=== PATIENT | female | born 1935 | race Caucasian/White ===

== ENCOUNTER 2019-03-21 10:57 | Inpatient (IN) | payer MEDICARE, OTHER ==
[2019-03-21] MEDS ORDERED: methylPREDNISolone SOD SUCCI 125 MG/2 ML VIAL IV STA (11:13)
[2019-03-21] MEDS ORDERED: IPRATROPIUM-ALBUTEROL 3 ML NEB INHALATION STA ×2 (11:13→14:29)
--- NOTE | 2019-03-21 11:18 | ED ---
General Adult HPI - General Chief complaint: Shortness of Breath Stated complaint: MATTEO Time Seen by Provider: 03/21/19 11:07 Source: patient, EMS Mode of arrival: EMS Limitations: no limitations - History of Present Illness Initial comments: Patient presents to the ED by ambulance for evaluation. Patient states that she has felt dyspneic since this morning. Patient also admits to having a cough and nasal congestion. Patient has a history of COPD and CHF. Patient was given a DuoNeb treatment by EMS with some improvement in her dyspnea per patient. Patient denies having any pain, fever or chills, a headache, focal neuro deficit, chest pain, hemoptysis, palpitations, dizziness, nausea/vomiting/diaphoresis, abdominal pain, decreased urine output, urinary symptoms, leg or calf swelling or tenderness, or any other symptoms or complaints. - Related Data Home Medications Medication Instructions Recorded Confirmed Albuterol Inhaler [Ventolin Hfa 1 - 2 puff INHALATION RT-Q6H PRN 03/21/19 03/21/19 Inhaler] Allergies Allergy/AdvReac Type Severity Reaction Status Date / Time No Known Allergies Allergy Unverified 03/21/19 11:16 Review of Systems ROS Statement: Those systems with pertinent positive or pertinent negative responses have been documented in the HPI. ROS Other: All systems not noted in ROS Statement are negative. Past Medical History Past Medical History: Heart Failure, COPD History of Any Multi-Drug Resistant Organisms: None Reported Past Surgical History: Hysterectomy, Tonsillectomy Past Psychological History: No Psychological Hx Reported Smoking Status: Former smoker Past Alcohol Use History: None Reported Past Drug Use History: None Reported General Exam Limitations: no limitations General appearance: alert, in no apparent distress Head exam: Present: atraumatic, normocephalic Eye exam: Present: normal appearance, EOMI ENT exam: Present: mucous membranes moist Neck exam: Present: other (Trachea is in midline) Respiratory exam: Present: wheezes, decreased breath sounds. Absent: respirator y distress, rales, rhonchi, stridor Cardiovascular Exam: Present: regular rate, normal rhythm, normal heart sounds, other (Normal radial pulses bilaterally) GI/Abdominal exam: Present: soft. Absent: distended, tenderness Extremities exam: Absent: tenderness, pedal edema, calf tenderness Neurological exam: Present: alert, oriented X3. Absent: motor sensory deficit Psychiatric exam: Present: normal affect, normal mood Skin exam: Present: warm, dry, intact, normal color Course Vital Signs 03/21/19 03/21/19 03/21/19 11:11 11:43 11:51 Temperature 97.1 F L Pulse Rate 95 90 92 Respiratory 22 Rate Blood Pressure 134/85 O2 Sat by Pulse 96 Oximetry 03/21/19 12:38 Temperature Pulse Rate 94 Respiratory 18 Rate Blood Pressure 120/73 O2 Sat by Pulse 95 Oximetry - Reevaluation(s) Reevaluation #1: 03/21/19 14:24 Case, H&P, test results and ED management thus far were discussed with Dr. Rodriguez. He accepts hospital floor admission. He has no further recommendations at this time. 03/21/19 14:45 Patient states that her dyspnea has improved with the DuoNeb treatment that she received in the ED. Patient denies development of any new symptoms while in the ED. Patient remains alert and breathing comfortably. Patient is aware of her test results, and she agrees with hospital admission at this time. EKG Findings - EKG Comments: EKG Findings:: Normal sinus rhythm, ventricular rate of 91 bpm, normal OH and QRS intervals, normal QT interval, no ST or T-wave abnormality, normal axis, normal EKG Medical Decision Making - Medical Decision Making I suspect that the patient's dyspnea is likely secondary to COPD exacerbation and community-acquired pneumonia. Patient has been treated with DuoNeb treatments, IV steroids and IV antibiotics. Patient will be admitted to the medical service under care of Dr. Rodriguez. - Lab Data Result diagrams: 03/21/19 11:15 03/21/19 11:15 Lab Results 03/21/19 03/21/19 03/21/19 Range/Units 11:15 11:15 11:15 WBC 10.5 (3.8-10.6) k/uL RBC 4.26 (3.80-5.40) m/uL Hgb 12.3 (11.4-16.0) gm/dL Hct 38.0 (34.0-46.0) % MCV 89.1 (80.0-100.0) fL MCH 28.9 (25.0-35.0) pg MCHC 32.4 (31.0-37.0) g/dL RDW 13.3 (11.5-15.5) % Plt Count 404 (150-450) k/uL Neutrophils % 78 % Lymphocytes % 12 % Monocytes % 6 % Eosinophils % 2 % Basophils % 1 % Neutrophils # 8.2 H (1.3-7.7) k/uL Lymphocytes # 1.3 (1.0-4.8) k/uL Monocytes # 0.6 (0-1.0) k/uL Eosinophils # 0.2 (0-0.7) k/uL Basophils # 0.1 (0-0.2) k/uL Hypochromasia Slight PT (9.0-12.0) sec INR (<1.2) APTT (22.0-30.0) sec Sodium (137-145) mmol/L Potassium (3.5-5.1) mmol/L Chloride (98-107) mmol/L Carbon Dioxide (22-30) mmol/L Anion Gap mmol/L BUN (7-17) mg/dL Creatinine (0.52-1.04) mg/dL Est GFR (CKD-EPI)AfAm (>60 ml/min/1.73 sqM) Est GFR (CKD-EPI)NonAf (>60 ml/min/1.73 sqM) Glucose (74-99) mg/dL Plasma Lactic Acid Jr 1.4 (0.7-2.0) mmol/L Calcium (8.4-10.2) mg/dL Total Bilirubin (0.2-1.3) mg/dL AST (14-36) U/L ALT (9-52) U/L Alkaline Phosphatase (38-126) U/L Troponin I (0.000-0.034) ng/mL NT-Pro-B Natriuret Pep 216 pg/mL Total Protein (6.3-8.2) g/dL Albumin (3.5-5.0) g/dL 03/21/19 03/21/19 03/21/19 Range/Units 11:15 11:15 11:15 WBC (3.8-10.6) k/uL RBC (3.80-5.40) m/uL Hgb (11.4-16.0) gm/dL Hct (34.0-46.0) % MCV (80.0-100.0) fL MCH (25.0-35.0) pg MCHC (31.0-37.0) g/dL RDW (11.5-15.5) % Plt Count (150-450) k/uL Neutrophils % % Lymphocytes % % Monocytes % % Eosinophils % % Basophils % % Neutrophils # (1.3-7.7) k/uL Lymphocytes # (1.0-4.8) k/uL Monocytes # (0-1.0) k/uL Eosinophils # (0-0.7) k/uL Basophils # (0-0.2) k/uL Hypochromasia PT 10.2 (9.0-12.0) sec INR 0.9 (<1.2) APTT 26.1 (22.0-30.0) sec Sodium 141 (137-145) mmol/L Potassium 4.6 (3.5-5.1) mmol/L Chloride 102 (98-107) mmol/L Carbon Dioxide 33 H (22-30) mmol/L Anion Gap 6 mmol/L BUN 24 H (7-17) mg/dL Creatinine 0.81 (0.52-1.04) mg/dL Est GFR (CKD-EPI)AfAm 77 (>60 ml/min/1.73 sqM) Est GFR (CKD-EPI)NonAf 67 (>60 ml/min/1.73 sqM) Glucose 91 (74-99) mg/dL Plasma Lactic Acid Jr (0.7-2.0) mmol/L Calcium 9.5 (8.4-10.2) mg/dL Total Bilirubin 0.4 (0.2-1.3) mg/dL AST 25 (14-36) U/L ALT 9 (9-52) U/L Alkaline Phosphatase 77 (38-126) U/L Troponin I <0.012 (0.000-0.034) ng/mL NT-Pro-B Natriuret Pep pg/mL Total Protein 6.8 (6.3-8.2) g/dL Albumin 3.8 (3.5-5.0) g/dL - Radiology Data Radiology results: image reviewed (Chest x-ray shows mild cardiomegaly, hyperinflated lungs and a right middle lobe infiltrate) Disposition Clinical Impression: Dyspnea, Acute exacerbation of chronic obstructive pulmonary disease, Community acquired pneumonia Disposition: ADMITTED IP TO THIS HOSP Condition: Stable Is patient prescribed a controlled substance at d/c from ED?: No Referrals: Jp Caraballo DO [Primary Care Provider] - 1-2 days Time of Disposition: 14:24 Decision Date: 03/21/19 Decision Time: 14:24
[2019-03-21 11:51] LABS: Basophils # (A) 0.1 k/uL (0-0.2); Basophils % (A) 1 %; Eosinophils # (A) 0.2 k/uL (0-0.7); Eosinophils % (A) 2 %; HGB 12.3 gm/dL (11.4-16.0); Hypochromasia Slight; Lymphocytes # (A) 1.3 k/uL (1.0-4.8); Lymphocytes % (A) 12 %; MCH 28.9 pg (25.0-35.0); MCHC 32.4 g/dL (31.0-37.0); MCV 89.1 fL (80.0-100.0); Mean Platelet Volume 6.1; Monocytes # (A) 0.6 k/uL (0-1.0); Monocytes % (A) 6 %; Neutrophils # (A) 8.2 k/uL (1.3-7.7); Neutrophils % (A) 78 %; Platelet Count 404 k/uL (150-450); RBC 4.26 m/uL (3.80-5.40); RDW 13.3 % (11.5-15.5); WBC 10.5 k/uL (3.8-10.6)
[2019-03-21 11:59] LABS: Albumin 3.8 g/dL (3.5-5.0); Calcium 9.5 mg/dL (8.4-10.2); Potassium 4.6 mmol/L (3.5-5.1); Total Bilirubin 0.4 mg/dL (0.2-1.3); Total Protein 6.8 g/dL (6.3-8.2)
[2019-03-21 12:08] LABS: INR 0.9 (<1.2); Partial Thromboplastin Time 26.1 sec (22.0-30.0); Prothrombin Time 10.2 sec (9.0-12.0)
--- NOTE | 2019-03-21 13:59 | XR ---
EXAMINATION TYPE: XR chest 2V DATE OF EXAM: 03/21/2019 HISTORY: difficulty breathing. REFERENCE: NONE. FINDINGS: The lungs are overinflated. The heart is mildly enlarged. There is some scarring in the rig ht upper lung. Left lung is clear. There is some increased density of the right lung base. I cannot r ule out a right middle lobe infiltrate. IMPRESSION: 1. COPD. 2. MILD CARDIOMEGALY. 3. I COULD NOT EXCLUDE AN EARLY INFILTRATE IN THE RIGHT MIDDLE LOBE.
[2019-03-21] MEDS ORDERED: AZITHROMYCIN 500 MG in SODIUM CHLORIDE 0.9% 250 ML IVPB STA ×2 (14:18→14:29)
[2019-03-21] MEDS: ALBUTEROL NEBULIZED 2.5 MG/3 ML INHALATION SCH ×2 (14:55→20:20)
[2019-03-21 16:55] LABS: Glucose,Whole Blood 167 mg/dL (75-99)
[2019-03-21] MEDS: methylPREDNISolone SOD SUCCI 40 MG/ML 1 ML VIAL IV SCH (17:47)
--- NOTE | 2019-03-21 17:53 | P.HPIM ---
History of Present Illness This is a pleasant 83 years old female with past medical history of COPD and heart failure presents because of dyspnea and mild dry cough of one day duration as per pt, pt is ex-smoker who quit about few months ago, however she denies chest pain , no change in her urine or bowel habits, no fever she is not on home oxygen or steroids, she states she had copd exacerbation about one month ago. 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 Chest x-ray: COPD, cannot exclude infiltrate in the right middle lobe as per radiologist although I think it's more of the confluence secretions on both sides of the lung. EKG showing normal sinus rhythm at 91 with QTC at 450, no significant ST-T changes Review of Systems CONSTITUTIONAL: No fever, no malaise, no fatigue. HEENT: No recent visual problems or hearing problems. Denied any sore throat. CARDIOVASCULAR: No orthopnea, PND, no palpitations, no syncope. PULMONARY: no hemoptysis. GASTROINTESTINAL: No diarrhea, no nausea, no vomiting, no abdominal pain. Normoactive bowel sounds. NEUROLOGICAL: No headaches, no weakness, no numbness. HEMATOLOGICAL: Denies any bleeding or petechiae. GENITOURINARY: Denies any burning micturition, frequency, or urgency. MUSCULOSKELETAL/RHEUMATOLOGICAL: Denies any joint pain, swelling, or any muscle pain. ENDOCRINE: Denies any polyuria or polydipsia. Past Medical History Past Medical History: Heart Failure, COPD History of Any Multi-Drug Resistant Organisms: None Reported Past Surgical History: Hysterectomy, Tonsillectomy Past Psychological History: No Psychological Hx Reported Smoking Status: Former smoker Past Alcohol Use History: None Reported Past Drug Use History: None Reported Medications and Allergies Home Medications Medication Instructions Recorded Confirmed Type Albuterol Inhaler [Ventolin Hfa 1 - 2 puff INHALATION RT-Q6H PRN 03/21/19 03/21/19 History Inhaler] Aspirin [Adult Low Dose Aspirin EC] 81 mg PO DAILY 03/21/19 03/21/19 History Tiotropium 18 Mcg/Puff [Spiriva] 1 puff INHALATION DAILY 03/21/19 03/21/19 History Allergies Allergy/AdvReac Type Severity Reaction Status Date / Time No Known Allergies Allergy Unverified 03/21/19 11:16 Physical Exam Vitals: Vital Signs Temp Pulse Resp BP Pulse Ox 03/21/19 12:38 94 18 120/73 95 03/21/19 11:51 92 03/21/19 11:43 90 03/21/19 11:11 97.1 F L 95 22 134/85 96 Intake and Output 03/20/19 03/21/19 03/21/19 22:59 06:59 14:59 Other: Weight 43.998 kg GENERAL: The patient is alert and oriented x3, not in any acute distress. Well developed, well nourished. HEENT: Pupils are round and equally reacting to light. EOMI. No scleral icterus. No conjunctival pallor. Normocephalic, atraumatic. No pharyngeal erythema. No thyromegaly. CARDIOVASCULAR: S1 and S2 present. No murmurs, rubs, or gallops. -PULMONARY: barrel chest, Chest is clear to auscultation, bilateral wheezing and prolonged expiration ABDOMEN: Soft, nontender, nondistended, normoactive bowel sounds. No palpable organomegaly. MUSCULOSKELETAL: No joint swelling or deformity. EXTREMITIES: No cyanosis, clubbing, or pedal edema. NEUROLOGICAL: Gross neurological examination did not reveal any focal deficits. SKIN: No rashes. no petechiae. Results CBC & Chem 7: 03/21/19 11:15 03/21/19 11:15 Labs: Abnormal Lab Results - Last 24 Hours (Table) 03/21/19 03/21/19 Range/Units 11:15 11:15 Neutrophils # 8.2 H (1.3-7.7) k/uL Carbon Dioxide 33 H (22-30) mmol/L BUN 24 H (7-17) mg/dL Assessment and Plan Assessment: Acute COPD exacerbation, cannot exclude pneumonia ex-smoker and nicotine dependance , quit few months ago as per pt Chronic congestive heart failure, unknown ejection fraction Plan: This is a pleasant 83 years old female who presents with acute COPD exace rbation. Cannot exclude pneumonia. Continue with steroids, and continue later sent oxygen, antibiotics. Incentive spirometry, Pulmonary consult. check influenza ag Labs and medication were reviewed.. Continue same treatment. Continue with symptomatic treatment. Resume home medication. Monitor lytes and vitals. DVT and GI prophylaxis. Further recommendations of the clinical course of the p atient DVT prophylaxis: Subcutaneous heparin GI Prophylaxis: Pepcid PT/OT: Pending Prognosis is guarded
[2019-03-21 19:57] LABS: Glucose,Whole Blood 204 mg/dL (75-99)
[2019-03-21] MEDS: HEPARIN SODIUM,PORCINE 5,000 UNIT/ML 1 ML VIAL SQ SCH (21:08)
[2019-03-21] MEDS: FAMOTIDINE 20 MG/2 ML VIAL IV SCH (21:08)
[2019-03-22] MEDS: methylPREDNISolone SOD SUCCI 40 MG/ML 1 ML VIAL IV SCH ×4 (00:38→23:51)
[2019-03-22 07:04] LABS: Glucose,Whole Blood 122 mg/dL (75-99)
[2019-03-22 07:17] LABS: Calcium 9.3 mg/dL (8.4-10.2); Potassium 4.6 mmol/L (3.5-5.1)
[2019-03-22] MEDS: AZITHROMYCIN 500 MG in SODIUM CHLORIDE 0.9% 250 ML IVPB SCH (07:44)
[2019-03-22] MEDS: HEPARIN SODIUM,PORCINE 5,000 UNIT/ML 1 ML VIAL SQ SCH ×2 (07:44→20:34)
[2019-03-22] MEDS: FAMOTIDINE 20 MG/2 ML VIAL IV SCH (07:44)
[2019-03-22] MEDS: ALBUTEROL NEBULIZED 2.5 MG/3 ML INHALATION SCH (08:47)
[2019-03-22] MEDS ORDERED: IPRATROPIUM-ALBUTEROL 3 ML NEB INHALATION PRN (11:10)
[2019-03-22] MEDS: IPRATROPIUM-ALBUTEROL 3 ML NEB INHALATION SCH ×2 (11:59→19:58)
--- NOTE | 2019-03-22 12:06 | P.PN ---
Subjective This is a pleasant 83 years old female with past medical history of COPD and heart failure presents because of dyspnea and mild dry cough of one day duration as per pt, pt is ex-smoker who quit about few months ago, however she denies chest pain , no change in her urine or bowel habits, no fever she is not on home oxygen or steroids, she states she had copd exacerbation about one month ago. 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 Chest x-ray: COPD, cannot exclude infiltrate in the right middle lobe as per radiologist although I think it's more of the confluence secretions on both sides of the lung. EKG showing normal sinus rhythm at 91 with QTC at 450, no significant ST-T changes 03/22/2019 Patient still dyspneic with some improvement, she still have mild cough with no phlegm. On examination she has bilateral prolonged expiratory wheezing although is less pronounced than yesterday. She is saturating 96% on 2 L oxygen, labs from today show a stable creatinine and electrolytes, influenza antigen is not detected in her swipe, sugar is controlled, patient remains on Solu-Medrol 40 mg plus Zithromax daily. Also she is on a breathing treatment. Pulmonary team was consulted. Review of systems CONSTITUTIONAL: No fever, no malaise, no fatigue. HEENT: No recent visual problems or hearing problems. Denied any sore throat. CARDIOVASCULAR: No orthopnea, PND, no palpitations, no syncope. PULMONARY: no hemoptysis. GASTROINTESTINAL: No diarrhea, no nausea, no vomiting, no abdominal pain. Normoactive bowel sounds. NEUROLOGICAL: No headaches, no weakness, no numbness. HEMATOLOGICAL: Denies any bleeding or petechiae. GENITOURINARY: Denies any burning micturition, frequency, or urgency. MUSCULOSKELETAL/RHEUMATOLOGICAL: Denies any joint pain, swelling, or any muscle pain. ENDOCRINE: Denies any polyuria or polydipsia. Active Medications Generic Name Dose Route Start Last Admin Trade Name Freq PRN Reason Stop Dose Admin Albuterol/Ipratropium 3 ml 03/22/19 13:00 03/22/19 11:59 Duoneb 0.5 Mg-3 Mg/3 Ml Soln INHALATION 3 ml RT-TID KAMALJIT Administration Albuterol/Ipratropium 3 ml 03/22/19 11:10 Duoneb 0.5 Mg-3 Mg/3 Ml Soln INHALATION RT-Q2H PRN Shortness Of Breath Or Wheezing Budesonide/Formoterol Fumarate 2 puff 03/22/19 20:00 Symbicort 160-4.5 Mcg Inhaler INHALATION RT-BID KAMALJIT Famotidine 20 mg 03/21/19 21:00 03/22/19 07:44 Pepcid IV 20 mg Q12HR KAMALJIT Administration Heparin Sodium (Porcine) 5,000 unit 03/21/19 21:00 03/22/19 07:44 Heparin SQ 5,000 unit Q12HR KAMALJIT Administration Azithromycin 500 mg/ Sodium 250 mls @ 250 mls/hr 03/22/19 09:00 03/22/19 07:44 Chloride IVPB 03/26/19 09:01 250 mls/hr DAILY KAMALJIT Administration Methylprednisolone Sodium Succinate 40 mg 03/21/19 16:00 03/22/19 07:44 Solu-Medrol IV 40 mg Q8HR KAMALJIT Administration Objective - Vital Signs Vital signs: Vital Signs Temp 98.3 F 03/22/19 04:40 Pulse 72 03/22/19 04:40 Resp 20 03/22/19 04:40 BP 166/98 03/22/19 04:40 Pulse Ox 96 03/22/19 04:40 Intake & Output 03/21/19 03/22/19 03/22/19 18:59 06:59 18:59 Intake Total 1180 Output Total 1000 Balance 180 Weight 43.998 kg Intake: Oral 1180 Output: Urine 1000 Other: Voiding Method Bedside Commode Bedside Commode # Voids 1 - Exam GENERAL: The patient is alert and oriented x3, not in any acute distress. Well developed, well nourished. HEENT: Pupils are round and equally reacting to light. EOMI. No scleral icterus. No conjunctival pallor. Normocephalic, atraumatic. No pharyngeal erythema. No thyromegaly. CARDIOVASCULAR: S1 and S2 present. No murmurs, rubs, or gallops. -PULMONARY: Chest is clear to auscultation, bilateral expiratory wheezing with respiration ABDOMEN: Soft, nontender, nondistended, normoactive bowel sounds. No palpable organomegaly. MUSCULOSKELETAL: No joint swelling or deformity. EXTREMITIES: No cyanosis, clubbing, or pedal edema. NEUROLOGICAL: Gross neurological examination did not reveal any focal deficits. SKIN: No rashes. no petechiae. - Labs CBC & Chem 7: 03/21/19 11:15 03/22/19 06:53 Labs: Abnormal Lab Results - Last 24 Hours (Table) 03/21/19 03/21/19 03/22/19 Range/Units 16:53 19:56 06:53 BUN 27 H (7-17) mg/dL Glucose 134 H (74-99) mg/dL POC Glucose (mg/dL) 167 H 204 H (75-99) mg/dL 03/22/19 Range/Units 07:02 BUN (7-17) mg/dL Glucose (74-99) mg/dL POC Glucose (mg/dL) 122 H (75-99) mg/dL Assessment and Plan Assessment: Acute COPD exacerbation, cannot exclude pneumonia ex-smoker and nicotine dependance , quit few months ago as per pt Chronic congestive heart failure, unknown ejection fraction Plan: This is a pleasant 83 years old female who presents with acute COPD exacerbation. Cannot exclude pneumonia. Continue with steroids, and continue later sent oxygen, antibiotics. Incentive spirometry, Pulmonary consult. check influenza ag Labs and medication were reviewed.. Continue same treatment. Continue with symptomatic treatment. Resume home medication. Monitor lytes and vitals. DVT and GI prophylaxis. Further recommendations of the clinical course of the patient DVT prophylaxis: Subcutaneous heparin GI Prophylaxis: Pepcid PT/OT: Pending Prognosis is guarded
--- NOTE | 2019-03-22 14:57 | P.CNPUL ---
History of Present Illness Consult date: 03/22/19 Requesting physician: Harley Linares Reason for consult: dyspnea Chief complaint: acute dyspnea, cough and congestion History of present illness: This is a 83-year-old white female patient of Dr. 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 Patient states she was at her daughter's house, and head done eating breakfast when she started experiencing severe difficulty breathing. Patient has a history of COPD, she is on home oxygen, she is on Spiriva and Ventolin inhaler, baseline FEV1 is unknown to us. Never been hospitalized at this hospital before. Denied any fever or chills, reported some limited cough, no significant congestion. Denied any chest pain, no nausea vomiting or diarrhea. she is an ex-smoker. Chest x-ray was taken showing COPD, and a possibility of early infiltrate in the right middle lobe. he was started on azithromycin, and Rocephin, IV steroids, nebulized bronchodilators, we're consulted for evaluation of COPD, and the poss ibility of right mid lobe infiltrate Review of Systems All systems: negative Constitutional: Denies chills, Denies fever Eyes: denies blurred vision, denies pain Ears, nose, mouth and throat: Denies headache, Denies sore throat Cardiovascular: Denies chest pain, Denies shortness of breath Respiratory: Reports dyspnea, Reports home oxygen, Denies cough Gastrointestinal: Denies abdominal pain, Denies diarrhea, Denies nausea, Denies vomiting Genitourinary: Denies dysuria, Denies hematuria Musculoskeletal: Denies myalgias Integumentary: Denies pruritus, Denies rash Neurological: Denies numbness, Denies weakness Psychiatric: Denies anxiety, Denies depression Endocrine: Denies fatigue, Denies weight change Past Medical History Past Medical History: Heart Failure, COPD Additional Past Medical History / Comment(s): Pneumonia in January 2019 History of Any Multi-Drug Resistant Organisms: None Reported Past Surgical History: Hysterectomy, Tonsillectomy Additional Past Surgical History / Comment(s): cataract surgery x2 Past Anesthesia/Blood Transfusion Reactions: No Reported Reaction Past Psychological History: No Psychological Hx Reported Smoking Status: Former smoker Past Alcohol Use History: None Reported Past Drug Use History: None Reported - Past Family History Mother Additional Family Medical History / Comment(s): Suicide Father Family Medical History: Myocardial Infarction ([place]) Medications and Allergies Home Medications Medication Instructions Recorded Confirmed Type Albuterol Inhaler [Ventolin Hfa 2 puff INHALATION Q6HR PRN 03/21/19 03/21/19 History Inhaler] Aspirin [Adult Low Dose Aspirin EC] 81 mg PO DAILY 03/21/19 03/21/19 History Tiotropium 18 Mcg/Puff [Spiriva] 1 puff INHALATION DAILY 03/21/19 03/21/19 History Allergies Allergy/AdvReac Type Severity Reaction Status Date / Time No Known Allergies Allergy Unverified 03/21/19 11:16 Physical Exam Vitals: Vital Signs Temp Pulse Pulse Resp BP BP Pulse Ox 03/22/19 12:38 97.6 F 85 18 141/88 97 03/22/19 12:10 80 03/22/19 11:59 84 03/22/19 04:40 98.3 F 72 20 166/98 96 03/22/19 00:00 91 16 03/21/19 21:00 97.8 F 91 16 124/72 96 03/21/19 20:29 99 03/21/19 20:22 96 03/21/19 17:21 97.7 F 99 20 112/67 94 L 03/21/19 15:06 102 H 03/21/19 15:00 96 22 120/101 03/21/19 14:56 96 Intake and Output 03/21/19 03/22/19 03/22/19 22:59 06:59 14:59 Intake Total 590 590 Output Total 400 600 Balance 190 -10 Intake: Oral 590 590 Output: Urine 400 600 Other: Voiding Method Bedside Commode Bedside Commode # Voids 2 1 GENERAL EXAM: Alert, very pleasant, 83-year-old white female, on 2 L of oxygen with a pulse ox of 97%comfortable in no apparent distress. HEAD: Normocephalic/atraumatic. EYES: Normal reaction of pupils, equal size. Conjunctiva pink, sclera white. NOSE: Clear with pink turbinates. THROAT: No erythema or exudates. NECK: No masses, no JVD, no thyroid enlargement, no adenopathy. CHEST: No chest wall deformity. Symmetrical expansion. LUNGS: Equal air entry with wheezes, but no rhonchi or dullness. CVS: Regular rate and rhythm, normal S1 and S2, no gallops, no murmurs, no rubs ABDOMEN: Soft, nontender. No hepatosplenomegaly, normal bowel sounds, no guarding or rigidity. EXTREMITIES: No clubbing, no edema, no cyanosis, 2+ pulses and upper and lower extremities. MUSCULOSKELETAL: Muscle strength and tone normal. SPINE: No scoliosis or deformity SKIN: No rashes CENTRAL NERVOUS SYSTEM: Alert and oriented -3. No focal deficits, tone is normal in all 4 extremities. PSYCHIATRIC: Alert and oriented -3. Appropriate affect. Intact judgment and insight. Results - Laboratory Findings CBC and BMP: 03/21/19 11:15 03/22/19 06:53 PT/INR, D-dimer PT 10.2 sec (9.0-12.0) 03/21/19 11:15 INR 0.9 (<1.2) 03/21/19 11:15 Abnormal lab findings: Abnormal Labs 03/21/19 03/21/19 03/21/19 11:15 11:15 16:53 Neutrophils # 8.2 H Carbon Dioxide 33 H BUN 24 H Glucose POC Glucose (mg/dL) 167 H 03/21/19 03/22/19 03/22/19 19:56 06:53 07:02 Neutrophils # Carbon Dioxide BUN 27 H Glucose 134 H POC Glucose (mg/dL) 204 H 122 H - Diagnostic Findings Chest x-ray: report reviewed, image reviewed Assessment and Plan Plan: Assessment: #1. Acute exacerbation of chronic obstructive pulmonary disease, and the possibility of early infiltrate versus atelectasis in the right middle lobe #2. Advanced COPD, baseline FEV1 is unknown, patient is oxygen dependent at 2 L at her baseline #3. Former smoker #4. History of congestive heart failure, with an unknown left ventricular systolic function plan: Continue with current antibiotic coverage, Zithromax and Rocephin, we'll add Symbicort, continue DuoNeb, we'll obtain follow-up chest x-ray tomorrow, patient has improved, eating easier today, doubt possibility of underlying pneumonia, but cannot completely excluded. We'll continue to follow I performed a history & physical examination of the patient and discussed their management with my nurse practitioner, Fozia Zafar. I reviewed the nurse practitioner's note and agree with the documented findings and plan of care. Lung sounds are positive for expiratory wheezes throughout the lung garcia. The findings and the impression was discussed with the patient. I attest to the documentation by the nurse practitioner. Time with Patient: Greater than 30
[2019-03-22] MEDS: SYMBICORT 160-4.5 MCG INHALER INHALATION SCH (19:56)
[2019-03-23] MEDS: SYMBICORT 160-4.5 MCG INHALER INHALATION SCH ×2 (07:09→20:29)
[2019-03-23] MEDS: IPRATROPIUM-ALBUTEROL 3 ML NEB INHALATION SCH ×3 (07:09→20:29)
[2019-03-23 07:22] LABS: Calcium 9.2 mg/dL (8.4-10.2); Potassium 4.3 mmol/L (3.5-5.1)
[2019-03-23] MEDS: methylPREDNISolone SOD SUCCI 40 MG/ML 1 ML VIAL IV SCH ×2 (08:11→17:35)
[2019-03-23] MEDS: HEPARIN SODIUM,PORCINE 5,000 UNIT/ML 1 ML VIAL SQ SCH ×2 (08:14→21:25)
[2019-03-23] MEDS: FAMOTIDINE 20 MG TAB PO SCH (08:14)
[2019-03-23] MEDS ORDERED: FAMOTIDINE 20 MG/2 ML VIAL IV SCH (09:00)
[2019-03-23] MEDS: AZITHROMYCIN 500 MG in SODIUM CHLORIDE 0.9% 250 ML IVPB SCH (09:00)
[2019-03-23 10:21] LABS: Appearance,Urine Clear (Clear); Bilirubin,Urine Negative (Negative); Blood,Urine Negative (Negative); Color,Urine Light Yellow; Glucose,Urine (UA) Negative (Negative); Ketones,Urine Negative (Negative); Leukocyte Esterase,Urine Negative (Negative); Nitrite,Urine Negative (Negative); PH, Urine 6.5 (5.0-8.0); Protein,Urine Negative (Negative); Specific Gravity,Urine 1.012 (1.001-1.035); Urobilinogen,Urine <2.0 mg/dL (<2.0)
--- NOTE | 2019-03-23 12:30 | P.PN ---
Subjective Progress Note Date: 03/23/19 Principal diagnosis: The patient is seen today 03/23/2019 in follow-up on the regular medical floor. She is awake and alert in no acute distress. Currently sitting up in a chair at the bedside. Breathing easier today as compared to yesterday. Maintaining good O2 saturations in the upper 90s on 2 L/m per nasal cannula. She's afebrile. Hemodynamically stable. Blood culture reveals no growth. Sodium 140. Potassium 4.3. Bicarb 31. Creatinine 0.79. Currently on ceftriaxone and azithromycin along with DuoNeb inhalations, Symbicort, IV Solu-Medrol Objective - Vital Signs Vital signs: Vital Signs Temp 98.6 F 03/23/19 05:00 Pulse 84 03/23/19 12:11 Resp 18 03/23/19 05:00 BP 147/72 03/23/19 05:00 Pulse Ox 97 03/23/19 05:00 Intake & Output 03/22/19 03/23/19 03/23/19 18:59 06:59 18:59 Weight 49.5 kg Other: Voiding Method Bedside Commode Toilet Bedside Commode # Voids 2 4 - Exam GENERAL EXAM: Alert, very pleasant, 83-year-old female patient, on 2 L of oxygen with a pulse ox of 97%, comfortable in no apparent distress. HEAD: Normocephalic/atraumatic. EYES: Normal reaction of pupils, equal size. Conjunctiva pink, sclera white. NOSE: Clear with pink turbinates. THROAT: No erythema or exudates. NECK: No masses, no JVD, no thyroid enlargement, no adenopathy. CHEST: No chest wall deformity. Symmetrical expansion. LUNGS: Equal air entry with wheezes, but no rhonchi or dullness. CVS: Regular rate and rhythm, normal S1 and S2, no gallops, no murmurs, no rubs ABDOMEN: Soft, nontender. No hepatosplenomegaly, normal bowel sounds, no guarding or rigidity. EXTREMITIES: No clubbing, no edema, no cyanosis, 2+ pulses and upper and lower extremities. MUSCULOSKELETAL: Muscle strength and tone normal. SPINE: No scoliosis or deformity SKIN: No rashes CENTRAL NERVOUS SYSTEM: No focal deficits, tone is normal in all 4 extremities. PSYCHIATRIC: Alert and oriented -3. Appropriate affect. Intact judgment and insight. - Labs CBC & Chem 7: 03/21/19 11:15 03/23/19 06:40 Labs: Abnormal Lab Results - Last 24 Hours (Table) 03/23/19 Range/Units 06:40 Carbon Dioxide 31 H (22-30) mmol/L BUN 29 H (7-17) mg/dL Glucose 113 H (74-99) mg/dL Microbiology - Last 24 Hours (Table) 03/21/19 14:00 Blood Culture - Preliminary Blood No Growth after 24 hours Assessment and Plan Assessment: Assessment: #1. Acute exacerbation of chronic obstructive pulmonary disease, and the possibility of early infiltrate versus atelectasis in the right middle lobe #2. Advanced COPD, baseline FEV1 is unknown, patient is oxygen dependent at 2 L at her baseline #3. Former smoker #4. History of congestive heart failure, with an unknown left ventricular systolic function Plan: The patient was seen and evaluated by Dr. Castellanos. She is currently stable from the pulmonary standpoint. Follow-up chest x-ray pending. We'll continue to follow. I, the cosigning physician, performed a history & physical examination of the patient. Lungs sounds with faint bilateral end expiratory wheeze, diminished. Maintaining good O2 saturations in the 90s on 2 L/m per nasal cannula. I discussed the assessment and plan of care with my nurse practitioner, Kelly Schumacher. I attest to the above note as dictated by her.
--- NOTE | 2019-03-23 12:55 | XR ---
EXAMINATION TYPE: XR chest 1V portable DATE OF EXAM: 03/23/2019 COMPARISON: NONE HISTORY: difficulty breathing TECHNIQUE: Single frontal view of the chest is obtained. FINDINGS: The lungs are overinflated. The heart is mildly enlarged. There is some scarring in the ri ght upper lung. Left lung is clear. There is some increased density of the right lung base. Right-tawana ed subsegmental consolidation stable. Diffuse osteopenia. Irregular density in the right upper lobe. IMPRESSION: 1. COPD with persistent basilar middle lobe atelectasis versus infiltrate. 2. Irregular density right upper lobe underlying neoplasm in the differential diagnosis recommend CT of the chest..
[2019-03-23] MEDS ORDERED: RX INFO: IV CONTRAST WAS GIVEN 1 EACH MISC MISCELLANE PRN (13:39)
--- NOTE | 2019-03-23 15:17 | CT ---
EXAMINATION TYPE: CT chest w con DATE OF EXAM: 03/23/2019 COMPARISON: Chest x-ray 03/23/2019 HISTORY: SOB, COPD CT DLP: 156.4 mGycm Automated exposure control for dose reduction was used. CONTRAST: CT scan of the chest is performed with IV Contrast, patient injected with 100 mL of Isovue 300. FINDINGS: LUNGS: Severe emphysematous changes are noted bilaterally. Biapical scarring with associated pleural thickening noted particularly right upper lobe posteriorly with internal calcifications identified. T his is likely postinflammatory in nature. Within the right lower lobe posteriorly there is a minimall y spiculated nodule measuring 1.[address] recommended to exclude malignancy. No additional nodules identified. MEDIASTINUM: There are no greater than 1 cm hilar or mediastinal lymph nodes. No pericardial effusi on is seen. Thoracic aorta is of normal caliber. The heart is not enlarged. UPPER ABDOMEN: Left renal cysts. Hepatic cysts noted. OTHER: No additional significant abnormality is seen. IMPRESSION: 1. Slightly spiculated right lower lobe nodule measuring 1.[address] recommended to exclude maligna ncy. 2. Right upper lobe posterior pleural thickening with internal calcifications is felt to be postinfla mmatory in nature however could be further evaluated PET/CT. 3. Severe emphysematous changes noted.
--- NOTE | 2019-03-23 17:13 | P.PN ---
Subjective This is a pleasant 83 years old female with past medical history of COPD and heart failure presents because of dyspnea and mild dry cough of one day duration as per pt, pt is ex-smoker who quit about few months ago, however she denies chest pain , no change in her urine or bowel habits, no fever she is not on home oxygen or steroids, she states she had copd exacerbation about one month ago. 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 Chest x-ray: COPD, cannot exclude infiltrate in the right middle lobe as per radiologist although I think it's more of the confluence secretions on both sides of the lung. EKG showing normal sinus rhythm at 91 with QTC at 450, no significant ST-T changes 03/22/2019 Patient still dyspneic with some improvement, she still have mild cough with no phlegm. On examination she has bilateral prolonged expiratory wheezing although is less pronounced than yesterday. She is saturating 96% on 2 L oxygen, labs from today show a stable creatinine and electrolytes, influenza antigen is not detected in her swipe, sugar is controlled, patient remains on Solu-Medrol 40 mg plus Zithromax daily. Also she is on a breathing treatment. Pulmonary team was consulted. 03/23/2019 patien dyspnea is improving gradually, vitals are stable and she saturating 96% on 2 L oxygen via nasal cannula. Her creatinine and a transverse are within normal, urinalysis is negative, blood culture and urine culture no growth so far. Repeat chest x-ray was suspicious for a mass, CT of the chest with contrast has been implemented showing 1.1 cm nodule in the right lower lung suspicious for malignancy, patient informed. The patient asked me to talk to her daughter is Jewels at [phone], was trying to tell her about her moth er's situation however the line went off. We will try later. We going to discuss with pulmonary team tomorrow about her plan of care in view of her new finding on the CAT scan of the chest Objective - Vital Signs Vital signs: Vital Signs Temp 97.8 F 03/23/19 12:50 Pulse 87 03/23/19 12:50 Resp 16 03/23/19 12:50 BP 153/74 03/23/19 12:50 Pulse Ox 96 03/23/19 12:50 Intake & Output 03/22/19 03/23/19 03/23/19 18:59 06:59 18:59 Intake Total 300 Balance 300 Weight 49.5 kg Intake: Intake, IV Titration 300 Amount Azithromycin 500 mg In 250 Sodium Chloride 0.9% 250 ml @ 250 mls/hr IVPB DAILY KAMALJIT Rx#:[id number] cefTRIAXone 1 gm In 50 Sodium Chloride 0.9% 50 ml @ 100 mls/hr IVPB Q24HR KAMALJIT Rx#:[id number] Other: Voiding Method Bedside Commode Toilet Bedside Commode # Voids 2 4 - Exam GENERAL: The patient is alert and oriented x3, not in any acute distress. Well developed, well nourished. HEENT: Pupils are round and equally reacting to light. EOMI. No scleral icterus. No conjunctival pallor. Normocephalic, atraumatic. No pharyngeal erythema. No thyromegaly. CARDIOVASCULAR: S1 and S2 present. No murmurs, rubs, or gallops. -PULMONARY: Chest is clear to auscultation, bilateral expiratory wheezing with respiration ABDOMEN: Soft, nontender, nondistended, normoactive bowel sounds. No palpable organomegaly. MUSCULOSKELETAL: No joint swelling or deformity. EXTREMITIES: No cyanosis, clubbing, or pedal edema. NEUROLOGICAL: Gross neurological examination did not reveal any focal deficits. SKIN: No rashes. no petechiae. - Labs CBC & Chem 7: 03/21/19 11:15 03/23/19 06:40 Labs: Abnormal Lab Results - Last 24 Hours (Table) 03/23/19 Range/Units 06:40 Carbon Dioxide 31 H (22-30) mmol/L BUN 29 H (7-17) mg/dL Glucose 113 H (74-99) mg/dL Microbiology - Last 24 Hours (Table) 03/23/19 08:38 Urine Culture - Preliminary Urine,Clean Catch 03/21/19 14:00 Blood Culture - Preliminary Blood No Growth after 24 hours Assessment and Plan Assessment: Acute COPD exacerbation, cannot exclude pneumonia 1.1 cm nodule in the right lower lung suspicious for cancer ex-smoker and nicotine dependance , quit few months ago as per pt Chronic congestive heart failure, unknown ejection fraction Plan: This is a pleasant 83 years old female who presents with acute COPD exacerbation. Continue with steroids, and continue later sent oxygen, antibiotics. Incentive spirometry, Pulmonary consult is appreciated. We'll discuss with pulmonary team about the plan of care and review of her new lung nodule. Patient is informed Labs and medication were reviewed.. Continue same treatment. Continue with symptomatic treatment. Resume home medication. Monitor lytes and vitals. DVT and GI prophylaxis. Further recommendations of the clinical course of the patient DVT prophylaxis: Subcutaneous heparin GI Prophylaxis: Pepcid PT/OT: Pending Prognosis is guarded
[2019-03-24] MEDS: methylPREDNISolone SOD SUCCI 40 MG/ML 1 ML VIAL IV SCH ×2 (00:22→09:20)
[2019-03-24] MEDS: IPRATROPIUM-ALBUTEROL 3 ML NEB INHALATION SCH ×2 (07:56→11:47)
[2019-03-24] MEDS: SYMBICORT 160-4.5 MCG INHALER INHALATION SCH (07:56)
[2019-03-24 08:18] LABS: Calcium 9.5 mg/dL (8.4-10.2); Potassium 4.6 mmol/L (3.5-5.1)
[2019-03-24] MEDS ORDERED: AZITHROMYCIN 500 MG TAB PO SCH (09:00)
[2019-03-24] MEDS: HEPARIN SODIUM,PORCINE 5,000 UNIT/ML 1 ML VIAL SQ SCH (09:20)
[2019-03-24] MEDS: FAMOTIDINE 20 MG TAB PO SCH (09:21)
[2019-03-24 12:08] VITALS: BP 160/81; PULSE 79; RESP 15; TEMP 97.3
--- NOTE | 2019-03-24 12:08 | P.PN ---
Subjective Progress Note Date: 03/24/19 Principal diagnosis: Acute exacerbation of chronic obstructive pulmonary disease with early infiltrate of the right middle lobe. The patient is seen today 03/24/2019 in follow-up on the regular medical floor. She is currently sitting up in a chair at the bedside. Awake and alert in no acute distress. Breathing easier today as compared to yesterday. Maintaining O2 saturations in the upper 90s on 2 L/m per nasal cannula. She's afebrile. Hemodynamically stable. Sputum culture reveals no growth. Blood and urine cultures pending. Sodium 140. Potassium 4.6. Bicarb 31. Creatinine 0.87. She remains on Symbicort, DuoNeb inhalations, IV Solu-Medrol. Empiric Biaxin th e form of ceftriaxone and azithromycin. Computed tomography scan of the chest revealed a slightly spiculated right lower lobe nodule measuring 1.1 cm. There is a right upper lobe posterior pleural thickening with internal calcifications felt to be postinflammatory. Severe emphysematous changes. Objective - Vital Signs Vital signs: Vital Signs Temp 97.9 F 03/24/19 05:00 Pulse 80 03/24/19 11:57 Resp 16 03/24/19 05:00 BP 137/83 03/24/19 05:00 Pulse Ox 97 03/24/19 05:00 Intake & Output 03/23/19 03/24/19 03/24/19 18:59 06:59 18:59 Intake Total 300 210 Balance 300 210 Weight 50 kg Intake: Intake, IV Titration 300 Amount Azithromycin 500 mg In 250 Sodium Chloride 0.9% 250 ml @ 250 mls/hr IVPB DAILY KAMALJIT Rx#:[id number] cefTRIAXone 1 gm In 50 Sodium Chloride 0.9% 50 ml @ 100 mls/hr IVPB Q24HR KAMALJIT Rx#:[id number] Oral 210 Other: Voiding Method Bedside Commode Bedside Commode # Voids 2 - Exam GENERAL EXAM: Alert, very pleasant, 83-year-old female patient, on 2 L of oxygen, comfortable in no apparent distress. HEAD: Normocephalic/atraumatic. EYES: Normal reaction of pupils, equal size. Conjunctiva pink, sclera white. NOSE: Clear with pink turbinates. THROAT: No erythema or exudates. NECK: No masses, no JVD, no thyroid enlargement, no adenopathy. CHEST: No chest wall deformity. Symmetrical expansion. LUNGS: Equal air entry with wheezes, but no rhonchi or dullness. CVS: Regular rate and rhythm, normal S1 and S2, no gallops, no murmurs, no rubs ABDOMEN: Soft, nontender. No hepatosplenomegaly, normal bowel sounds, no guarding or rigidity. EXTREMITIES: No clubbing, no edema, no cyanosis, 2+ pulses and upper and lower extremities. MUSCULOSKELETAL: Muscle strength and tone normal. SPINE: No scoliosis or deformity SKIN: No rashes CENTRAL NERVOUS SYSTEM: No focal deficits, tone is normal in all 4 extremities. PSYCHIATRIC: Alert and oriented -3. Appropriate affect. Intact judgment and insight. - Labs CBC & Chem 7: 03/21/19 11:15 03/24/19 07:26 Labs: Abnormal Lab Results - Last 24 Hours (Table) 03/24/19 Range/Units 07:26 Carbon Dioxide 31 H (22-30) mmol/L BUN 30 H (7-17) mg/dL Glucose 105 H (74-99) mg/dL Microbiology - Last 24 Hours (Table) 03/23/19 20:42 Gram Stain - Final Sputum Sputum Culture - Final 03/21/19 14:00 Blood Culture - Preliminary Blood No Growth after 48 hours 03/23/19 08:38 Urine Culture - Preliminary Urine,Clean Catch Assessment and Plan Assessment: Assessment: #1. Acute exacerbation of chronic obstructive pulmonary disease, and the possibility of early infiltrate versus atelectasis in the right middle lobe. Currently on ceftriaxone and azithromycin. #2. Advanced COPD, baseline FEV1 is unknown, patient is oxygen dependent at 2 L at her baseline #3. Former smoker #4. History of congestive heart failure, with an unknown left ventricular systolic function Plan: The patient was seen and evaluated by Dr. Castellanos. Computed tomography scan reviewed. There is a slightly spiculated right lower lobe nodule measuring 1.1 cm. Severe emphysematous changes noted. Right upper lobe pleural thickening. PET scan is recommended. The patient herself states she would not have any interventions if she did have any type of cancer. She could be discharged home once cleared medically. Complete prednisone burst and taper. Continue Symbicort and DuoNeb inhalations. Continue home oxygen. She is offered an appointment in our office in 1-2 weeks' time. She does state transportation may be an issue. I, the cosigning physician, performed a history & physical examination of the patient. Lungs sounds with faint bilateral end expiratory wheeze, diminished. Maintaining good O2 saturations in the 90s on 2 L/m per nasal cannula. I discussed the assessment and plan of care with my nurse practitioner, Kelly Schumacher. I attest to the above note as dictated by her.
--- NOTE | 2019-03-24 14:07 | CDI ---
Documentation Clarification Form Date: 03/24/2019 12:47:13 PM From: Rebeka Posada RN CCDS Admit Date: 03/23/2019 2:15:00 PM Patient Name: Ashley Abernathy Visit Number: [id number] Discharge Date: ATTENTION: The Clinical Documentation Specialists (CDI) and [facility] Coding Staff appreciate your assistance in clarifying documentation. Please respond to the clarification below the line at the bottom and electronically sign. The CDI & [facility] Coding staff will review the response and follow-up if needed. Please note: Queries are made part of the Legal Health Record. If you have any questions, please contact the author of this message via ITS. Dr. Darin Castellanos Advanced COPD, baseline FEV1 is unknown, patient is oxygen dependent 2L at her baseline. In your Consult dated 03/22/2019 History/Risk Factors: 83 y/o female presents to the ED with a mild dry cough . Medical History Advanced COPD Tobacco use: former Home oxygen: 2L oxygen nasal canula Clinical Indicators: Vital signs: 147/72 85 98.6 18 97%2L Lung/Breathing assessment: Equal air entry with wheezes, but no rhonchi or dullness your consult 03/22/2019 Treatment: Solumedrol ivp Breathing tx Symbicort, Albuterol Ipratropium; Continuous Pulse ox Oxygen 2L nasal canula In your professional opinion, can you please clarify if these findings signify one of the following conditions? * Chronic Respiratory failure with oxygen dependence * Other Diagnosis, please specify * Unable to determine (Last Revision: September 2017) MTDD
--- NOTE | 2019-03-24 19:15 | P.PN ---
Progress Note - Text Progress Note Date: 03/24/19 patient had chronic hypoxic respirory failure and severe copd.this is for documentation clarifications
--- NOTE | 2019-03-24 22:56 | P.DS ---
Providers Date of admission: 03/23/19 14:15 Attending physician: Brad Rodriguez MD Consults: 03/21/19 14:32 Consult Physician Urgent Consulting Provider: Lebron Garcia Consult Reason/Comments: copd Do you want consulting provider notified?: Yes Primary care physician: Jp Caraballo Hospital Course: Diagnoses: Acute COPD exacerbation 1.1 cm nodule in the right lower lung suspicious for cancer chronic resp failure on home oxygen ex-smoker and nicotine dependance , quit few months ago as per pt Chronic congestive heart failure, unknown ejection fraction memory difficulty Hospital course: This is a pleasant 83 years old female with past medical history of COPD and heart failure presents because of dyspnea and mild dry cough of one day duration as per pt, pt is ex-smoker who quit about few months ago, however she denies chest pain , no change in her urine or bowel habits, no fever. She was admitted with acute COPD exacerbation, she was treated with steroids, bronchodilators and antibiotics. Patient has been evaluated by flattening press operator. Patient showed interval improvement and she is back close to her baseline, on the day of discharge she denies chest pain, her dyspnea significantly improved. CAT scan of the chest showing right lower lung pulmonary nodule/mass of 1.1 cm suspicious for malignancy. I talked to the patient and asked me to Dr. daughter Mrs. Donis at [phone] and informed her about these findings of lung mass/nodule, she told me she follow up with her flattening press operator and Fredy Eugene and that they were aware about this mass and she is been followed up regarding this. I instructed the patient and the daughters that patient needs to follow-up with her flattening press operator in 7-10 days and they agree. Also patient has home oxygen about 2 L/m, and she has portable tank as confirmed by the daughter Mrs. Donis Patient was cleared for discharge by pulmonary team Problems and management plan were discussed with the patient and he verbalized understanding and acceptance Patient was found stable and can be discharged home however he needs follow-up as an outpatient. Patient was instructed to follow up with PCP within one week and patient agrees. appointments were made for the pt with her pcp and flattening press operator , i talked to her Daughter Ms. dudley over the phone since pt has memory difficulty and updated her about the appointment made for her and their timing and both pt and her daughter agree with them and state she will follow up . apoorva is aware about risk of cancer although pt showed less interest in treating and testing for cancer but she agrees to follow up this time as recommended for her also i called the office for her PCP and provided my call back number . his response is still pending , family are aware of this Gen: patient is a AAOx3, no distress. Thin built CVS: S1-S2, RRR, no murmur -Lungs: Bilateral chest, B/L CTA, mild bilateral wheezing Abdomen: soft, no distention, no tenderness, positive bowel sounds Extremity: no leg edema or induration Time spent more than 35 minutes Patient Condition at Discharge: Stable Plan - Discharge Summary Discharge Rx Participant: No New Discharge Prescriptions: New Amoxic-Pot Clav 875-125Mg [Augmentin 875-125] 1 tab PO Q12HR 4 Days #8 tablet Famotidine [Pepcid] 20 mg PO Q24HR #60 tab predniSONE 0 mg PO DIRECTED #30 tab Continue Albuterol Inhaler [Ventolin Hfa Inhaler] 2 puff INHALATION Q6HR PRN PRN Reason: Shortness Of Breath Tiotropium 18 Mcg/Puff [Spiriva] 1 puff INHALATION DAILY Aspirin [Adult Low Dose Aspirin EC] 81 mg PO DAILY Discharge Medication List Albuterol Inhaler [Ventolin Hfa Inhaler] 2 puff INHALATION Q6HR PRN 03/21/19 [History] Aspirin [Adult Low Dose Aspirin EC] 81 mg PO DAILY 03/21/19 [History] Tiotropium 18 Mcg/Puff [Spiriva] 1 puff INHALATION DAILY 03/21/19 [History] Amoxic-Pot Clav 875-125Mg [Augmentin 875-125] 1 tab PO Q12HR 4 Days #8 tablet 03/24/19 [Rx] Famotidine [Pepcid] 20 mg PO Q24HR #60 tab 03/24/19 [Rx] predniSONE 0 mg PO DIRECTED #30 tab 03/24/19 [Rx] Follow up Appointment(s)/Referral(s): Darin Castellanos MD [STAFF PHYSICIAN] - 04/13/19 3:15 pm Jp Caraballo DO [Primary Care Provider] - 03/29/19 4:00 pm Patient Instructions/Handouts: Famotidine (By mouth), Prednisone (By mouth), Amoxicillin/Clavulanate Potassium (By mouth), COPD (Chronic Obstructive Pulmonary Disease) (DC), Fall Prevention (DC), Pneumonia (DC) Activity/Diet/Wound Care/Special Instructions: Activity as tolerated. Oxygen at 2 liters Discharge Disposition: HOME SELF-CARE
== END 2019-03-24 16:40 | disposition home or self-care (01) | DRG 191 ==
LOC: EC 10:57 → 3NMEDONC 14:28 → OBSVTOIN 03-23 14:15
PROVIDERS: ADMIT Internal Medicine; ATTEND Internal Medicine
DX: J44.1 Chronic obstructive pulmonary disease with (acute) exacerbation (principal); J96.11 Chronic respiratory failure with hypoxia; Z87.891 Personal history of nicotine dependence; I50.9 Heart failure, unspecified; Z79.82 Long term (current) use of aspirin; Z82.49 Family history of ischemic heart disease and other diseases of the circulatory system; Z87.01 Personal history of pneumonia (recurrent); Z90.710 Acquired absence of both cervix and uterus; Z99.81 Dependence on supplemental oxygen; R91.1 Solitary pulmonary nodule; Z79.899 Other long term (current) drug therapy
CPT/HCPCS: 36415; 71045; 71046; 71260; 80048; 80053; 81003; 83605; 83880; 84145; 84484; 85025; 85610; 85730; 87040; 87070; 87086; 87205; 87502; 93005; 94640; 94760; 96365; 96367; 96375; 96376; 99285

== ENCOUNTER 2019-04-04 19:03 | Emergency (ER) | payer MEDICARE, OTHER ==
[2019-04-04 19:18] VITALS: RESP 18; TEMP 97.5
[2019-04-04] MEDS ORDERED: SODIUM CHLORIDE 0.9% 500 ML 500 ML IV STA (19:47)
[2019-04-04] MEDS ORDERED: KETOROLAC 30 MG/ML 1 ML VIAL IVP STA (19:48)
--- NOTE | 2019-04-04 20:17 | ED ---
General Adult HPI - General Chief complaint: Chest Pain Stated complaint: Flank Pain Time Seen by Provider: 04/04/19 19:08 Source: patient, EMS Mode of arrival: EMS Limitations: no limitations - History of Present Illness Initial comments: 83-year-old female patient presents to the emergency department today for evaluation of bilateral rib pain and tenderness. Patient states she's had symptoms since early this morning. Patient has recently been diagnosed with pneumonia but states her cough is improved. She denies any shortness of breath but states the ribs to her more when she takes a deep breath. Denies any abdominal pain, nausea, or vomiting. Denies any constipation or diarrhea. Denies any fever or chills. Denies any falls or injuries to the ribs. Patient denies any recent rash, fever, chills, abdominal pain, nausea, vomiting, diarrhea, constipation, back pain, numbness, tingling, dizziness, weakness, hematuria, dysuria, urinary urgency, urinary frequency, headache, visual changes, or any other complaints. - Related Data Home Medications Medication Instructions Recorded Confirmed Albuterol Inhaler [Ventolin Hfa 2 puff INHALATION Q6HR PRN 03/21/19 03/21/19 Inhaler] Aspirin [Adult Low Dose Aspirin EC] 81 mg PO DAILY 03/21/19 03/21/19 Tiotropium 18 Mcg/Puff [Spiriva] 1 puff INHALATION DAILY 03/21/19 03/21/19 Previous Rx's Medication Instructions Recorded Amoxic-Pot Clav 875-125Mg 1 tab PO Q12HR 4 Days #8 tablet 03/24/19 [Augmentin 875-125] Famotidine [Pepcid] 20 mg PO Q24HR #60 tab 03/24/19 predniSONE 0 mg PO DIRECTED #30 tab 03/24/19 Ibuprofen [Motrin] 600 mg PO Q8HR PRN #30 tab 04/04/19 Allergies Allergy/AdvReac Type Severity Reaction Status Date / Time No Known Allergies Allergy Verified 04/04/19 19:18 Review of Systems ROS Statement: Those systems with pertinent positive or pertinent negative responses have been documented in the HPI. ROS Other: All systems not noted in ROS Statement are negative. Past Medical History Past Medical History: Heart Failure, COPD Additional Past Medical History / Comment(s): Pneumonia in January 2019 History of Any Multi-Drug Resistant Organisms: None Reported Past Surgical History: Hysterectomy, Tonsillectomy Additional Past Surgical History / Comment(s): cataract surgery x2 Past Anesthesia/Blood Transfusion Reactions: No Reported Reaction Past Psychological History: No Psychological Hx Reported Smoking Status: Former smoker Past Alcohol Use History: None Reported Past Drug Use History: None Reported - Past Family History Mother Additional Family Medical History / Comment(s): Suicide Father Family Medical History: Myocardial Infarction ([place]) General Exam Limitations: no limitations General appearance: alert, in no apparent distress, other (Physical well- developed, well-nourished elderly female patient in no acute distress. Vital signs upon presentation are temperature 97.5F, pulse 93, respirations 18, blood pressure 138/95, pulse ox 97% on room air.) Eye exam: Present: normal appearance, PERRL, EOMI. Absent: scleral icterus, conjunctival injection, periorbital swelling ENT exam: Present: normal exam, normal oropharynx, mucous membranes moist Respiratory exam: Present: normal lung sounds bilaterally, chest wall tenderness (Bilateral chest wall tenderness). Absent: respiratory distress, wheezes, rales, rhonchi, stridor Cardiovascular Exam: Present: regular rate, normal rhythm, normal heart sounds. Absent: systolic murmur, diastolic murmur, rubs, gallop, clicks GI/Abdominal exam: Present: soft, normal bowel sounds. Absent: distended, tenderness, guarding, rebound, rigid Neurological exam: Present: alert, oriented X3, CN II-XII intact Psychiatric exam: Present: normal affect, normal mood Skin exam: Present: warm, dry, intact, normal color. Absent: rash Course Vital Signs 04/04/19 04/04/19 19:12 20:47 Temperature 97.5 F L Pulse Rate 93 80 Respiratory 18 18 Rate Blood Pressure 138/95 159/95 O2 Sat by Pulse 97 98 Oximetry Medical Decision Making - Medical Decision Making 83-year-old female patient presents to the emergency department today for evaluation of bilateral rib pain. Patient states pain started earlier in the day today. Pain worsened with deep breaths, movement, and palpation. Lungs are clear to auscultation with good air movement. Labs reviewed and were unremarkable. Chest x-ray was obtained and showed no acute abnormalities. EKG showed normal sinus rhythm. Patient was given IV pain medication here in the emergency department. Upon reevaluation she is report mild improvement of symptoms. Did discuss all findings and results are just felt comfortable being discharged home at this time to follow-up with her primary care physician. We did discuss his symptoms are consistent with costochondritis. Return parameters were discussed in detail. She verbalizes understanding and agrees with this plan. - Lab Data Result diagrams: 04/04/19 19:50 04/04/19 19:50 Lab Results 04/04/19 04/04/19 04/04/19 Range/Units 19:50 19:50 19:50 WBC 13.6 H (3.8-10.6) k/uL RBC 4.08 (3.80-5.40) m/uL Hgb 11.2 L (11.4-16.0) gm/dL Hct 38.0 (34.0-46.0) % MCV 93.1 (80.0-100.0) fL MCH 27.5 (25.0-35.0) pg MCHC 29.5 L (31.0-37.0) g/dL RDW 14.0 (11.5-15.5) % Plt Count 401 (150-450) k/uL Neutrophils % 88 % Lymphocytes % 6 % Monocytes % 5 % Eosinophils % 0 % Basophils % 0 % Neutrophils # 12.0 H (1.3-7.7) k/uL Lymphocytes # 0.8 L (1.0-4.8) k/uL Monocytes # 0.6 (0-1.0) k/uL Eosinophils # 0.0 (0-0.7) k/uL Basophils # 0.0 (0-0.2) k/uL PT 10.0 (9.0-12.0) sec INR 0.9 (<1.2) APTT 25.6 (22.0-30.0) sec Sodium 137 (137-145) mmol/L Potassium 4.5 (3.5-5.1) mmol/L Chloride 102 (98-107) mmol/L Carbon Dioxide 28 (22-30) mmol/L Anion Gap 7 mmol/L BUN 30 H (7-17) mg/dL Creatinine 1.21 H (0.52-1.04) mg/dL Est GFR (CKD-EPI)AfAm 47 (>60 ml/min/1.73 sqM) Est GFR (CKD-EPI)NonAf 41 (>60 ml/min/1.73 sqM) Glucose 90 (74-99) mg/dL Calcium 9.2 (8.4-10.2) mg/dL Magnesium 2.3 (1.6-2.3) mg/dL Total Bilirubin 0.3 (0.2-1.3) mg/dL AST 21 (14-36) U/L ALT 17 (9-52) U/L Alkaline Phosphatase 69 (38-126) U/L Troponin I (0.000-0.034) ng/mL Total Protein 6.2 L (6.3-8.2) g/dL Albumin 3.5 (3.5-5.0) g/dL Lipase 64 (23-300) U/L 04/04/19 Range/Units 19:50 WBC (3.8-10.6) k/uL RBC (3.80-5.40) m/uL Hgb (11.4-16.0) gm/dL Hct (34.0-46.0) % MCV (80.0-100.0) fL MCH (25.0-35.0) pg MCHC (31.0-37.0) g/dL RDW (11.5-15.5) % Plt Count (150-450) k/uL Neutrophils % % Lymphocytes % % Monocytes % % Eosinophils % % Basophils % % Neutrophils # (1.3-7.7) k/uL Lymphocytes # (1.0-4.8) k/uL Monocytes # (0-1.0) k/uL Eosinophils # (0-0.7) k/uL Basophils # (0-0.2) k/uL PT (9.0-12.0) sec INR (<1.2) APTT (22.0-30.0) sec Sodium (137-145) mmol/L Potassium (3.5-5.1) mmol/L Chloride (98-107) mmol/L Carbon Dioxide (22-30) mmol/L Anion Gap mmol/L BUN (7-17) mg/dL Creatinine (0.52-1.04) mg/dL Est GFR (CKD-EPI)AfAm (>60 ml/min/1.73 sqM) Est GFR (CKD-EPI)NonAf (>60 ml/min/1.73 sqM) Glucose (74-99) mg/dL Calcium (8.4-10.2) mg/dL Magnesium (1.6-2.3) mg/dL Total Bilirubin (0.2-1.3) mg/dL AST (14-36) U/L ALT (9-52) U/L Alkaline Phosphatase (38-126) U/L Troponin I <0.012 (0.000-0.034) ng/mL Total Protein (6.3-8.2) g/dL Albumin (3.5-5.0) g/dL Lipase (23-300) U/L - EKG Data -: EKG Interpreted by Fl EKG Comments: EKG obtained in 1957 shows normal sinus rhythm with a ventricular rate of 85, AK interval 138, QRS duration 74, QT 370, QTC 440. No evidence of ST elevation or depression. - Radiology Data Radiology results: report reviewed, image reviewed Two-view x-ray of the chest is obtained. Report was reviewed in its entirety. Impression by Dr. Leavitt shows stable chest radiograph from 03/23/2019 with chronic changes redemonstrated. No superimposed acute cardio pulmonary process. Disposition Clinical Impression: Rib pain Disposition: HOME SELF-CARE Condition: Good Instructions (If sedation given, give patient instructions): Costochondritis (ED) Additional Instructions: Take medications as directed. Rest. Follow up with your primary care physician for recheck in 1-2 days. Return to the emergency department for new, worsening, or concerning symptoms. Prescriptions: Ibuprofen [Motrin] 600 mg PO Q8HR PRN #30 tab PRN Reason: Pain Is patient prescribed a controlled substance at d/c from ED?: No Referrals: Jp Caraballo DO [Primary Care Provider] - 1-2 days
[2019-04-04 20:18] LABS: Basophils % (A) 0 %; Eosinophils % (A) 0 %; HGB 11.2 gm/dL (11.4-16.0); Lymphocytes # (A) 0.8 k/uL (1.0-4.8); Lymphocytes % (A) 6 %; MCH 27.5 pg (25.0-35.0); MCHC 29.5 g/dL (31.0-37.0); MCV 93.1 fL (80.0-100.0); Monocytes # (A) 0.6 k/uL (0-1.0); Monocytes % (A) 5 %; Neutrophils % (A) 88 %; Platelet Count 401 k/uL (150-450); RBC 4.08 m/uL (3.80-5.40); WBC 13.6 k/uL (3.8-10.6)
[2019-04-04 20:27] LABS: INR 0.9 (<1.2); Partial Thromboplastin Time 25.6 sec (22.0-30.0)
[2019-04-04 20:29] LABS: Albumin 3.5 g/dL (3.5-5.0); Calcium 9.2 mg/dL (8.4-10.2); Magnesium 2.3 mg/dL (1.6-2.3); Potassium 4.5 mmol/L (3.5-5.1); Total Bilirubin 0.3 mg/dL (0.2-1.3); Total Protein 6.2 g/dL (6.3-8.2)
--- NOTE | 2019-04-04 20:45 | XR ---
EXAMINATION TYPE: XR chest 2V DATE OF EXAM: 04/04/2019 COMPARISON: Chest x-ray and CT chest 03/23/2019 HISTORY: Chest pain TECHNIQUE: Frontal and lateral views of the chest are obtained. FINDINGS: Cardiac silhouette is within normal limits of size. Atherosclerotic calcifications of the aorta. Hype rinflated lungs with architectural distortion, notably right upper lobe, and diffuse interstitial pro minence compatible with underlying emphysema. Stable size of right lower lung nodule. No focal airspa ce consolidation. No pleural effusion or pneumothorax. Diffuse osseous demineralization with multiple compression deformities of the thoracic spine; associated exaggerated thoracic kyphosis. IMPRESSION: Stable chest radiograph from 03/23/2019 with chronic changes redemonstrated. No superimposed acute car diopulmonary process.
[2019-04-04 20:53] VITALS: BP 159/95; PULSE 80
[2019-04-04] MEDS ORDERED: IBUPROFEN 600 MG STARTER PACK 4 TAB BTL PO STA (21:26)
[2019-04-04] MEDS ORDERED: ACET/COD 300 MG/30 MG STARTER PACK 6 TAB BTL PO STA (21:26)
== END 2019-04-04 22:10 | disposition home or self-care (01) ==
LOC: EC 19:03
DX: R07.81 Pleurodynia (principal); J44.9 Chronic obstructive pulmonary disease, unspecified; Z87.891 Personal history of nicotine dependence; Z79.82 Long term (current) use of aspirin; Z79.899 Other long term (current) drug therapy; Z82.49 Family history of ischemic heart disease and other diseases of the circulatory system; Z87.01 Personal history of pneumonia (recurrent)
CPT/HCPCS: 36415; 93005; 80053; 83690; 83735; 84484; 85025; 85610; 85730; 71046; 99284; 96374; 96361 ×2; J1885

== ENCOUNTER 2019-04-20 21:46 | Inpatient (IN) | payer MEDICARE, OTHER ==
[2019-04-20] MEDS ORDERED: methylPREDNISolone SOD SUCCI 125 MG/2 ML VIAL IV STA (22:01)
[2019-04-20 22:23] LABS: Basophils # (A) 0.1 k/uL (0-0.2); Basophils % (A) 1 %; Eosinophils # (A) 0.2 k/uL (0-0.7); Eosinophils % (A) 3 %; HCT 35.5 % (34.0-46.0); HGB 11.6 gm/dL (11.4-16.0); Lymphocytes # (A) 1.2 k/uL (1.0-4.8); Lymphocytes % (A) 15 %; MCH 29.5 pg (25.0-35.0); MCHC 32.6 g/dL (31.0-37.0); MCV 90.6 fL (80.0-100.0); Monocytes # (A) 0.5 k/uL (0-1.0); Monocytes % (A) 6 %; Neutrophils % (A) 74 %; Platelet Count 370 k/uL (150-450); RBC 3.92 m/uL (3.80-5.40); RDW 13.8 % (11.5-15.5); WBC 8.2 k/uL (3.8-10.6)
[2019-04-20 22:37] LABS: Albumin 3.7 g/dL (3.5-5.0); Calcium 9.5 mg/dL (8.4-10.2); Potassium 4.3 mmol/L (3.5-5.1); Total Bilirubin 0.2 mg/dL (0.2-1.3); Total Protein 6.4 g/dL (6.3-8.2)
--- NOTE | 2019-04-20 22:38 | XR ---
EXAMINATION TYPE: XR chest 2V DATE OF EXAM: 04/20/2019 COMPARISON: NONE HISTORY: Difficulty in breathing. TECHNIQUE: Frontal and lateral views of the chest are obtained. FINDINGS: There is chronic emphysematous change with scattered parenchymal scarring. Nonspecific sca rlike opacities right upper lung noted. The cardiac silhouette size is mildly enlarged. The osseous structures are demineralized. Exaggerated thoracic kyphosis with several mild compression type fract ure deformities presumed chronic. Ectatic and atherosclerotic aorta is noted. Mass effect on trachea is present. IMPRESSION: As above. Chronic emphysematous and parenchymal changes along with mild cardiomegaly. Sc arlike opacities right upper lung could reflect acute infiltrate, more prominent focal parenchymal sc arring, and/or spiculated nodule. Correlate clinically. Correlation with old outside x-ray and/or CT would be beneficial to help determine.
[2019-04-20] MEDS ORDERED: IPRATROPIUM-ALBUTEROL 3 ML NEB INHALATION STA (22:42)
[2019-04-20 22:43] LABS: INR 0.9 (<1.2); Partial Thromboplastin Time 24.8 sec (22.0-30.0); Prothrombin Time 9.9 sec (9.0-12.0)
--- NOTE | 2019-04-20 23:12 | ED ---
SOB HPI - General Chief Complaint: Shortness of Breath Stated Complaint: low pulse ox Time Seen by Provider: 04/20/19 21:50 Source: patient, EMS Mode of arrival: EMS Limitations: no limitations - History of Present Illness Initial Comments: Tanya is an 83yo female with PMH of oxygen dependent end stage COPD, she presents to the ED today via EMS for evaluation of of confusion and shortness of breath. Patient reports she was feeling she had some wheezing and was short of breath, her daughter reports that she seems somewhat confused which happens when her oxygen gets low, they checked her oxygen at home and despite wearing her 2 L nasal cannula her oxygen saturation at rest was only 88%. Patient used her rescue inhaler and had a DuoNeb, she continued to wheeze at which time EMS was contacted, patient was given additional breathing treatment in route to the hospital and reported feeling much better upon arrival. Patient denies any chest pain or palpitation she denies any recent fevers chills nausea or vomiting. Daughter reports she was in her usual state of health when she left for work this morning. - Related Data Home Medications Medication Instructions Recorded Confirmed Albuterol Nebulized [Ventolin 2.5 mg INHALATION RT-TID PRN 04/20/19 04/20/19 Nebulized] Aspirin [[place] Aspirin EC] 81 mg PO DAILY 04/20/19 04/20/19 Famotidine [Pepcid] 20 mg PO DAILY 04/20/19 04/20/19 Tiotropium [place] [Spiriva] 1 cap INHALATION RT-DAILY 04/20/19 04/20/19 Allergies Allergy/AdvReac Type Severity Reaction Status Date / Time No Known Allergies Allergy Verified 04/20/19 22:13 Review of Systems ROS Statement: Those systems with pertinent positive or pertinent negative responses have been documented in the HPI. ROS Other: All systems not noted in ROS Statement are negative. Past Medical History Additional Past Medical History / Comment(s): copd History of Any Multi-Drug Resistant Organisms: None Reported Past Surgical History: Hysterectomy, Tonsillectomy Past Psychological History: No Psychological Hx Reported Smoking Status: Former smoker Past Alcohol Use History: None Reported Past Drug Use History: None Reported General Exam - General Exam Comments Initial Comments: Physical Exam GENERAL: Patient is well-developed and well-nourished. Patient is nontoxic and well- hydrated and is in no distress. HENT: Normocephalic, Atraumatic. EYES: PERRL, EOMI PULMONARY: Wheezing in all lung garcia CARDIOVASCULAR: There is a regular rate and rhythm without any murmurs gallops or rubs. ABDOMEN: Soft and nontender with normal bowel sounds. SKIN: Skin is clear with no lesions or rashes and otherwise unremarkable. Dry : Deferred NEUROLOGIC: Patient is alert and oriented x3. Moving all extremities spontaneously MUSCULOSKELETAL: Normal extremities with adequate strength and full range of motion. No lower e xtremity swelling or edema. No calf tenderness. PSYCHIATRIC: Normal psychiatric evaluation. Limitations: no limitations Course Vital Signs 04/20/19 04/20/19 04/20/19 21:48 22:50 22:52 Temperature 97.9 F Pulse Rate 93 94 Respiratory 18 18 20 Rate Blood Pressure 154/103 152/103 O2 Sat by Pulse 94 L 93 L Oximetry 04/20/19 04/20/19 04/21/19 23:16 23:30 00:18 Temperature Pulse Rate 92 96 Respiratory 112 H Rate Blood Pressure 145/112 O2 Sat by Pulse 90 L Oximetry 04/21/19 04/21/19 00:46 01:18 Temperature Pulse Rate 110 H 109 H Respiratory 18 18 Rate Blood Pressure 148/96 144/83 O2 Sat by Pulse 92 L 93 L Oximetry Medical Decision Making - Medical Decision Making Patient was seen and evaluated upon arrival to the emergency department, this is an 83-year-old female with oxygen-dependent COPD presenting with worsening shortness of breath and hypoxia Labs and imaging were ordered Labs are within normal limits, chest x-ray with no signs of pneumonia however patient continues to have wheezing. Patient was given breathing treatments and Solu-Medrol, wheezing improved however patient continues to have oxygen saturations of 88% on 2 L nasal cannula, oxygen increased to 3 L we'll plan to admit the patient for COPD exacerbation. Patient care was discussed with Dr. England who agrees with plan for admission for COPD exacerbation. - Lab Data Result diagrams: 04/20/19 22:14 04/20/19 22:14 Lab Results 04/20/19 04/20/19 04/20/19 Range/Units 22:14 22:14 22:14 WBC 8.2 (3.8-10.6) k/uL RBC 3.92 (3.80-5.40) m/uL Hgb 11.6 (11.4-16.0) gm/dL Hct 35.5 (34.0-46.0) % MCV 90.6 (80.0-100.0) fL MCH 29.5 (25.0-35.0) pg MCHC 32.6 (31.0-37.0) g/dL RDW 13.8 (11.5-15.5) % Plt Count 370 (150-450) k/uL Neutrophils % 74 % Lymphocytes % 15 % Monocytes % 6 % Eosinophils % 3 % Basophils % 1 % Neutrophils # 6.0 (1.3-7.7) k/uL Lymphocytes # 1.2 (1.0-4.8) k/uL Monocytes # 0.5 (0-1.0) k/uL Eosinophils # 0.2 (0-0.7) k/uL Basophils # 0.1 (0-0.2) k/uL PT (9.0-12.0) sec INR (<1.2) APTT (22.0-30.0) sec Sodium 140 (137-145) mmol/L Potassium 4.3 (3.5-5.1) mmol/L Chloride 105 (98-107) mmol/L Carbon Dioxide 30 (22-30) mmol/L Anion Gap 5 mmol/L BUN 27 H (7-17) mg/dL Creatinine 0.92 (0.52-1.04) mg/dL Est GFR (CKD-EPI)AfAm 66 (>60 ml/min/1.73 sqM) Est GFR (CKD-EPI)NonAf 57 (>60 ml/min/1.73 sqM) Glucose 100 H (74-99) mg/dL Calcium 9.5 (8.4-10.2) mg/dL Total Bilirubin 0.2 (0.2-1.3) mg/dL AST 26 (14-36) U/L ALT 19 (9-52) U/L Alkaline Phosphatase 96 (38-126) U/L Troponin I (0.000-0.034) ng/mL NT-Pro-B Natriuret Pep 246 pg/mL Total Protein 6.4 (6.3-8.2) g/dL Albumin 3.7 (3.5-5.0) g/dL 10/29/19 10/29/19 Range/Units 22:14 22:14 WBC (3.8-10.6) k/uL RBC (3.80-5.40) m/uL Hgb (11.4-16.0) gm/dL Hct (34.0-46.0) % MCV (80.0-100.0) fL MCH (25.0-35.0) pg MCHC (31.0-37.0) g/dL RDW (11.5-15.5) % Plt Count (150-450) k/uL Neutrophils % % Lymphocytes % % Monocytes % % Eosinophils % % Basophils % % Neutrophils # (1.3-7.7) k/uL Lymphocytes # (1.0-4.8) k/uL Monocytes # (0-1.0) k/uL Eosinophils # (0-0.7) k/uL Basophils # (0-0.2) k/uL PT 9.9 (9.0-12.0) sec INR 0.9 (<1.2) APTT 24.8 (22.0-30.0) sec Sodium (137-145) mmol/L Potassium (3.5-5.1) mmol/L Chloride (98-107) mmol/L Carbon Dioxide (22-30) mmol/L Anion Gap mmol/L BUN (7-17) mg/dL Creatinine (0.52-1.04) mg/dL Est GFR (CKD-EPI)AfAm (>60 ml/min/1.73 sqM) Est GFR (CKD-EPI)NonAf (>60 ml/min/1.73 sqM) Glucose (74-99) mg/dL Calcium (8.4-10.2) mg/dL Total Bilirubin (0.2-1.3) mg/dL AST (14-36) U/L ALT (9-52) U/L Alkaline Phosphatase (38-126) U/L Troponin I <0.012 (0.000-0.034) ng/mL NT-Pro-B Natriuret Pep pg/mL Total Protein (6.3-8.2) g/dL Albumin (3.5-5.0) g/dL - EKG Data -: EKG Interpreted by Co EKG shows normal: sinus rhythm Rate: normal EKG Comments: EKG was obtained due to complaint of shortness breath, EKG obtained at 20-22, rate is 92 rhythm sinuses normal axis are normal intervals, ND 140, care 72, QTc 455 there is no acute ST elevations or depressions no evidence of acute ischemia or infarction. Critical Care Time Critical Care Time: Yes Total Critical Care Time: 30 Critical Care Time: Critical Care Time Critical care time was exclusive of separately billable procedures and treating other patients and teaching time. Critical care was necessary to treat or prevent imminent or life-threatening de terioration. Given the critical condition in which the patient arrived, the patient was immediately assessed by myself and the nurse, and cardiac monitoring initiated due to the potential for rapid decompensation of the patient's clinical condition. During the course of the patients stay, I spent a considerable amount of time at the bedside performing serial re-evaluations of the patient's hemody namic and clinical status because of the recognized potential threat to life or limb in this condition. I then had a chance to review not only all of the available current laboratory and radiographic studies obtained today, but I also reviewed old records available to me at the time. Additionally, any ancillary information available including ceiling insulation blower records were reviewed. Sequential vital signs were obtained. Disposition Clinical Impression: COPD exacerbation, Hypoxia Disposition: ADMITTED IP TO THIS HOSP Condition: Serious Referrals: None,Stated [REFERRING] - 1-2 days
[2019-04-21] MEDS ORDERED: ENALAPRILAT 1.25 MG/ML 1 ML VIAL IVP STA (00:20)
[2019-04-21] MEDS: IPRATROPIUM-ALBUTEROL 3 ML NEB INHALATION PRN ×2 (08:20→11:36)
[2019-04-21] MEDS ORDERED: predniSONE 20 MG TAB PO SCH (09:00)
[2019-04-21] MEDS: IPRATROPIUM 0.5 MG/2.5 ML NEBU INHALATION SCH ×2 (15:24→21:14)
[2019-04-21] MEDS: AMOXIC-POT CLAV 875-125MG 1 EACH TAB PO SCH ×2 (15:27→20:59)
[2019-04-21] MEDS: methylPREDNISolone SOD SUCCI 40 MG/ML 1 ML VIAL IV SCH ×3 (15:27→23:52)
[2019-04-21] MEDS: FAMOTIDINE 20 MG TAB PO SCH (15:27)
[2019-04-21] MEDS: ASPIRIN 81 MG PO SCH (15:28)
--- NOTE | 2019-04-21 20:37 | HP ---
HISTORY AND PHYSICAL CHIEF COMPLAINT: Difficulty breathing. HISTORY OF PRESENT ILLNESS: This is another admission to this hospital for this 83-year-old white female who has oxygen-dependent end-stage COPD who came to the emergency room extremely short of breath and was admitted. REVIEW OF SYSTEMS: She has had no chest pain, hemoptysis, neurologic problems, abdominal pain, vomiting, etc. Past medical history, family history and personal and social histories reveal that she is not allergic to any medication. She is on albuterol, aspirin and Pepcid. PHYSICAL EXAMINATION: Blood pressure is 154/103 with a pulse of 93, respirations of 38 and she is afebrile. In general, she appeared to be asthenic, poorly nourished and extremely short of breath. She states that she has quit smoking. The physical exam otherwise reveals chest to have very poor breath sounds with scattered rales and rhonchi. Cardiac exam demonstrates tachycardia. Abdomen is soft and nontender and flat. Extremities: Normal. IMPRESSION: Exacerbation of chronic obstructive pulmonary disease. PLAN: 1. Bed rest. 2. IV fluids. 3. Nasal oxygen. 4. Updrafts. 5. IV and inhaled steroids. MMODL / IJN: [id number] /
[2019-04-21] MEDS: BUDESONIDE 0.5 MG/2 ML NEBU INHALATION SCH (21:13)
[2019-04-22] MEDS: IPRATROPIUM 0.5 MG/2.5 ML NEBU INHALATION SCH ×4 (08:30→19:48)
[2019-04-22] MEDS: BUDESONIDE 0.5 MG/2 ML NEBU INHALATION SCH ×2 (08:30→19:29)
[2019-04-22] MEDS: methylPREDNISolone SOD SUCCI 40 MG/ML 1 ML VIAL IV SCH ×2 (09:53→19:12)
[2019-04-22] MEDS: AMOXIC-POT CLAV 875-125MG 1 EACH TAB PO SCH ×2 (09:55→21:17)
[2019-04-22] MEDS: ASPIRIN 81 MG PO SCH (09:55)
[2019-04-22] MEDS: FAMOTIDINE 20 MG TAB PO SCH (09:55)
[2019-04-22] MEDS: IPRATROPIUM-ALBUTEROL 3 ML NEB INHALATION PRN ×2 (11:32→19:29)
--- NOTE | 2019-04-22 14:50 | CDI ---
Documentation Clarification Form Date: 04/22/2019 2:36:19 PM From: Rebeka Posada RN CCDS Admit Date: 04/21/2019 1:28:00 AM Patient Name: Ashley Abernathy Visit Number: [id number] Discharge Date: ATTENTION: The Clinical Documentation Specialists (CDI) and [facility] Coding Staff appreciate your assistance in clarifying documentation. Please respond to the clarification below the line at the bottom and electronically sign. The CDI & [facility] Coding staff will review the response and follow-up if needed. Please note: Queries are made part of the Legal Health Record. If you have any questions, please contact the author of this message via ITS. Dr. Balaji England The patient presented to the ED via EMS for confusion and shortness of breath. History/Risk Factors: 83-year-old female with a history of end stage COPD, and home oxygen. Tobacco use: former Home oxygen: oxygen dependent 2L Clinical Indicators: Per the ED Note they checked her oxygen at home and despite wearing 2L nasal cannula her oxygen saturation at rest was only 88% CXR 04/20/2019 chronic emphysematous and parenchymal changes along with mild cardiomegaly. Vital signs: 154/103 93 97.9 18 94% 2L Lung/Breathing assessment: ED 04/20/2019 wheezing in all lung garcia Treatment: Breathing tx DuoNeb Prn; Atrovent nebulized Qid; Pulmicort Bid; Solumedrol iv q 8 hrs Oxygen 2L In your professional opinion, can you please clarify if these findings signify one of the following conditions? * Chronic Respiratory Failure * Other Diagnosis, please specify * Unable to determine Specificity: If known, further specify (if known): With hypercapnia? (pCO2 >50 and pH <7.35) With hypoxia? (pO2 <60 mm Hg or SpO2 <91% on room air) (Last Query Form Revision: February 2019) MTDD
--- NOTE | 2019-04-22 20:39 | PN ---
PROGRESS NOTE CHIEF COMPLAINT: COPD. HISTORY OF PRESENT ILLNESS: This lady is doing a little bit better. She has had no fever, chills, chest pain etc. PHYSICAL EXAMINATION: Breath sounds are extremely poor. There are scattered rales. Cardiac exam is normal. Abdomen is soft, nontender. IMPRESSION: Exacerbation of chronic obstructive pulmonary disease. PLAN: 1. Continue with current program. 2. She wants to be DNR, and this will be entered. MMODL / IJN: [id number] /
[2019-04-23] MEDS: methylPREDNISolone SOD SUCCI 40 MG/ML 1 ML VIAL IV SCH ×3 (02:24→17:07)
[2019-04-23] MEDS: IPRATROPIUM 0.5 MG/2.5 ML NEBU INHALATION SCH ×4 (08:05→21:02)
[2019-04-23] MEDS: BUDESONIDE 0.5 MG/2 ML NEBU INHALATION SCH ×2 (08:05→21:02)
[2019-04-23] MEDS: ASPIRIN 81 MG PO SCH (09:44)
[2019-04-23] MEDS: AMOXIC-POT CLAV 875-125MG 1 EACH TAB PO SCH ×2 (09:44→20:29)
[2019-04-23] MEDS: FAMOTIDINE 20 MG TAB PO SCH (09:44)
[2019-04-23 12:08] LABS: Basophils % (A) 0 %; Eosinophils % (A) 0 %; HCT 37.4 % (34.0-46.0); HGB 11.7 gm/dL (11.4-16.0); Lymphocytes # (A) 0.6 k/uL (1.0-4.8); Lymphocytes % (A) 5 %; MCH 28.8 pg (25.0-35.0); MCHC 31.3 g/dL (31.0-37.0); Mean Platelet Volume 6.1; Monocytes # (A) 0.3 k/uL (0-1.0); Monocytes % (A) 3 %; Neutrophils # (A) 10.5 k/uL (1.3-7.7); Neutrophils % (A) 91 %; Platelet Count 448 k/uL (150-450); RBC 4.07 m/uL (3.80-5.40); RDW 13.7 % (11.5-15.5); WBC 11.5 k/uL (3.8-10.6)
[2019-04-23 12:24] LABS: Albumin 3.8 g/dL (3.5-5.0); Calcium 9.6 mg/dL (8.4-10.2); Potassium 4.4 mmol/L (3.5-5.1); Total Bilirubin 0.3 mg/dL (0.2-1.3); Total Protein 6.4 g/dL (6.3-8.2)
--- NOTE | 2019-04-23 13:15 | XR ---
EXAMINATION TYPE: XR chest 2V DATE OF EXAM: 04/23/2019 COMPARISON: 04/20/2019 TECHNIQUE: PA and lateral views submitted. HISTORY: Soreness of breath FINDINGS: Hyperinflation suggests COPD. There is degenerative change of the spine and numerous compression defo rmities. Irregular density in the right upper lobe persists. Heart size normal. Diffuse osteopenia. N o overt failure. Blunting the costophrenic angles may represent tiny pleural effusions or pleural thi ckening. IMPRESSION: 1. No acute process. Stable right upper lobe irregular mass. Underlying COPD noted. 2. There are multiple compression deformities in the vertebral column.
--- NOTE | 2019-04-23 15:29 | MISC ---
MISCELLANOUS REPORT Diagnosis: Exacerbation of COPD. MMODL / IJN: [id number] /
--- NOTE | 2019-04-23 20:14 | PN ---
PROGRESS NOTE CHIEF COMPLAINT: Exacerbation of COPD. HISTORY OF PRESENT ILLNESS: This lady is doing a little bit better. She has had no fever or chills. PHYSICAL EXAMINATION: She still has very poor breath sounds with rales and rhonchi throughout. There is expiratory wheezing. The cardiac exam demonstrates tachycardia. IMPRESSION: Exacerbation of chronic obstructive pulmonary disease. PLAN: Increase activity, but she is probably not ready to go home today. MMODL / IJN: [id number] /
[2019-04-24] MEDS: methylPREDNISolone SOD SUCCI 40 MG/ML 1 ML VIAL IV SCH ×2 (01:05→09:59)
[2019-04-24] MEDS: IPRATROPIUM 0.5 MG/2.5 ML NEBU INHALATION SCH (08:13)
[2019-04-24] MEDS: AMOXIC-POT CLAV 875-125MG 1 EACH TAB PO SCH (08:14)
[2019-04-24] MEDS: FAMOTIDINE 20 MG TAB PO SCH (08:14)
[2019-04-24] MEDS: ASPIRIN 81 MG PO SCH (08:14)
[2019-04-24] MEDS: BUDESONIDE 0.5 MG/2 ML NEBU INHALATION SCH (08:14)
[2019-04-24 08:31] VITALS: BP 133/77; RESP 16; TEMP 97.8
[2019-04-24 08:36] VITALS: PULSE 100
--- NOTE | 2019-04-24 22:48 | DS ---
DISCHARGE SUMMARY CHIEF COMPLAINT: Difficulty breathing. HISTORY OF PRESENT ILLNESS AND PHYSICAL EXAMINATION: Details of this lady's history and physical can be found in the initial workup. LABORATORY STUDIES: While she was in the hospital she had laboratory studies, details of which can be found in the laboratory section of her chart. COURSE IN HOSPITAL: After admission, she was placed on bedrest, started on intravenous fluids, updrafts and nasal O2. She was given inhalation treatments and gradually improved and did well. She was anxious to be discharged. It was felt she should go home on the . She will be discharged on her usual program of medications, updrafts, and she will be given a prescription for Medrol Dosepak. She will be requested to come into the office in several days for followup. FINAL DIAGNOSES: Exacerbation of chronic obstructive pulmonary disease. OPERATIONS: None. CONSULTATION: None. She is improved. NUPUR / VIN: [id number] /
[2019-04-25] MEDS ORDERED: methylPREDNISolone 4 MG TAB TAPER PO SCH (09:00)
== END 2019-04-24 11:09 | disposition home health service (06) | DRG 192 ==
LOC: EDBD → EC 21:46 → MERGE 04-21 01:28 → 4SSUR 04-21 01:28
PROVIDERS: ADMIT Family Medicine; ATTEND Family Medicine
DX: J44.1 Chronic obstructive pulmonary disease with (acute) exacerbation (principal); R09.02 Hypoxemia; Z79.82 Long term (current) use of aspirin; Z87.891 Personal history of nicotine dependence; Z90.710 Acquired absence of both cervix and uterus; Z99.81 Dependence on supplemental oxygen; Z90.89 Acquired absence of other organs
CPT/HCPCS: 36415; 71046; 80053; 83880; 84484; 85025; 85610; 85730; 93005; 94640; 96374; 96375; 99291

== ENCOUNTER 2019-06-11 16:16 | Emergency (ER) | payer MEDICARE, OTHER ==
[2019-06-11 16:26] VITALS: BP 163/73; TEMP 98.4
[2019-06-11] MEDS ORDERED: KETOROLAC 30 MG/ML 1 ML VIAL IVP STA (16:38)
--- NOTE | 2019-06-11 16:51 | ED ---
General Adult HPI - General Chief complaint: Extremity Injury, Lower Stated complaint: Lt groin pain Time Seen by Provider: 06/11/19 16:28 Source: patient, family, RN notes reviewed Mode of arrival: wheelchair Limitations: no limitations - History of Present Illness Initial comments: This is a 83-year-old female who presents from her doctor's office with complaints of left hip pain going on for about the last week. No known trauma pain is mostly sharp severe with movement 4-5/10 in severity at this time it does seem to radiate around the groin region. She denies any dysuria hematuria fevers chills nausea vomiting sweats loss of function to her lower extremities. - Related Data Home Medications Medication Instructions Recorded Confirmed Albuterol Inhaler [Ventolin Hfa 2 puff INHALATION Q6HR PRN 03/21/19 03/21/19 Inhaler] Aspirin [Adult Low Dose Aspirin EC] 81 mg PO DAILY 03/21/19 03/21/19 Tiotropium 18 Mcg/Puff [Spiriva] 1 puff INHALATION DAILY 03/21/19 03/21/19 Albuterol Nebulized [Ventolin 2.5 mg INHALATION RT-TID PRN 04/20/19 04/20/19 Nebulized] Famotidine [Pepcid] 20 mg PO DAILY 04/20/19 04/20/19 Previous Rx's Medication Instructions Recorded Amoxic-Pot Clav 875-125Mg 1 tab PO Q12HR 4 Days #8 tablet 03/24/19 [Augmentin 875-125] Ibuprofen [Motrin] 600 mg PO Q8HR PRN #30 tab 04/04/19 Budesonide [Pulmicort] 0.5 mg INHALATION RT-BID #60 nebu 04/24/19 methylPREDNISolone Dose Pack 24 mg PO DAILY #1 dosepack 04/24/19 [Medrol Dose Pack] predniSONE 20 mg PO BID #10 tab 06/11/19 Allergies Allergy/AdvReac Type Severity Reaction Status Date / Time No Known Allergies Allergy Verified 06/11/19 16:26 Review of Systems ROS Statement: Those systems with pertinent positive or pertinent negative responses have been documented in the HPI. ROS Other: All systems not noted in ROS Statement are negative. Past Medical History Past Medical History: Heart Failure, COPD, Pneumonia Additional Past Medical History / Comment(s): COPD, costochondritis, wears home oxygen 2L History of Any Multi-Drug Resistant Organisms: None Reported Past Surgical History: Bladder Surgery, Hysterectomy, Tonsillectomy Additional Past Surgical History / Comment(s): cataract surgery x2 Past Anesthesia/Blood Transfusion Reactions: No Reported Reaction, Unable to Obtain Additional Past Anesthesia/Blood Transfusion Reaction / Comment(s): has no had a blood transfusions Past Psychological History: No Psychological Hx Reported Smoking Status: Former smoker Past Alcohol Use History: None Reported Past Drug Use History: None Reported - Past Family History Father Family Medical History: Myocardial Infarction ([place]) General Exam - General Exam Comments Initial Comments: This is a well-developed asthenic appearing female who is awake alert oriented 3 Limitations: no limitations General appearance: alert Head exam: Present: atraumatic, normocephalic, normal inspection Eye exam: Present: normal appearance, PERRL, EOMI. Absent: scleral icterus, conjunctival injection, periorbital swelling ENT exam: Present: normal exam, mucous membranes moist Neck exam: Present: normal inspection. Absent: tenderness, meningismus, lymphadenopathy Respiratory exam: Present: normal lung sounds bilaterally, other (Kyphosis is demonstrated). Absent: respiratory distress, wheezes, rales, rhonchi, stridor Cardiovascular Exam: Present: regular rate, normal rhythm, normal heart sounds. Absent: systolic murmur, diastolic murmur, rubs, gallop, clicks GI/Abdominal exam: Present: soft, normal bowel sounds. Absent: distended, ten derness, guarding, rebound, rigid Rectal exam: Present: deferred Extremities exam: Present: normal inspection, tenderness, normal capillary refill, other (Noted range of motion similar to pain there is tenderness palpation of the left gluteus no step-off or crepitation no calf tenderness). Absent: pedal edema, joint swelling, calf tenderness Back exam: Present: normal inspection, other (Tenderness of the left SI joint re gion no step-off or crepitation) Neurological exam: Present: alert, oriented X3, CN II-XII intact Psychiatric exam: Present: normal affect, normal mood Skin exam: Present: warm, dry, intact, normal color. Absent: rash Course Vital Signs 06/11/19 06/11/19 16:23 18:50 Temperature 98.4 F Pulse Rate 92 88 Respiratory 22 24 Rate Blood Pressure 163/73 O2 Sat by Pulse 94 L 96 Oximetry Medical Decision Making - Medical Decision Making Initial reevaluation patient reveals some improvement in her pain after IV Toradol. The patient presentation is consistent with sciatica she'll be placed on a short course of oral steroids along with the medication ER he has a home. He is follow-up with her doctor and return when necessary - Lab Data Result diagrams: 06/11/19 16:50 06/11/19 16:50 Lab Results 06/11/19 06/11/19 06/11/19 Range/Units 16:50 16:50 17:15 WBC 12.1 H (3.8-10.6) k/uL RBC 3.96 (3.80-5.40) m/uL Hgb 12.0 (11.4-16.0) gm/dL Hct 36.4 (34.0-46.0) % MCV 91.9 (80.0-100.0) fL MCH 30.2 (25.0-35.0) pg MCHC 32.8 (31.0-37.0) g/dL RDW 13.5 (11.5-15.5) % Plt Count 454 H (150-450) k/uL Neutrophils % 84 % Lymphocytes % 6 % Monocytes % 5 % Eosinophils % 2 % Basophils % 2 % Neutrophils # 10.2 H (1.3-7.7) k/uL Lymphocytes # 0.7 L (1.0-4.8) k/uL Monocytes # 0.6 (0-1.0) k/uL Eosinophils # 0.3 (0-0.7) k/uL Basophils # 0.2 (0-0.2) k/uL Sodium 140 (137-145) mmol/L Potassium 4.8 (3.5-5.1) mmol/L Chloride 104 (98-107) mmol/L Carbon Dioxide 30 (22-30) mmol/L Anion Gap 6 mmol/L BUN 23 H (7-17) mg/dL Creatinine 0.85 (0.52-1.04) mg/dL Est GFR (CKD-EPI)AfAm 73 (>60 ml/min/1.73 sqM) Est GFR (CKD-EPI)NonAf 63 (>60 ml/min/1.73 sqM) Glucose 97 (74-99) mg/dL Calcium 9.9 (8.4-10.2) mg/dL Magnesium 2.0 (1.6-2.3) mg/dL Total Bilirubin 0.4 (0.2-1.3) mg/dL AST 30 (14-36) U/L ALT 13 (4-34) U/L Alkaline Phosphatase 102 (38-126) U/L Creatine Kinase 119 (30-135) U/L Total Protein 6.7 (6.3-8.2) g/dL Albumin 3.9 (3.5-5.0) g/dL Urine Color Yellow Urine Appearance Clear (Clear) Urine pH 5.5 (5.0-8.0) Ur Specific [place] 1.015 (1.001-1.035) Urine Protein Negative (Negative) Urine Glucose (UA) Negative (Negative) Urine Ketones Negative (Negative) Urine Blood Negative (Negative) Urine Nitrite Negative (Negative) Urine Bilirubin Negative (Negative) Urine Urobilinogen <2.0 (<2.0) mg/dL Ur Leukocyte Esterase Negative (Negative) - Radiology Data Radiology results: report reviewed (I did review all the imaging and reports no evidence of acute fractures or subluxations marked degenerative changes in arthritic changes.), image reviewed Disposition Clinical Impression: Left sided sciatica Disposition: HOME SELF-CARE Condition: Good Instructions (If sedation given, give patient instructions): Sciatica (ED) Additional Instructions: Prescriptions sent to your preferred [facility] pharmacy Prescriptions: predniSONE 20 mg PO BID #10 tab Is patient prescribed a controlled substance at d/c from ED?: No Referrals: Zachery Parra DO [Primary Care Provider] - 1-2 days
[2019-06-11 17:13] LABS: Basophils # (A) 0.2 k/uL (0-0.2); Basophils % (A) 2 %; Eosinophils # (A) 0.3 k/uL (0-0.7); Eosinophils % (A) 2 %; HCT 36.4 % (34.0-46.0); Lymphocytes # (A) 0.7 k/uL (1.0-4.8); Lymphocytes % (A) 6 %; MCH 30.2 pg (25.0-35.0); MCHC 32.8 g/dL (31.0-37.0); MCV 91.9 fL (80.0-100.0); Mean Platelet Volume 7.4; Monocytes # (A) 0.6 k/uL (0-1.0); Monocytes % (A) 5 %; Neutrophils # (A) 10.2 k/uL (1.3-7.7); Neutrophils % (A) 84 %; Platelet Count 454 k/uL (150-450); RBC 3.96 m/uL (3.80-5.40); RDW 13.5 % (11.5-15.5); WBC 12.1 k/uL (3.8-10.6)
[2019-06-11 17:23] LABS: Appearance,Urine Clear (Clear); Bilirubin,Urine Negative (Negative); Blood,Urine Negative (Negative); Color,Urine Yellow; Glucose,Urine (UA) Negative (Negative); Ketones,Urine Negative (Negative); Leukocyte Esterase,Urine Negative (Negative); Nitrite,Urine Negative (Negative); PH, Urine 5.5 (5.0-8.0); Protein,Urine Negative (Negative); Specific Gravity,Urine 1.015 (1.001-1.035); Urobilinogen,Urine <2.0 mg/dL (<2.0)
[2019-06-11 17:32] LABS: Albumin 3.9 g/dL (3.5-5.0); Calcium 9.9 mg/dL (8.4-10.2); Potassium 4.8 mmol/L (3.5-5.1); Total Bilirubin 0.4 mg/dL (0.2-1.3); Total Protein 6.7 g/dL (6.3-8.2)
--- NOTE | 2019-06-11 17:58 | XR ---
EXAMINATION TYPE: XR lumbosacral spine min 4V DATE OF EXAM: 06/11/2019 COMPARISON: NONE HISTORY: Pain TECHNIQUE: 5 views FINDINGS: There is osteopenia. There is biconcave deformity of multiple lumbar vertebra with up to 50 % loss of height. There is a mild thoracolumbar dextroscoliosis. Sacroiliac joints appear intact. IMPRESSION: Evidence of osteoporosis and osteomalacia with multiple compression fractures. Age of the fractures is unclear.
--- NOTE | 2019-06-11 17:59 | XR ---
EXAMINATION TYPE: XR Hip LT and AP Pelvis DATE OF EXAM: 06/11/2019 COMPARISON: NONE HISTORY: Pain TECHNIQUE: 3 views FINDINGS: The pelvic ring is intact. Hip joint spaces are fairly normal. There is generalized osteope samantha. I see no hip fracture. Proximal femurs appear intact. IMPRESSION: Generalized osteopenia. No fracture seen.
--- NOTE | 2019-06-11 18:37 | CT ---
EXAMINATION TYPE: CT lumbar spine wo con DATE OF EXAM: 06/11/2019 COMPARISON: None HISTORY: Pain post fall CT DLP: 695 mGycm Automated exposure control for dose reduction was used. There is generalized osteopenia. There is biconcave deformity of all the lumbar vertebra and also T12 with loss of height up to 30%. The posterior elements are intact. Abdominal aorta is atheromatous. T here is no lumbar paraspinal mass. There is 1.3 cm nodular infiltrate right lower lobe. Sacroiliac silvio ints appear intact. IMPRESSION: There is osteoporosis and osteomalacia with multiple compression fractures. Age of the fractures is n ot clear.
--- NOTE | 2019-06-11 18:41 | CT ---
EXAMINATION TYPE: CT hip LT wo con DATE OF EXAM: 06/11/2019 COMPARISON: None HISTORY: Pain post fall CT DLP: 393.8 mGycm Automated exposure control for dose reduction was used. Multiple axial sections were obtained from the top of the iliac crest to the subtrochanteric femur wi th no contrast. There is generalized osteopenia. The proximal left femur is intact. There is no evidence of femoral f racture. The acetabulum is intact. Left ischium is intact. Sacroiliac joint is intact. There is mild spurring at the hip joint. IMPRESSION: No acute abnormality of the left hip. Osteopenia.
[2019-06-11 18:51] VITALS: PULSE 88; RESP 24
[2019-06-11] MEDS ORDERED: methylPREDNISolone SOD SUCCI 125 MG/2 ML VIAL IV STA (19:06)
== END 2019-06-11 19:35 | disposition home or self-care (01) ==
LOC: EC 16:16
DX: M54.42 Lumbago with sciatica, left side (principal); I50.9 Heart failure, unspecified; J44.9 Chronic obstructive pulmonary disease, unspecified; Z79.82 Long term (current) use of aspirin; Z79.51 Long term (current) use of inhaled steroids; Z87.891 Personal history of nicotine dependence
CPT/HCPCS: 36415; 80053; 82550; 83735; 85025; 81003; 72110; 73502; 72131; 73700; 96374; 96375; 99284; J2930; J1885

== ENCOUNTER 2019-06-21 08:44 | Inpatient (IN) | payer MEDICARE, OTHER ==
[2019-06-21] MEDS ORDERED: SODIUM CHLORIDE 0.9% 500 ML 500 ML IV STA (09:18)
--- NOTE | 2019-06-21 09:28 | ED ---
Back Pain HPI - General Chief Complaint: Back Pain/Injury Stated Complaint: sciatic pain Time Seen by Provider: 06/21/19 09:03 Source: EMS Limitations: no limitations - History of Present Illness Initial Comments: Patient is an 83-year-old female, with past medical history COPD on 2 L at home, presenting to the emergency department via EMS with complaints of left hip pain that has been ongoing for the past couple weeks. Patient's son-in-law is with her now. Son-in-law states that patient was in the ER proximal leg 10 days ago for same complaint and did have multiple x-rays performed as well as lumbar and left hip CT without any acute abnormalities other than some lumbar compression fractures, age undetermined. Patient has been continuing to have pain in her left hip, left leg area. Son-in-law denies any falls or trauma. Son-in-law also believes patient seems more confused for the past few days as well as been having accidents and not making it to the restroom. She denies any fever, chills, nausea, vomiting, abdominal pain. Son-in-law states she was hospital ized a few months ago for pneumonia however she has not been coughing more unusual. She has been seeing her PCP regarding her left hip pain which they believe is sciatica. Patient was increased on her pain medicine and also started on steroids. Pain has not been improving. Patient was ambulating with a cane a few weeks ago but has transitioned into a walker. Son-in-law states it takes her a long time to use a walker and to walk to the restroom. She refused to walk today. There are no other complaints at this time. Patient received 4 mg of morphine and the EMS prior to arrival. Vital signs on arrival, pulse is 107, respiratory rate 16, BP 142/81, 95% on 2 L, afebrile. - Related Data Home Medications Medication Instructions Recorded Confirmed Aspirin [Adult Low Dose Aspirin EC] 81 mg PO DAILY 03/21/19 06/21/19 Albuterol Nebulized [Ventolin 2.5 mg INHALATION RT-TID 04/20/19 06/21/19 Nebulized] Cholecalciferol [Vitamin D3 (25 1,000 unit PO DAILY 06/21/19 06/21/19 Mcg = 1000 Iu)] Formoterol Fumarate [Perforomist] 20 mcg INHALATION RT-BID 06/21/19 06/21/19 predniSONE See Taper PO DAILY 06/21/19 06/21/19 traMADol HCL [Ultram] 50 mg PO BID-W/MEALS 06/21/19 06/21/19 Previous Rx's Medication Instructions Recorded Budesonide [Pulmicort] 0.5 mg INHALATION RT-BID #60 nebu 04/24/19 Allergies Allergy/AdvReac Type Severity Reaction Status Date / Time No Known Allergies Allergy Verified 06/21/19 11:25 Review of Systems ROS Statement: Those systems with pertinent positive or pertinent negative responses have been documented in the HPI. ROS Other: All systems not noted in ROS Statement are negative. Past Medical History Past Medical History: Heart Failure, COPD, Pneumonia Additional Past Medical History / Comment(s): COPD, costochondritis, wears home oxygen 2L History of Any Multi-Drug Resistant Organisms: None Reported Past Surgical History: Bladder Surgery, Hysterectomy, Tonsillectomy Additional Past Surgical History / Comment(s): cataract surgery x2 Past Anesthesia/Blood Transfusion Reactions: No Reported Reaction, Unable to Obtain Additional Past Anesthesia/Blood Transfusion Reaction / Comment(s): has no had a blood transfusions Past Psychological History: No Psychological Hx Reported Smoking Status: Former smoker Past Alcohol Use History: None Reported Past Drug Use History: None Reported - Past Family History Father Family Medical History: Myocardial Infarction ([place]) General Exam - General Exam Comments Initial Comments: GENERAL: Patient appears fatigued, slightly disheveled, uncomfortable. HEAD: Atraumatic, normocephalic. EYES: Pupils equal round and reactive to light, extraocular movements intact, sclera anicteric, conjunctiva are normal. ENT: TMs normal, nares patent, oropharynx clear without exudates. Moist mucous membranes. NECK: Normal range of motion, supple without lymphadenopathy or JVD. LUNGS: Breath sounds clear to auscultation bilaterally and equal. No wheezes rales or rhonchi. HEART: Regular rate and rhythm without murmurs, rubs or gallops. ABDOMEN: Soft, nontender, normoactive bowel sounds. No guarding, no rebound. No masses appreciated. : Deferred EXTREMITIES: Tender to palpation of the left lateral and posterior hip. Decreased range of motion secondary to pain. Unable to ambulate. NEUROLOGICAL: Cranial nerves II through XII grossly intact. Normal speech, A&O x 3 SKIN: Warm, Dry, normal turgor, no rashes or lesions noted. Limitations: no limitations Course Vital Signs 06/21/19 06/21/19 08:50 10:22 Temperature 97 F L Pulse Rate 107 H 53 L Respiratory 16 16 Rate Blood Pressure 142/81 139/60 O2 Sat by Pulse 95 90 L Oximetry Medical Decision Making - Medical Decision Making Patient is an 83-year-old female presenting with low back pain for the past few weeks. She is now experiencing gait issues and son-in-law think she seems more confused than usual. Patient was in the ER 10 days ago and had extensive imaging on her left hip and lumbar region. Images were reviewed. Lumbar compression fractures were found. Patient has seen PCP for left sciatica and started on steroids without improvement. She presents today unable to ambulate with use of a walker. She is also experiencing increased shortness of breath. Vital signs are stable on 2 L. Lab work shows slight leukocytosis of 14.6, rest of lab work shows no acute abnormalities. Urine shows no signs of infection. Chest x-ray shows COPD with large right upper lobe mass suspicious for malignancy that is slightly increased in size from prior exam 1 month previous. I discussed these findings with patient and son-in-law. He has concerns for ability to care for patient at his home. Patient will be admitted for COPD exacerbation, lung mass as well as placement concerns. Dr. Zee will be accepting with consult pulmonology as well as PT. Patient and son-in-law are in agreement with this plan of care. Case is discussed with Dr. Rubin who agrees with plan of care. - Lab Data Result diagrams: 06/21/19 10:02 06/21/19 10:02 Lab Results 06/21/19 06/21/19 06/21/19 Range/Units 10:02 10:02 10:02 WBC 14.6 H (3.8-10.6) k/uL RBC 4.08 (3.80-5.40) m/uL Hgb 12.0 (11.4-16.0) gm/dL Hct 36.8 (34.0-46.0) % MCV 90.3 (80.0-100.0) fL MCH 29.3 (25.0-35.0) pg MCHC 32.5 (31.0-37.0) g/dL RDW 13.8 (11.5-15.5) % Plt Count 398 (150-450) k/uL Neutrophils % 91 % Lymphocytes % 3 % Monocytes % 4 % Eosinophils % 1 % Basophils % 0 % Neutrophils # 13.2 H (1.3-7.7) k/uL Lymphocytes # 0.5 L (1.0-4.8) k/uL Monocytes # 0.7 (0-1.0) k/uL Eosinophils # 0.2 (0-0.7) k/uL Basophils # 0.0 (0-0.2) k/uL PT 9.9 (9.0-12.0) sec INR 0.9 (<1.2) APTT 23.4 (22.0-30.0) sec Sodium 137 (137-145) mmol/L Potassium 4.3 (3.5-5.1) mmol/L Chloride 101 (98-107) mmol/L Carbon Dioxide 31 H (22-30) mmol/L Anion Gap 5 mmol/L BUN 39 H (7-17) mg/dL Creatinine 0.92 (0.52-1.04) mg/dL Est GFR (CKD-EPI)AfAm 66 (>60 ml/min/1.73 sqM) Est GFR (CKD-EPI)NonAf 57 (>60 ml/min/1.73 sqM) Glucose 105 H (74-99) mg/dL Calcium 9.3 (8.4-10.2) mg/dL Total Bilirubin 0.5 (0.2-1.3) mg/dL AST 25 (14-36) U/L ALT 18 (4-34) U/L Alkaline Phosphatase 104 (38-126) U/L Total Protein 6.0 L (6.3-8.2) g/dL Albumin 3.4 L (3.5-5.0) g/dL Urine Color Urine Appearance (Clear) Urine pH (5.0-8.0) Ur Specific [place] (1.001-1.035) Urine Protein (Negative) Urine Glucose (UA) (Negative) Urine Ketones (Negative) Urine Blood (Negative) Urine Nitrite (Negative) Urine Bilirubin (Negative) Urine Urobilinogen (<2.0) mg/dL Ur Leukocyte Esterase (Negative) Urine RBC (0-5) /hpf Urine WBC (0-5) /hpf Ur Squamous Epith Cells (0-4) /hpf Urine Bacteria (None) /hpf Urine Mucus (None) /hpf 06/21/19 Range/Units 10:15 WBC (3.8-10.6) k/uL RBC (3.80-5.40) m/uL Hgb (11.4-16.0) gm/dL Hct (34.0-46.0) % MCV (80.0-100.0) fL MCH (25.0-35.0) pg MCHC (31.0-37.0) g/dL RDW (11.5-15.5) % Plt Count (150-450) k/uL Neutrophils % % Lymphocytes % % Monocytes % % Eosinophils % % Basophils % % Neutrophils # (1.3-7.7) k/uL Lymphocytes # (1.0-4.8) k/uL Monocytes # (0-1.0) k/uL Eosinophils # (0-0.7) k/uL Basophils # (0-0.2) k/uL PT (9.0-12.0) sec INR (<1.2) APTT (22.0-30.0) sec Sodium (137-145) mmol/L Potassium (3.5-5.1) mmol/L Chloride (98-107) mmol/L Carbon Dioxide (22-30) mmol/L Anion Gap mmol/L BUN (7-17) mg/dL Creatinine (0.52-1.04) mg/dL Est GFR (CKD-EPI)AfAm (>60 ml/min/1.73 sqM) Est GFR (CKD-EPI)NonAf (>60 ml/min/1.73 sqM) Glucose (74-99) mg/dL Calcium (8.4-10.2) mg/dL Total Bilirubin (0.2-1.3) mg/dL AST (14-36) U/L ALT (4-34) U/L Alkaline Phosphatase (38-126) U/L Total Protein (6.3-8.2) g/dL Albumin (3.5-5.0) g/dL Urine Color Yellow Urine Appearance Cloudy H (Clear) Urine pH 6.0 (5.0-8.0) Ur Specific [place] 1.019 (1.001-1.035) Urine Protein 1+ H (Negative) Urine Glucose (UA) Negative (Negative) Urine Ketones Negative (Negative) Urine Blood Small H (Negative) Urine Nitrite Negative (Negative) Urine Bilirubin Negative (Negative) Urine Urobilinogen <2.0 (<2.0) mg/dL Ur Leukocyte Esterase Small H (Negative) Urine RBC 6 H (0-5) /hpf Urine WBC 8 H (0-5) /hpf Ur Squamous Epith Cells 1 (0-4) /hpf Urine Bacteria Many H (None) /hpf Urine Mucus Occasional H (None) /hpf Disposition Clinical Impression: Acute exacerbation of chronic obstructive pulmonary disease, Left sided sciatica, Lung mass Disposition: ADMITTED IP TO THIS HOSP Condition: Good Is patient prescribed a controlled substance at d/c from ED?: No Referrals: Jp Caraballo DO [Primary Care Provider] - 1-2 days Decision Date: 06/21/19 Decision Time: 12:09
[2019-06-21 10:23] LABS: Basophils % (A) 0 %; Eosinophils # (A) 0.2 k/uL (0-0.7); Eosinophils % (A) 1 %; HCT 36.8 % (34.0-46.0); Lymphocytes # (A) 0.5 k/uL (1.0-4.8); Lymphocytes % (A) 3 %; MCH 29.3 pg (25.0-35.0); MCHC 32.5 g/dL (31.0-37.0); MCV 90.3 fL (80.0-100.0); Monocytes # (A) 0.7 k/uL (0-1.0); Monocytes % (A) 4 %; Neutrophils # (A) 13.2 k/uL (1.3-7.7); Neutrophils % (A) 91 %; Platelet Count 398 k/uL (150-450); RBC 4.08 m/uL (3.80-5.40); RDW 13.8 % (11.5-15.5); WBC 14.6 k/uL (3.8-10.6)
[2019-06-21 10:36] LABS: INR 0.9 (<1.2); Partial Thromboplastin Time 23.4 sec (22.0-30.0); Prothrombin Time 9.9 sec (9.0-12.0)
[2019-06-21 10:46] LABS: Albumin 3.4 g/dL (3.5-5.0); Calcium 9.3 mg/dL (8.4-10.2); Potassium 4.3 mmol/L (3.5-5.1); Total Bilirubin 0.5 mg/dL (0.2-1.3)
[2019-06-21 10:59] LABS: Appearance,Urine Cloudy (Clear); Bacteria,Urine Many /hpf; Bilirubin,Urine Negative (Negative); Blood,Urine Small (Negative); Color,Urine Yellow; Glucose,Urine (UA) Negative (Negative); Ketones,Urine Negative (Negative); Leukocyte Esterase,Urine Small (Negative); Mucus,Urine Occasional /hpf; Nitrite,Urine Negative (Negative); Protein,Urine 1+ (Negative); RBC,Urine 6 /hpf (0-5); Specific Gravity,Urine 1.019 (1.001-1.035); Squamous Epithelial Cell,Urine 1 /hpf (0-4); Urobilinogen,Urine <2.0 mg/dL (<2.0); WBC,Urine 8 /hpf (0-5)
--- NOTE | 2019-06-21 11:28 | XR ---
EXAMINATION TYPE: XR chest 2V DATE OF EXAM: 06/21/2019 COMPARISON: 04/23/2019 TECHNIQUE: PA and lateral views submitted. HISTORY: Shortness of breath FINDINGS: Diffuse emphysematous changes are noted and there again appears to be a large right upper lobe mass. May be slightly increased in size from the prior exam. Measures 2.4 cm. Producing measuring 2 cm. Coa rsened interstitium is stable suggestive of chronic interstitial lung disease and there is ectasia of the aorta. Diffuse osteopenia and arthropathy of the shoulders. Multiple compression deformities wit hin the vertebral column are noted. Pleural thickening or tiny bilateral pleural effusions noted. IMPRESSION: 1. COPD with large right upper lobe mass suspicious for malignancy slightly increased in size from th e prior exam of 04/23/2019. 2. COPD and findings suggestive of chronic interstitial lung disease. 3. Degenerative change of the spine with multiple age-indeterminate compression deformities.
[2019-06-21] MEDS ORDERED: ACETAMINOPHEN TAB 325 MG TAB PO PRN (12:00)
[2019-06-21] MEDS ORDERED: traMADol 50 MG TAB PO PRN (12:00)
[2019-06-21] MEDS ORDERED: MORPHINE SULFATE 4 MG/ML SYRINGE IV PRN (12:00)
[2019-06-21] MEDS ORDERED: NALOXONE 0.4 MG/ML 1 ML VIAL IV PRN (12:00)
[2019-06-21] MEDS: SODIUM CHLORIDE 0.9% 1,000 ML IV SCH (12:23)
[2019-06-21] MEDS ORDERED: IPRATROPIUM-ALBUTEROL 3 ML NEB INHALATION PRN (15:30)
[2019-06-21] MEDS: IPRATROPIUM-ALBUTEROL 3 ML NEB INHALATION SCH ×2 (16:06→19:52)
[2019-06-21] MEDS ORDERED: IOPAMIDOL CONTRAST (ORAL USE) VIAL PO PRN (17:05)
[2019-06-21] MEDS ORDERED: HYDROmorphone 0.5 MG/0.5 ML SYRINGE IVP PRN (17:07)
[2019-06-21] MEDS ORDERED: ALPRAZolam 0.25 MG TAB PO PRN (17:07)
[2019-06-21 18:54] LABS: Glucose,Whole Blood 77 mg/dL (75-99)
[2019-06-21] MEDS: INSULIN ASPART (NovoLOG) 100 UNIT/ML VIAL SQ SCH ×2 (18:55→22:39)
[2019-06-21] MEDS: traMADol 50 MG TAB PO SCH (18:57)
[2019-06-21] MEDS: methylPREDNISolone SOD SUCCI 125 MG/2 ML VIAL IV SCH (18:57)
--- NOTE | 2019-06-21 19:24 | CT ---
EXAMINATION TYPE: CT abdomen pelvis wo con DATE OF EXAM: 06/21/2019 COMPARISON: None HISTORY: Left hip pain. Abdominal pain CT DLP: mGycm Automated exposure control for dose reduction was used. Multiple axial sections were obtained from the diaphragm to the floor the pelvis with no contrast. There is patchy infiltrate and atelectasis at the lung bases. Heart size is normal. There is small le ft pleural effusion. There is moderate vascular calcification. Spleen is intact. There is no evidence of pancreatic mass. There is 8 x 3 cm fluid collection anterior to the right lobe of the liver. This is probably an elongated gallbladder. There is mild ectasia of the biliary tree. The right kidney is large with hydronephrosis. The bladder is moderately dilated. Bladder measures 13 cm. Left kidney has mild ectasia of the renal pelvis. There is 4 cm cyst lower pole left kidney. The re is no evidence of retroperitoneal adenopathy. 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 There is no free fluid in the pelvis. There is retained fecal material throughout the large bowel. Th ere is no sign of free air. There is no ascites. There is compression deformity of multiple lumbar vertebra with biconcave changes consistent with ost eomalacia. There is loss of height up to 30%. The bony pelvis is intact. There is no inguinal hernia. IMPRESSION: Moderately enlarged right kidney with hydronephrosis. Mildly dilated urinary bladder. Chronic bladder outlet obstruction suspected. Lumbar compression fractures consistent with osteomalacia. Extensive atherosclerotic vascular disease. Constipation. Basilar pulmonary infiltrates and atelectasis. No free hip fracture seen.
[2019-06-21] MEDS ORDERED: hydrALAZINE HCL 20 MG/ML 1 ML VIAL IVP STA (19:27)
[2019-06-21] MEDS: BUDESONIDE 1 MG/2 ML NEBU INHALATION SCH (19:51)
[2019-06-21] MEDS: FORMOTEROL FUMARATE 20 MCG/2 ML NEBU INHALATION SCH (19:52)
[2019-06-21] MEDS: HEPARIN SODIUM,PORCINE 5,000 UNIT/ML 1 ML VIAL SQ SCH (20:14)
[2019-06-21] MEDS: LISINOPRIL 10 MG TAB PO SCH (20:14)
--- NOTE | 2019-06-21 20:53 | HP ---
HISTORY AND PHYSICAL DATE OF SERVICE: 06/21/2019. CHIEF COMPLAINTS: Back pain, leg pain and shortness of breath. HISTORY OF PRESENT ILLNESS: This 83-year-old woman with a past medical history of multiple medical problems including history of congestive heart failure, history of COPD, pneumonia, history of chronic hypoxic respiratory failure, history of bladder surgery, being followed by Dr. Caraballo and Dr. Castellanos in the outpatient setting was recently evaluated in the ER with complaints of back pain. Lumbar CT scan was done which showed osteoporosis and osteopenia with multiple compression fractures. The hip CT was also done which showed no acute abnormality, but osteopenia. The patient continues to have severe pain and the patient is keeping the left leg in a flexed position. Because of increasing difficulty, the patient came to [facility] and was admitted for further evaluation and treatment. There is no history of fever, rigors. No history of headache, loss of consciousness or seizures. The patient is emaciated as well. No history of active trauma. PAST MEDICAL HISTORY: History of CHF, COPD, history of pneumonia, history of chronic hypoxic respiratory failure, history of bladder surgery. MEDICATIONS: Prior to admission include: Home medications: 1. Prednisone daily. 2. Ultram 50 mg p.o. b.i.d. with meals. 3. Perforomist 20 mcg b.i.d. 4. Vitamin D3 1000 mg p.o. 5. Pulmicort 0.5 b.i.d. 6. Aspirin 81 mg p.o. daily. 7. Albuterol 2.5 t.i.d. ALLERGIES: None. FAMILY HISTORY: History of myocardial infarction in the family. SOCIAL HISTORY: Previous history of smoking. No history of current smoking or alcohol intake. REVIEW OF SYSTEMS: ENT diminished vision. Diminished hearing. CARDIOVASCULAR system as mentioned earlier. RESPIRATORY: As mentioned earlier. GASTROINTESTINAL: As mentioned earlier. as mentioned earlier. NERVOUS SYSTEM: Higher functions as mentioned earlier. HEMATOLOGY/ONCOLOGY: No history of anemia. ALLERGIES/IMMUNOLOGY: No asthma or hayfever. MUSCULOSKELETAL as mentioned earlier. ENDOCRINE: No history of diabetes or hypothyroidism. CONSTITUTIONAL: As mentioned earlier. DERMATOLOGY: Negative. RHEUMATOLOGY: Negative. PSYCHIATRY: As mentioned earlier. PHYSICAL EXAMINATION: Alert and oriented times two. Mildly confused. Pulse 96, blood pressure 149/88, respirations 16, temperature 97 degrees, pulse ox 98% on 3 L. HEENT is conjunctivae normal. Oral mucosa moist. NECK is no jugular venous distention. No carotid bruit. No lymph node enlargement. Cardiovascular S1-S2 muffled. Respiration: Breath sounds diminished in the bases. Scattered rhonchi. Expiratory wheezing also present. ABDOMEN: Soft, scaphoid. Mild diffuse discomfort. No guarding. No mass palpable. Legs no edema. No swelling. Otherwise movements of the leg especially the left hip is painful. The patient is keeping the left leg in a flexed position. Nervous system as mentioned earlier. Moves all 4 limbs otherwise painful movements of the left lower limb. Otherwise, no focal deficits. Skin: No ulcer, no rash, no bleeding. Joints: No active deforming arthropathy. LABS: This admission: WBC 14.2, hemoglobin is 12, sodium 137, potassium 4, UA noted. ASSESSMENT: 1. Severe left leg pain and as well as back pain with gait dysfunction, possible degenerative joint disease with multiple compression fractures. 2. Rule out intraabdominal pathology. 3. Severe chronic obstructive pulmonary disease. 4. Possible acute urinary tract infection present on admission. 5. Hypoalbuminemia with mild to moderate protein calorie malnutrition. 6. Increased WBC. 7. History of congestive heart failure ejection fraction unknown. 8. History of pneumonia. 9. History of chronic hypoxic respiratory failure on 2 L nasal cannula. 10.History of osteopenia and back pain. 11.History of osteoporosis. 12.History of cataracts. 13.Severe gait dysfunction. 14.Remote history of nicotine dependence. 15.FULL CODE. RECOMMENDATIONS AND DISCUSSION: In this 78-year-old woman who presented with multiple complex medical issues, we will monitor the patient closely, continue the current medications, management and symptomatic treatment. Otherwise, I would provide symptomatic pain management. I would also consult Dr. Allen, for the back pain. The patient has severe compression fractures age indeterminate. The patient also keeping the left leg in a flexed position. I would also recommend a CT scan of the abdomen and pelvis to rule out any intraabdominal pathology. Otherwise, urine is mildly abnormal. I would obtain cultures and initiate empiric antibiotic treatment. Otherwise Dr. Lyon will be consulted for evaluation and continued follow up and recommendations from the COPD point of view. Otherwise PT, OT also will be consulted. DVT prophylaxis. I would also recommend ECF rehab also. Advance nutrition. Closely follow with Case Management Team and social workers. Prognosis is guarded because of above mentioned multiple complex medical issues. Discussed with the family at the bedside and further recommendations to follow. A copy of this dictation being forwarded to Dr. Caraballo who is the primary physician. . MMODL / IJN: [id number] /
[2019-06-21 21:58] LABS: Glucose,Whole Blood 87 mg/dL (75-99)
--- NOTE | 2019-06-21 22:08 | CONS ---
CONSULTATION This is a pulmonary/critical care consultation. DATE OF SERVICE: June 21, 2019 REASON FOR CONSULTATION: Back pain. HISTORY OF PRESENT ILLNESS: This is an 83-year-old female with a history of COPD. She does use oxygen at home at 2 L. She apparently presents to the emergency room via EMS for left hip pain and back pain. It has been going on for a couple weeks. She apparently was in the emergency room about 10 days prior for the same complaint. She apparently had multiple x-rays performed as well as lumbar and left hip CT scans without any acute abnormalities other than lumbar compression fractures. There has been no trauma according to the son-in- law or the patient. Also, the patient apparently seems to be more confused according to the son-in-law and also has been profoundly weak. She also apparently has been not able to make it to the bathroom to have bowel movements and/or pass her urine. There apparently is no fever, chills, nausea, vomiting, abdominal pain. She was hospitalized a couple months back according to her son-in-law for pneumonia. She does see 1 of my partners for underlying COPD. The patient adamantly denies that the reason she is in the emergency room was for her breathing. She does not appear to be short of breath. She is on nasal O2. MEDICATIONS: Her medications include aspirin low dose, albuterol updrafts, vitamin D3, Perforomist 20 mcg twice a day, prednisone, tramadol, and Pulmicort 0.5 mg twice a day. ALLERGIES: Denied. PAST MEDICAL HISTORY: Apparently positive for chronic back and hip pain, CHF, COPD, pneumonia, costochondritis, chronic hypoxemic respiratory failure, and some other minor medical problems. SURGICAL HISTORY: Includes hysterectomy, tonsillectomy, bladder surgery, cataract surgery x2. SOCIAL HISTORY: Positive for previous heavy tobacco use. Does not smoke currently. She smoked for more than 60 years. Denies alcohol use or illicit drug use. FAMILY HISTORY: Positive for a father with myocardial infarction. REVIEW OF SYSTEMS: CONSTITUTIONAL weakness. NEUROLOGIC negative. HEENT negative. CARDIOVASCULAR negative. PULMONARY: Chronic shortness of breath, not more than usual. GI negative. incontinence. RHEUMATOLOGIC negative. IMMUNOLOGIC negative ENDOCRINOLOGIC negative. DERMATOLOGIC negative. PHYSICAL EXAMINATION: VITAL SIGNS: Current vital signs are reviewed. Temperature is 97, heart rate 98, respiratory rate 16, blood pressure 149/88. Mean 108, 3 L saturation 98%. GENERAL: Appears in no distress. HEENT examination is grossly unremarkable. Mucous membranes are moist. Nasal O2 noted. NECK: Supple. Full range of motion. No adenopathy. Neck veins are flat. CARDIOVASCULAR examination reveals regular rhythm and rate. Heart rate in mid 80s. S1, S2 normal. No murmur. Heart sounds are distant. LUNGS: Clear, but diminished breath sounds. No wheezes, rhonchi, or crackles. No prolongation. No adventitious lung sounds. ABDOMEN: Soft. Bowel sounds are heard. EXTREMITIES are intact. No edema. SKIN: Without rash. NEUROLOGIC: Examination is brief but nonfocal. LABS: Reviewed. White count 14.6, hemoglobin 12, hematocrit 36.8, platelet count 398, 000. PT/INR PTT all normal. Sodium, potassium, chloride normal. CO2 31, anion gap 5. BUN and creatinine were 39 and 0.92. Albumin 3.4. Urine is yellow and cloudy. There is 1+ protein, small blood, nitrite was negative, leukocyte esterase was small positive, 6 RBCs 8 WBCs, many bacteria. Occasional urinary mucus. Microbiology is negative. X-RAY: Chest x-ray done on June 21 shows changes of COPD with a right upper lobe mass, suspicious for malignancy, increased in size compared to the prior exam in April 2019. There may also be some chronic interstitial and fibrotic changes and degenerative changes of the spine. ASSESSMENT: 1. Acute on chronic back and hip pain, of unclear etiology. May relate to compression vertebral compression fractures. 2. Severe and chronic chronic obstructive pulmonary disease, not particularly active, worse at this time. 3. Enlarging mass right upper lung, may represent lung cancer. 4. History of previous heavy tobacco use. 5. History of congestive heart failure. 6. History of pneumonia. 7. History of cataract surgery. PLAN: We will get her back on her usual medications. I do not believe she needs any steroids. She likely will need pain control. She may need rehab and/or placement in a jail. Additional recommendations and suggestions are forthcoming. Prognosis is poor. MMODL / IJN: [id number] /
[2019-06-22] MEDS: methylPREDNISolone SOD SUCCI 125 MG/2 ML VIAL IV SCH ×6 (00:20→23:44)
[2019-06-22] MEDS: SODIUM CHLORIDE 0.9% 1,000 ML IV SCH ×2 (05:17→12:46)
[2019-06-22 07:00] LABS: Glucose,Whole Blood 157 mg/dL (75-99)
[2019-06-22] MEDS: PANTOPRAZOLE 40 MG TABLET PO SCH (07:39)
[2019-06-22] MEDS: INSULIN ASPART (NovoLOG) 100 UNIT/ML VIAL SQ SCH ×4 (07:39→21:16)
[2019-06-22] MEDS: traMADol 50 MG TAB PO SCH ×2 (07:39→17:06)
[2019-06-22 08:43] LABS: Basophils % (A) 0 %; Eosinophils % (A) 0 %; HCT 40.4 % (34.0-46.0); HGB 12.9 gm/dL (11.4-16.0); Lymphocytes # (A) 0.2 k/uL (1.0-4.8); Lymphocytes % (A) 2 %; MCH 29.5 pg (25.0-35.0); MCHC 31.9 g/dL (31.0-37.0); MCV 92.4 fL (80.0-100.0); Monocytes # (A) 0.1 k/uL (0-1.0); Monocytes % (A) 1 %; Neutrophils # (A) 11.3 k/uL (1.3-7.7); Neutrophils % (A) 97 %; Platelet Count 412 k/uL (150-450); RBC 4.37 m/uL (3.80-5.40); RDW 13.6 % (11.5-15.5); WBC 11.6 k/uL (3.8-10.6)
[2019-06-22] MEDS: IPRATROPIUM-ALBUTEROL 3 ML NEB INHALATION SCH ×4 (09:06→21:00)
[2019-06-22] MEDS: FORMOTEROL FUMARATE 20 MCG/2 ML NEBU INHALATION SCH ×2 (09:06→21:00)
[2019-06-22] MEDS: BUDESONIDE 1 MG/2 ML NEBU INHALATION SCH ×2 (09:06→21:00)
[2019-06-22 09:40] LABS: Calcium 9.4 mg/dL (8.4-10.2); Potassium 4.6 mmol/L (3.5-5.1)
[2019-06-22] MEDS: HEPARIN SODIUM,PORCINE 5,000 UNIT/ML 1 ML VIAL SQ SCH ×2 (11:06→21:16)
[2019-06-22] MEDS: ASPIRIN 81 MG PO SCH (11:06)
[2019-06-22] MEDS: CHOLECALCIFEROL 1,000 UNIT TAB PO SCH (11:06)
[2019-06-22] MEDS: LISINOPRIL 10 MG TAB PO SCH (11:06)
[2019-06-22 11:40] LABS: Glucose,Whole Blood 204 mg/dL (75-99)
--- NOTE | 2019-06-22 12:20 | P.CNOR ---
History of Present Illness - HPI Consult date: 06/22/19 Consult reason: low back pain, other History of present illness: Left lower extremity pain I attempted to see the patient today at bedside that she was out of the room for testing. Apparently the patient has been having some confusion over the past several days but has also been complaining of low back and left lower extremity pain. The pain is present over the past several weeks. Patient is known to have multiple medical issues and multiple compression fractures at her lumbar spine of various ages. According to the daughter who was in the room at the time, the patient is not really having significant back pain but is having significant troubles down her left leg and trouble with ambulation. In addition to her confusion and her other medical issues the pain at her left leg has been persistent for her over the past several weeks. She had tried some steroid medication however this is causing her shoulders to be irregular and has only given some marginal benefit for her legs. Review of Systems As per her daughter, she is not having changes in her bowel bladder function. She is not sure. The patient never had prior epidural steroid injections. Patient is having some confusion as stated in HPI. Past Medical History Past Medical History: Heart Failure, COPD, Pneumonia, Respiratory Disorder Additional Past Medical History / Comment(s): Home oxygen at 2L/NC ATC, costochondritis, osteoporosis, back pain History of Any Multi-Drug Resistant Organisms: None Reported Past Surgical History: Bladder Surgery, Hysterectomy, Tonsillectomy Additional Past Surgical History / Comment(s): Bilateral cataract removals, colonoscopy Past Anesthesia/Blood Transfusion Reactions: No Reported Reaction, Unable to Obtain Additional Past Anesthesia/Blood Transfusion Reaction / Comm: has no had a blood transfusions Past Psychological History: No Psychological Hx Reported Additional Psychological History / Comment(s): Pt resides with her callie and son in law who are her caregivers. She ambulates with a walker. She has home oxygen and nebulizer. Smoking Status: Former smoker Past Alcohol Use History: None Reported Additional Past Alcohol Use History / Comment(s): Start smoking at 13 and stop smoking December 2018 Past Drug Use History: None Reported - Past Family History Father Family Medical History: Myocardial Infarction (PR) Mother Additional Family Medical History / Comment(s): Mother comitted suicide. Medications and Allergies Home Medications Medication Instructions Recorded Confirmed Type Aspirin [Adult Low Dose Aspirin EC] 81 mg PO DAILY 03/21/19 06/21/19 History Albuterol Nebulized [Ventolin 2.5 mg INHALATION RT-TID 04/20/19 06/21/19 History Nebulized] Budesonide [Pulmicort] 0.5 mg INHALATION RT-BID #60 nebu 04/24/19 06/21/19 Rx Cholecalciferol [Vitamin D3 (25 1,000 unit PO DAILY 06/21/19 06/21/19 History Mcg = 1000 Iu)] Formoterol Fumarate [Perforomist] 20 mcg INHALATION RT-BID 06/21/19 06/21/19 History predniSONE See Taper PO DAILY 06/21/19 06/21/19 History traMADol HCL [Ultram] 50 mg PO BID-W/MEALS 06/21/19 06/21/19 History Allergies Allergy/AdvReac Type Severity Reaction Status Date / Time No Known Allergies Allergy Verified 06/21/19 11:25 Physical Examination Osteopathic Statement: *. No significant issues noted on an osteopathic structural exam other than those noted in the History and Physical/Consult. Results - Labs Labs: Abnormal Lab Results - Last 24 Hours (Table) 06/21/19 06/22/19 06/22/19 Range/Units 19:00 06:41 07:31 WBC 11.6 H (3.8-10.6) k/uL Neutrophils # 11.3 H (1.3-7.7) k/uL Lymphocytes # 0.2 L (1.0-4.8) k/uL BUN (7-17) mg/dL Glucose (74-99) mg/dL POC Glucose (mg/dL) 157 H (75-99) mg/dL C-Reactive Protein 76.1 H (<10.0) mg/L 06/22/19 06/22/19 Range/Units 07:31 11:37 WBC (3.8-10.6) k/uL Neutrophils # (1.3-7.7) k/uL Lymphocytes # (1.0-4.8) k/uL BUN 38 H (7-17) mg/dL Glucose 204 H (74-99) mg/dL POC Glucose (mg/dL) 204 H (75-99) mg/dL C-Reactive Protein (<10.0) mg/L Microbiology - Last 24 Hours (Table) 06/21/19 10:04 Urine Culture - Preliminary Urine,Catheterized H & H 06/21/19 06/22/19 Range/Units 10:02 07:31 Hgb 12.0 12.9 (11.4-16.0) gm/dL Hct 36.8 40.4 (34.0-46.0) % Coagulation 06/21/19 Range/Units 10:02 INR 0.9 (<1.2) Result Diagrams: 06/22/19 07:31 06/22/19 07:31 - Diagnostic results CT Scan - lumbar: report reviewed, image reviewed (I reviewed the computed tomography scan done today and compared it with the computed tomography scan done 1 month ago here at [facility]. I reviewed these in terms of her lumbar spine. She has compression fractures at L1 2 3 4 and 5 as well as at T12. I do not see any acute change in these compression deformities. There are of various ages and stages of healing but none of them appear to be grossly acute. She does have significant stenosis particularly at L3 4 and L4 5. There is degenerative disc disease as well.) Assessment and Plan Assessment: Left lower extremity radiculopathy Spinal stenosis Multiple chronic compression fractures without acute instability Multiple medical problems Confusion Plan: Left lower extremity radiculopathy Spinal stenosis Multiple chronic compression fractures without acute instability Multiple medical problems Confusion I reviewed the patient's chart and the imaging. Patient is not in her room to be examined. The patient seems to have significant left lower extremity radicular symptoms likely stemming from her stenosis particularly at L3 4 and L4 5. She had trouble with taking the IV oral steroids due to her blood sugars but she may be a candidate for epidural steroid injections. We will have anesthesia and pain management service see her in regards to possibility of epidural steroid injections to see if this alleviates some of her lower extremity issues. The patient does have multiple chronic compression fractures though I do not see acute instability and I do not think that she needs any specific bracing. We do not have any plans for surgical intervention for her lumbar spine at this point. The patient should continue with conservative management in terms of her lumbar spine and consider the possibility of epidural steroid injections with pain management service. Patient has multiple medical issues and is having some increased confusion. She is continuing her workup in regards to her confusion and I think she is having a head CT at the present time. She is also continue her management of her multiple medical problems and will likely need intermediate post hospitalization. From a spine surgery standpoint it is okay for the patient to be discharged to intermediate when she is comfortable and safe from a medical standpoint.
--- NOTE | 2019-06-22 12:28 | CT ---
EXAMINATION TYPE: CT brain wo con DATE OF EXAM: 06/22/2019 HISTORY: AMS CT DLP: 1044.4 mGycm. Automated Exposure Control for Dose Reduction was Utilized. TECHNIQUE: CT scan of the head is performed without contrast. COMPARISON: None. FINDINGS: There is no acute intracranial hemorrhage or midline shift identified. There is diffuse v entricular and sulcal prominence consistent with diffuse age-related cerebral atrophy. There is low- attenuation in the deep and periventricular white matter most likely on the basis of product of chron ic small vessel ischemic change. The globes are intact and the visualized sinuses are clear. IMPRESSION: No acute intracranial hemorrhage or midline shift. There is mild to moderate diffuse ag e-related cerebral atrophy and fairly advanced chronic small vessel ischemic change noted.
--- NOTE | 2019-06-22 14:18 | P.PN ---
Subjective Progress Note Date: 06/22/19 Principal diagnosis: Acute on chronic back pain and hip pain of unclear etiology, history of severe chronic COPD with very mild exacerbation On 06/22/2019 patient seen in follow-up on medical surgical floor. She is awake and alert, she is sitting up in the recliner right now, and some back and hip pain but no acute distress. She is currently on 3 L oxygen with a pulse ox of 95-97%, she is afebrile, hemodynamically stable, on sounds are diminished, but breathing seems to be stable right now, patient does not appear to be in any significant respiratory distress, no major wheezing or congestion. Her daughter is at the bedside, and she states patient was noted to have some increased confusion and loss of bladder control. She has been evaluated by orthopedic surgery and epidural injections have been recommended. CT of the brain was obtained showing no acute intracranial hemorrhage or midline shift, mild to moderate diffuse age-related cerebral atrophy and fairly advanced chronic small vessel ischemic changes. Today's labs were noted Objective - Vital Signs Vital signs: Vital Signs Temp 98.6 F 06/22/19 07:00 Pulse 99 06/22/19 12:45 Resp 18 06/22/19 12:45 BP 115/79 06/22/19 07:00 Pulse Ox 95 06/22/19 07:00 Intake & Output 06/21/19 06/22/19 06/22/19 18:59 06:59 18:59 Intake Total 1430 Balance 1430 Weight 52.163 kg 52.163 kg Intake: Oral 1430 Other: Voiding Method Diaper Diaper # Voids 2 1 - Exam GENERAL EXAM: Alert, frail looking, 83-year-old white female, on 3 L of oxygen and the pulse ox 90% comfortable in no apparent distress. HEAD: Normocephalic/atraumatic. EYES: Normal reaction of pupils, equal size. Conjunctiva pink, sclera white. NOSE: Clear with pink turbinates. THROAT: No erythema or exudates. NECK: No masses, no JVD, no thyroid enlargement, no adenopathy. CHEST: No chest wall deformity. Symmetrical expansion. LUNGS: Equal air entry with diminished breath sounds bilaterally CVS: Regular rate and rhythm, normal S1 and S2, no gallops, no murmurs, no rubs ABDOMEN: Soft, nontender. No hepatosplenomegaly, normal bowel sounds, no guarding or rigidity. EXTREMITIES: No clubbing, no edema, no cyanosis, 2+ pulses and upper and lower extremities. MUSCULOSKELETAL: Muscle strength and tone normal. SPINE: No scoliosis or deformity SKIN: No rashes CENTRAL NERVOUS SYSTEM: Alert and oriented -3. No focal deficits, tone is normal in all 4 extremities. PSYCHIATRIC: Alert and oriented -3. Appropriate affect. Intact judgment and insight. - Labs CBC & Chem 7: 06/22/19 07:31 06/22/19 07:31 Labs: Abnormal Lab Results - Last 24 Hours (Table) 06/21/19 06/22/19 06/22/19 Range/Units 19:00 06:41 07:31 WBC 11.6 H (3.8-10.6) k/uL Neutrophils # 11.3 H (1.3-7.7) k/uL Lymphocytes # 0.2 L (1.0-4.8) k/uL BUN (7-17) mg/dL Glucose (74-99) mg/dL POC Glucose (mg/dL) 157 H (75-99) mg/dL C-Reactive Protein 76.1 H (<10.0) mg/L 06/22/19 06/22/19 Range/Units 07:31 11:37 WBC (3.8-10.6) k/uL Neutrophils # (1.3-7.7) k/uL Lymphocytes # (1.0-4.8) k/uL BUN 38 H (7-17) mg/dL Glucose 204 H (74-99) mg/dL POC Glucose (mg/dL) 204 H (75-99) mg/dL C-Reactive Protein (<10.0) mg/L Microbiology - Last 24 Hours (Table) 06/21/19 10:04 Urine Culture - Preliminary Urine,Catheterized Assessment and Plan Plan: Assessment: #1. Acute on chronic back and hip pain related to spinal stenosis, the. Surgery is following #2. Severe and chronic obstructive pulmonary disease, with mild exacerbation #3. Enlarging mass in the right upper lung that may represent lung cancer #4. History of previous heavy tobacco use #5. History of congestive heart failure #6. History of pneumonia #7. History of cataract surgery Plan: Continue current medical , nebulized bronchodilators, Pulmicort and Perforomist, patient has been started on IV steroids for the purpose of hip and back pain. From pulmonary perspective she remains stable, no bronchoscopy with biopsies is planned, patient has very poor lung function, multiple comorbidities, and she is a poor candidate for bronchoscopy and treatment if lung cancer was diagnosed. This was discussed with patient's daughter and the patient's daughter agrees. We will continue with supportive treatment. Patient has been evaluated by orthopedic surgery, and epidural injections were recommended. I performed a history & physical examination of the patient and discussed their management with my nurse practitioner, Fozia Zafar. I reviewed the nurse practitioner's note and agree with the documented findings and plan of care. Lung sounds are positive for diminished breath sounds. The findings and the impression was discussed with the patient. I attest to the documentation by the nurse practitioner. Time with Patient: Less than 30
[2019-06-22] MEDS ORDERED: SENNOSIDES 8.6 MG TAB PO PRN (14:59)
[2019-06-22 15:03] VITALS: BMI 24.8
[2019-06-22 16:49] LABS: Glucose,Whole Blood 159 mg/dL (75-99)
--- NOTE | 2019-06-22 20:06 | PN ---
PROGRESS NOTE DATE OF SERVICE: 06/22/2019 This 83-year-old woman who was admitted with severe left leg pain as well as back pain and gait dysfunction also had shortness of breath. The patient did have a CT scan of the abdomen and pelvis to rule out the possibility of any intraabdominal pathology. It showed only bilateral pulmonary infiltrates and extensive other vascular disease. Some right kidney hydronephrosis was also noted. The creatinine is normal. CT scan of the brain was also noted. Past medical history reviewed. REVIEW OF SYSTEMS: CARDIOVASCULAR SYSTEM: No angina, palpitations. RESPIRATORY SYSTEM: As mentioned earlier. GI: As mentioned earlier. : No dysuria or retention. NERVOUS SYSTEM: No numbness, weakness. CURRENT MEDICATIONS: Reviewed. They include: 1. Tylenol p.r.n. 2. [place] 5 mg. 3. DuoNeb q.i.d. and p.r.n. 4. Aspirin. 5. Xanax. 6. Pulmicort. 7. Colace. 8. Perforomist. 9. Heparin. 10.Dilaudid. 11.NovoLog. 12.Zestril. 13.Solu-Medrol 60 IV q.6. 14.Protonix. 15.Senokot. 16.Ultram. PHYSICAL EXAMINATION: Patient is alert, oriented x2. The pulse is 98, blood pressure 100/61, respiration 18, temperature 98.2, pulse ox 94% on 3 L. HEENT: Conjunctivae normal. NECK: No jugular venous distention. CARDIOVASCULAR SYSTEM: S1, S2 muffled. RESPIRATORY SYSTEM: Breath sounds diminished at the bases. A few scattered rhonchi and crackles. ABDOMEN: Soft. Mild diffuse discomfort on palpation. Otherwise no mass palpable. LEGS: No edema. No swelling. Movement of the left hip is still painful. EXAMINATION OF THE BACK: Also some pain. NERVOUS SYSTEM: No focal deficit. LABS/IMAGING: WBC 11.6, hemoglobin 12.9 and glucose 204. Other labs are noted. CT scan personally reviewed by me. ASSESSMENT: 1. Severe left leg pain as well as back pain and gait dysfunction, possible degenerative joint disease, with multiple compression fractures of the lumbar vertebrae. 2. Possible bibasilar pneumonia. 3. Enlarged mass in the right upper lung, possibly lung cancer. 4. Chronic obstructive pulmonary disease, acute exacerbation. 5. Acute urinary tract infection, present on admission. 6. Right hydronephrosis. 7. Hypoalbuminemia with mild to moderate protein-calorie malnutrition. 8. Increased white count. 9. History of congestive heart failure; ejection unknown. 10.History of pneumonia. 11.History of chronic hypoxic respiratory failure, on 2 L nasal cannula. 12.History of osteopenia, back pain. 13.History of osteoporosis. 14.History of cataracts. 15.Severe gait dysfunction. 16.Remote history of nicotine dependence. 17.FULL CODE. RECOMMENDATIONS AND DISCUSSION: I recommend to continue current medications, continue with the monitoring, symptomatic treatment. I recommend continuing with the bronchodilators. I would add empiric antibiotics. CT scan findings are noted. We will follow the cultures and continue to monitor. The prognosis is guarded because of multiple complex medical issues. Further recommendations to follow. A CT scan of the brain was also noted. Dr. Lyon is following the patient closely. I would recommend PT/OT evaluation and possible ECF rehab also. The patient also had a mass in the upper chest, which also probably needs some more evaluation. The prognosis is guarded because of multiple complex medical issues. Further recommendations to follow. The patient is currently FULL CODE. The patient is a poor candidate for bronchoscopy and treatment at this time. MMODL / IJN: [id number] /
[2019-06-22 20:45] LABS: Glucose,Whole Blood 160 mg/dL (75-99)
[2019-06-22] MEDS: DOCUSATE 100 MG CAP PO SCH (21:16)
[2019-06-23] MEDS: HYDROcodone/APAP 5-325MG 1 EACH TAB PO PRN ×2 (05:12→22:46)
[2019-06-23] MEDS: methylPREDNISolone SOD SUCCI 125 MG/2 ML VIAL IV SCH ×2 (05:12→12:35)
[2019-06-23] MEDS: SODIUM CHLORIDE 0.9% 1,000 ML IV SCH (05:15)
[2019-06-23 07:05] LABS: Basophils % (A) 0 %; Eosinophils % (A) 0 %; HCT 32.7 % (34.0-46.0); HGB 10.5 gm/dL (11.4-16.0); Lymphocytes # (A) 0.3 k/uL (1.0-4.8); Lymphocytes % (A) 2 %; MCH 29.4 pg (25.0-35.0); MCHC 32.3 g/dL (31.0-37.0); MCV 90.9 fL (80.0-100.0); Mean Platelet Volume 7.8; Monocytes # (A) 0.3 k/uL (0-1.0); Monocytes % (A) 2 %; Neutrophils # (A) 15.9 k/uL (1.3-7.7); Neutrophils % (A) 96 %; Platelet Count 369 k/uL (150-450); RBC 3.59 m/uL (3.80-5.40); RDW 13.6 % (11.5-15.5); WBC 16.6 k/uL (3.8-10.6)
[2019-06-23 07:08] LABS: Glucose,Whole Blood 129 mg/dL (75-99)
[2019-06-23] MEDS: INSULIN ASPART (NovoLOG) 100 UNIT/ML VIAL SQ SCH ×4 (07:15→20:36)
[2019-06-23 07:24] LABS: Potassium 4.2 mmol/L (3.5-5.1)
[2019-06-23] MEDS: PANTOPRAZOLE 40 MG TABLET PO SCH (07:26)
[2019-06-23] MEDS: LISINOPRIL 10 MG TAB PO SCH (07:26)
[2019-06-23] MEDS: HEPARIN SODIUM,PORCINE 5,000 UNIT/ML 1 ML VIAL SQ SCH ×2 (07:26→20:36)
[2019-06-23] MEDS: DOCUSATE 100 MG CAP PO SCH ×2 (07:27→20:36)
[2019-06-23] MEDS: ASPIRIN 81 MG PO SCH (07:27)
[2019-06-23] MEDS: traMADol 50 MG TAB PO SCH ×2 (07:27→17:13)
[2019-06-23] MEDS: CHOLECALCIFEROL 1,000 UNIT TAB PO SCH (07:27)
[2019-06-23] MEDS: IPRATROPIUM-ALBUTEROL 3 ML NEB INHALATION SCH ×4 (07:56→19:41)
[2019-06-23] MEDS: BUDESONIDE 1 MG/2 ML NEBU INHALATION SCH ×2 (07:56→19:41)
[2019-06-23] MEDS: FORMOTEROL FUMARATE 20 MCG/2 ML NEBU INHALATION SCH ×2 (07:56→19:57)
[2019-06-23 12:11] LABS: Glucose,Whole Blood 153 mg/dL (75-99)
--- NOTE | 2019-06-23 16:10 | P.PN ---
Subjective Progress Note Date: 06/23/19 Principal diagnosis: Acute on chronic back pain and hip pain of unclear etiology, history of severe chronic COPD with very mild exacerbation The patient is seen today 06/23/2019 in follow-up on the regular medical floor. She is currently sitting up in a chair at the bedside. Awake and alert in no acute distress. Maintaining good O2 saturations in the 90s on 3 L/m per nasal cannula. She's been afebrile. Blood culture reveals no growth to date. Urine culture positive for gram-negative bacilli. White count 16.6. Hemoglobin 10.5. Creatinine 0.81. She remains on IV Solu-Medrol, Pulmicort and Perforomist inhalations, DuoNeb inhalations, ceftriaxone. Objective - Vital Signs Vital signs: Vital Signs Temp 98.4 F 06/23/19 07:15 Pulse 94 06/23/19 15:53 Resp 18 06/23/19 07:15 BP 143/75 06/23/19 07:15 Pulse Ox 94 L 06/23/19 07:15 Intake & Output 06/22/19 06/23/19 06/23/19 18:59 06:59 18:59 Intake Total 590 Balance 590 Weight 52.163 kg Intake: Oral 590 Other: Voiding Method Toilet Toilet # Voids 3 3 1 - Exam GENERAL EXAM: Alert, frail looking, 83-year-old female patient, on 3 L of oxygen and the pulse ox 94% comfortable in no apparent distress. HEAD: Normocephalic/atraumatic. EYES: Normal reaction of pupils, equal size. Conjunctiva pink, sclera white. NOSE: Clear with pink turbinates. THROAT: No erythema or exudates. NECK: No masses, no JVD, no thyroid enlargement, no adenopathy. CHEST: No chest wall deformity. Symmetrical expansion. LUNGS: Equal air entry with diminished breath sounds bilaterally CVS: Regular rate and rhythm, normal S1 and S2, no gallops, no murmurs, no rubs ABDOMEN: Soft, nontender. No hepatosplenomegaly, normal bowel sounds, no guarding or rigidity. EXTREMITIES: No clubbing, no edema, no cyanosis, 2+ pulses and upper and lower extremities. MUSCULOSKELETAL: Muscle strength and tone normal. SPINE: No scoliosis or deformity SKIN: No rashes CENTRAL NERVOUS SYSTEM: No focal deficits, tone is normal in all 4 extremities. PSYCHIATRIC: Alert and oriented -3. Appropriate affect. Intact judgment and insight. - Labs CBC & Chem 7: 06/23/19 06:29 06/23/19 06:29 Labs: Abnormal Lab Results - Last 24 Hours (Table) 06/22/19 06/22/19 06/23/19 Range/Units 16:37 20:43 06:29 WBC 16.6 H (3.8-10.6) k/uL RBC 3.59 L (3.80-5.40) m/uL Hgb 10.5 L (11.4-16.0) gm/dL Hct 32.7 L (34.0-46.0) % Neutrophils # 15.9 H (1.3-7.7) k/uL Lymphocytes # 0.3 L (1.0-4.8) k/uL Sodium (137-145) mmol/L BUN (7-17) mg/dL Glucose (74-99) mg/dL POC Glucose (mg/dL) 159 H 160 H (75-99) mg/dL 06/23/19 06/23/19 06/23/19 Range/Units 06:29 07:07 11:56 WBC (3.8-10.6) k/uL RBC (3.80-5.40) m/uL Hgb (11.4-16.0) gm/dL Hct (34.0-46.0) % Neutrophils # (1.3-7.7) k/uL Lymphocytes # (1.0-4.8) k/uL Sodium 132 L (137-145) mmol/L BUN 37 H (7-17) mg/dL Glucose 137 H (74-99) mg/dL POC Glucose (mg/dL) 129 H 153 H (75-99) mg/dL Microbiology - Last 24 Hours (Table) 06/21/19 19:00 Blood Culture - Preliminary Blood No Growth after 24 hours 06/21/19 10:04 Urine Culture - Preliminary Urine,Catheterized Gram Neg Bacilli Assessment and Plan Assessment: #1. Acute on chronic back and hip pain related to spinal stenosis. Orthopedics is following #2. Severe and chronic obstructive pulmonary disease, with mild exacerbation #3. Enlarging mass in the right upper lung that may represent lung cancer #4. History of previous heavy tobacco use #5. History of congestive heart failure #6. History of pneumonia #7. History of cataract surgery Plan: The patient was seen and evaluated by Dr. Lyon. Computed tomography scan of the brain did not reveal any significant abnormalities. Results were discussed with the daughter at the bedside. No plans for bronchoscopy or biopsies at this point based on the patient's age and overall poor performance status. We will discontinue IV Solu-Medrol. We will add prednisone on a small burst and taper. Continue bronchodilators. Home once cleared medically. I, the cosigning physician, performed a history & physical examination of the patient. Lungs sounds are clear, diminished Maintaining good O2 saturations in the 90s on 3 L/m per nasal cannula I discussed the assessment and plan of care with my nurse practitioner, Kelly Schumacher. I attest to the above note as dictated by her.
[2019-06-23 17:06] LABS: Glucose,Whole Blood 145 mg/dL (75-99)
[2019-06-23 20:30] LABS: Glucose,Whole Blood 161 mg/dL (75-99)
--- NOTE | 2019-06-24 01:00 | PN ---
PROGRESS NOTE DATE OF SERVICE: 06/23/2019. This 83-year-old woman was admitted with severe leg pain and as well as gait dysfunction and possible degenerative joint disease. The patient also had significant compression fractures of the lumbar vertebra, also CT scan of the brain was also done which showed no acute abnormality, chronic small-vessel ischemic changes are noted. The patient also has COPD exacerbation. No chest pain. No palpitations. No fever. REVIEW OF SYSTEMS: Cardiovascular system: No angina or palpitations. Respiratory: As mentioned earlier. GASTROINTESTINAL: As mentioned earlier. : No dysuria or retention. CENTRAL NERVOUS SYSTEM: No numbness or weakness. CURRENT MEDICATIONS: Reviewed and include: 1. Tylenol p.r.n. 2. [place]ita 5 mg q.6h p.r.n. 3. DuoNeb q.i.d. and p.r.n. 4. Xanax 0.5 t.i.d. 5. Aspirin. 6. Pulmicort b.i.d. 7. Perforomist. 8. Heparin. 9. NovoLog. 10.Zestril. 11.Narcan. 12.Protonix. 13.Ultram. 14.Dose and admission schedule was reviewed. EXAM: Alert and oriented times three. Pulse 94, blood pressure 116/62, respirations 17, temperature 98.2, pulse ox 99% on room air. HEENT: Conjunctivae normal. NECK: No JVD. CARDIOVASCULAR: S1, S2 muffled. Respirations: Breath sounds diminished in the bases. Bilateral scattered rhonchi and crackles. ABDOMEN are soft, nontender. LEGS: No edema. No swelling. NERVOUS SYSTEM: No focal deficits. LABS: WBC 16.7, hemoglobin 10.5, sodium 132. ASSESSMENT: 1. Severe leg pain as well as back pain and gait dysfunction possibly degenerative joint disease with multiple compression fractures of the lumbar vertebra. 2. Chronic obstructive pulmonary disease acute exacerbation with possible bibasilar pneumonia, possibly gram-negative. 3. Enlarged mass in the right upper lung, possibly lung cancer. 4. Acute urinary tract infection present on admission. 5. Right hydronephrosis. 6. Hypoalbuminemia with mild to moderate protein calorie malnutrition. 7. Increased WBC. 8. History of congestive heart failure, ejection fraction unknown. 9. History of pneumonia. 10.History of chronic hypoxic respiratory failure on 2 L nasal cannula. 11.History of osteopenia, back pain. 12.History of osteoporosis. 13.History of cataracts. 14.Severe gait dysfunction. 15.Remote history of nicotine dependence. 16.FULL CODE. RECOMMENDATIONS AND DISCUSSION: I would recommend to continue current medications, continue to monitor. Symptomatic treatment. PT, OT evaluation. Closely follow with Dr. Lyon. Urine culture showed gram-negative bacilli. At this time, the patient is on broad-spectrum IV antibiotics. Prognosis guarded. Further recommendations to follow. PT/OT evaluation, possible ECF rehab. See orders for details. Once again the prognosis guarded. Further recommendations to follow. MMODL / IJN: [id number] /
[2019-06-24 06:50] LABS: Glucose,Whole Blood 89 mg/dL (75-99)
[2019-06-24 07:22] LABS: Basophils % (A) 0 %; Eosinophils # (A) 0.1 k/uL (0-0.7); Eosinophils % (A) 0 %; HCT 31.6 % (34.0-46.0); HGB 10.3 gm/dL (11.4-16.0); Lymphocytes # (A) 0.4 k/uL (1.0-4.8); Lymphocytes % (A) 2 %; MCH 30.1 pg (25.0-35.0); MCHC 32.7 g/dL (31.0-37.0); MCV 92.1 fL (80.0-100.0); Mean Platelet Volume 7.5; Monocytes # (A) 0.7 k/uL (0-1.0); Monocytes % (A) 4 %; Neutrophils % (A) 93 %; Platelet Count 437 k/uL (150-450); RBC 3.43 m/uL (3.80-5.40); RDW 13.8 % (11.5-15.5); WBC 18.3 k/uL (3.8-10.6)
[2019-06-24 07:27] LABS: Calcium 8.9 mg/dL (8.4-10.2); Potassium 4.2 mmol/L (3.5-5.1)
[2019-06-24] MEDS: FORMOTEROL FUMARATE 20 MCG/2 ML NEBU INHALATION SCH ×2 (08:26→20:00)
[2019-06-24] MEDS: BUDESONIDE 1 MG/2 ML NEBU INHALATION SCH ×2 (08:26→19:48)
[2019-06-24] MEDS: IPRATROPIUM-ALBUTEROL 3 ML NEB INHALATION SCH ×4 (08:27→19:48)
[2019-06-24] MEDS: predniSONE 10 MG TAB PO SCH (08:41)
[2019-06-24] MEDS: DOCUSATE 100 MG CAP PO SCH ×2 (08:42→20:16)
[2019-06-24] MEDS: HEPARIN SODIUM,PORCINE 5,000 UNIT/ML 1 ML VIAL SQ SCH ×2 (08:42→20:16)
[2019-06-24] MEDS: LISINOPRIL 10 MG TAB PO SCH (08:42)
[2019-06-24] MEDS: CHOLECALCIFEROL 1,000 UNIT TAB PO SCH (08:43)
[2019-06-24] MEDS: traMADol 50 MG TAB PO SCH ×2 (08:43→17:44)
[2019-06-24] MEDS: ASPIRIN 81 MG PO SCH (08:44)
[2019-06-24] MEDS: PANTOPRAZOLE 40 MG TABLET PO SCH (08:44)
[2019-06-24] MEDS: INSULIN ASPART (NovoLOG) 100 UNIT/ML VIAL SQ SCH (08:44)
[2019-06-24] MEDS: SODIUM CHLORIDE 0.9% 1,000 ML IV SCH ×2 (09:26→20:17)
--- NOTE | 2019-06-24 13:58 | CDI ---
Documentation Clarification Form Date: 06/24/2019 01:42:44 PM From: Rebeka Posada RN CCDS Admit Date: 06/22/2019 03:01:00 PM Patient Name: Ashley Abernathy Visit Number: [id number] Discharge Date: ATTENTION: The Clinical Documentation Specialists (CDI) and [facility] Coding Staff appreciate your assistance in clarifying documentation. Please respond to the clarification below the line at the bottom and electronically sign. The CDI & [facility] Coding staff will review the response and follow-up if needed. Please note: Queries are made part of the Legal Health Record. If you have any questions, please contact the author of this message via ITS. Dr. Ashely Zee Alter and Oriented times two. Mildly confused. Is documented in the H & P History/Risk Factors:83-year-old female presented to [facility] from home via EMS with left hip pain. Son in-law also believes patient seems more confused for the past few days as well as been having accidents and not making it to the restroom. Clinical Indicators: Labs: Wbc 14.6; Neutrophils 13.2; UA Culture Klebsiella Pneumoniae CT Brain 06/22 There is mild to moderate diffuse age-related cerebral atrophy and advanced chronic small vessel ischemic change noted. Your progress notes 06/23 Alert and oriented times three. Treatment: Rocephin ivpb ; 0.9ns 60cchr In your professional opinion, please clarify the etiology of the Confusion Status, if known. * Metabolic Encephalopathy due to UTI * Metabolic Encephalopathy due to (please specify) * Encephalopathy ruled out * Other condition (please specify) * Unable to determine (Last Revision: September 2017) Metabolic Encephalopathy due to UTI MTDD
--- NOTE | 2019-06-24 15:15 | P.PAINCN ---
History of Present Illness - Reason for Consult Consult date: 06/24/19 - History of Present Illness This is a 83-year-old patient referred by Dr. Allen with a chief complaint of chronic pain in low back radiating to left lower extremity associated with left leg weakness as well as numbness and tingling to the point of her being unable to bear weight on the left side. Of note, she was admitted to the hospital with confusion, however this has since improved. She did have an episode of bowel and bladder incontinence prior to hospital admission, however since hospital a dmission has had no further episodes. Patient is a poor historian, history was gathered from patient as well as daughter and son-in-law are present in the room. Pain rated as 7/10. Since hospital admission, she has been ambulating slightly better with the help of physical therapy. Her current medications include Tylenol, [place] when necessary, Dilaudid when necessary. Review of systems is negative for unless stated in HPI. Physical exam: Vital Signs: Reviewed in EMR GENERAL: Elderly woman, Lying comfortably in bed, in no acute distress PSYCH: Mood and affect is appropriate. Awake and oriented, patient answering questions for herself. She is able to tell me current location as well as year. SKIN: Skin color, texture, turgor normal, bruises present in bilateral upper extremities HEENT: Normocephalic, atraumatic. EOM intact CV: No pedal edema RESP: Respirations are unlabored, no audible wheezing GI: Abdomen non-distended MUSCULOSKELETAL: Bilateral lower extremity strength is normal and symmetric. No atrophy or tone abnormalities are noted. Lumbar spine: Straight leg raising in the sitting position is positive on the left side for radicular pain. Tenderness to palpation over the lumbar spine and paraspinous muscles bilaterally. Extremities: Peripheral joint ROM is full and pain free without obvious instability or laxity in all four extremities. No edema noted. NEUR: Bilateral lower extremity coordination and muscle stretch reflexes are physiologic and symmetric. No loss of sensation is noted. Cranial nerves are grossly intact. Imaging: CT lumbar spine reviewed, which shows multilevel non-acute compression fractures as well as mild to moderate spinal canal stenosis at L23 and L3-4 and possibly L4-5. Assessment: 1. Lumbar compression fractures 2. Lumbar degenerative disc disease 3. Lumbar spinal canal stenosis Plan: 1. Procedures: We will schedule left-sided L2-3 and L3-4 transforaminal epidural steroid injections. Patient is currently on subcutaneous heparin 3 times a day, which will need to be stopped for the day of procedure. We could do this procedure at the earliest on 06/28/2019. Patient is likely to be discharged from the hospital to a rehab facility. We will work on coordinating this procedure as an outpatient. 2. Medications: Per primary team 3. Imaging: CT lumbar spine reviewed Disposition: For above-mentioned procedure Past Medical History Past Medical History: Heart Failure, COPD, Pneumonia, Respiratory Disorder Additional Past Medical History / Comment(s): Home oxygen at 2L/NC ATC, costochondritis, osteoporosis, back pain History of Any Multi-Drug Resistant Organisms: None Reported Past Surgical History: Bladder Surgery, Hysterectomy, Tonsillectomy Additional Past Surgical History / Comment(s): Bilateral cataract removals, colonoscopy Past Anesthesia/Blood Transfusion Reactions: No Reported Reaction, Unable to Obtain Additional Past Anesthesia/Blood Transfusion Reaction / Comm: has no had a blood transfusions Past Psychological History: No Psychological Hx Reported Additional Psychological History / Comment(s): Pt resides with her callie and son in law who are her caregivers. She ambulates with a walker. She has home oxygen and nebulizer. Smoking Status: Former smoker Past Alcohol Use History: None Reported Additional Past Alcohol Use History / Comment(s): Start smoking at 13 and stop smoking December 2018 Past Drug Use History: None Reported - Past Family History Father Family Medical History: Myocardial Infarction (MS) Mother Additional Family Medical History / Comment(s): Mother comitted suicide. Medications and Allergies Home Medications Medication Instructions Recorded Confirmed Type Aspirin [Adult Low Dose Aspirin EC] 81 mg PO DAILY 03/21/19 06/21/19 History Albuterol Nebulized [Ventolin 2.5 mg INHALATION RT-TID 04/20/19 06/21/19 History Nebulized] Budesonide [Pulmicort] 0.5 mg INHALATION RT-BID #60 nebu 04/24/19 06/21/19 Rx Cholecalciferol [Vitamin D3 (25 1,000 unit PO DAILY 06/21/19 06/21/19 History Mcg = 1000 Iu)] Formoterol Fumarate [Perforomist] 20 mcg INHALATION RT-BID 06/21/19 06/21/19 History predniSONE See Taper PO DAILY 06/21/19 06/21/19 History traMADol HCL [Ultram] 50 mg PO BID-W/MEALS 06/21/19 06/21/19 History Allergies Allergy/AdvReac Type Severity Reaction Status Date / Time No Known Allergies Allergy Verified 06/21/19 11:25 Physical Exam Vitals: Vital Signs Temp Pulse Pulse Resp BP Pulse Ox 06/24/19 08:46 96 06/24/19 08:38 100 06/24/19 08:37 100 06/24/19 08:27 104 H 97 06/24/19 07:00 97.4 F L 89 15 149/84 95 06/24/19 01:03 97.5 F L 102 H 16 156/99 97 06/23/19 20:03 95 06/23/19 19:57 95 06/23/19 19:56 95 06/23/19 19:43 93 06/23/19 15:53 94 06/23/19 15:41 94 06/23/19 15:00 98.1 F 94 17 116/62 99 06/23/19 11:49 98 06/23/19 11:33 96 Intake and Output 06/23/19 06/24/19 06/24/19 22:59 06:59 14:59 Intake Total 720 Output Total 700 Balance 20 Intake: Intake, IV Titration 240 Amount Sodium Chloride 0.9% 1, 240 000 ml @ 60 mls/hr IV . [id number] [facility] Rx#:[id number] Oral 480 Output: Urine 700 Other: Voiding Method Toilet # Voids 3 1 1 Results CBC & Chem 7: 06/24/19 06:57 06/24/19 06:57 Labs: Abnormal Lab Results - Last 24 Hours (Table) 06/23/19 06/23/19 06/23/19 Range/Units 11:56 16:54 20:27 WBC (3.8-10.6) k/uL RBC (3.80-5.40) m/uL Hgb (11.4-16.0) gm/dL Hct (34.0-46.0) % Neutrophils # (1.3-7.7) k/uL Lymphocytes # (1.0-4.8) k/uL Sodium (137-145) mmol/L BUN (7-17) mg/dL POC Glucose (mg/dL) 153 H 145 H 161 H (75-99) mg/dL 06/24/19 06/24/19 Range/Units 06:57 06:57 WBC 18.3 H (3.8-10.6) k/uL RBC 3.43 L (3.80-5.40) m/uL Hgb 10.3 L (11.4-16.0) gm/dL Hct 31.6 L (34.0-46.0) % Neutrophils # 17.0 H (1.3-7.7) k/uL Lymphocytes # 0.4 L (1.0-4.8) k/uL Sodium 135 L (137-145) mmol/L BUN 32 H (7-17) mg/dL POC Glucose (mg/dL) (75-99) mg/dL Microbiology - Last 24 Hours (Table) 06/21/19 19:00 Blood Culture - Preliminary Blood No Growth after 48 hours 06/21/19 10:04 Urine Culture - Final Urine,Catheterized Klebsiella pneumoniae PQRS Measure Charge Sheet PQRS Narrative: Smoking Status Former smoker Do You Want the Pneumonia Vaccine Up to Date Vaccine AT THIS TIME? Blood Pressure [Right Arm] 149/84 Blood Pressure 155/99 Pain Intensity [Left Leg] 3 Pain Intensity [None] 0 Pain Intensity 8 Pain Scale Used Numeric (1 - 10) Scale Used Non Verbal Pain Indicator Home Medications: Ambulatory Orders Aspirin [Adult Low Dose Aspirin EC] 81 mg PO DAILY 03/21/19 Albuterol Nebulized [Ventolin Nebulized] 2.5 mg INHALATION RT-TID 04/20/19 Budesonide [Pulmicort] 0.5 mg INHALATION RT-BID #60 nebu 04/24/19 Cholecalciferol [Vitamin D3 (25 Mcg = 1000 Iu)] 1,000 unit PO DAILY 06/21/19 Formoterol Fumarate [Perforomist] 20 mcg INHALATION RT-BID 06/21/19 predniSONE See Taper PO DAILY 06/21/19 traMADol HCL [Ultram] 50 mg PO BID-W/MEALS 06/21/19
--- NOTE | 2019-06-24 15:44 | P.PN ---
Subjective Progress Note Date: 06/24/19 Principal diagnosis: Acute on chronic back pain and hip pain of unclear etiology, history of severe chronic COPD with very mild exacerbation On 06/22/2019 patient seen in follow-up on medical surgical floor. She is awake and alert, she is sitting up in the recliner right now, and some back and hip pain but no acute distress. She is currently on 3 L oxygen with a pulse ox of 95-97%, she is afebrile, hemodynamically stable, on sounds are diminished, but breathing seems to be stable right now, patient does not appear to be in any significant respiratory distress, no major wheezing or congestion. Her daughter is at the bedside, and she states patient was noted to have some increased confusion and loss of bladder control. She has been evaluated by orthopedic surgery and epidural injections have been recommended. CT of the brain was obtained showing no acute intracranial hemorrhage or midline shift, mild to moderate diffuse age-related cerebral atrophy and fairly advanced chronic small vessel ischemic changes. Today's labs were noted. On 06/24/2019 patient is seen in follow-up on medical surgical floor. She is awake, in no acute distress, breathing easier today, feeling better, she remains on supplemental oxygen, at 3 L, her pulse ox is 95%, no fever or chills, hemodynamically stable. Patient was found to have Klebsiella pneumonia and urine culture, blood culture was negative. Is on ceftriaxone for antibiotic coverage. Remains on nebulized bronchodilators, and she has been transitioned to oral prednisone, today's labs have been reviewed, showing white blood cell count of 18.3, hemoglobin of 10.3, serum sodium of 135, the rest of the electrolytes were within normal limits, BUN of 32, creatinine 0.90 Objective - Vital Signs Vital signs: Vital Signs Temp 97.6 F 06/24/19 15:00 Pulse 80 06/24/19 15:00 Resp 15 06/24/19 15:00 BP 140/82 06/24/19 15:00 Pulse Ox 95 06/24/19 15:00 Intake & Output 06/23/19 06/24/19 06/24/19 18:59 06:59 18:59 Intake Total 720 Output Total 700 Balance 20 Intake: Intake, IV Titration 240 Amount Sodium Chloride 0.9% 1, 240 000 ml @ 60 mls/hr IV . [id number] [facility] Rx#:[id number] Oral 480 Output: Urine 700 Other: Voiding Method Toilet # Voids 1 1 2 - Exam GENERAL EXAM: Alert, frail looking, 83-year-old white female, on 3 L of oxygen and the pulse ox 95% comfortable in no apparent distress. HEAD: Normocephalic/atraumatic. EYES: Normal reaction of pupils, equal size. Conjunctiva pink, sclera white. NOSE: Clear with pink turbinates. THROAT: No erythema or exudates. NECK: No masses, no JVD, no thyroid enlargement, no adenopathy. CHEST: No chest wall deformity. Symmetrical expansion. LUNGS: Equal air entry with diminished breath sounds bilaterally CVS: Regular rate and rhythm, normal S1 and S2, no gallops, no murmurs, no rubs ABDOMEN: Soft, nontender. No hepatosplenomegaly, normal bowel sounds, no guarding or rigidity. EXTREMITIES: No clubbing, no edema, no cyanosis, 2+ pulses and upper and lower extremities. MUSCULOSKELETAL: Muscle strength and tone normal. SPINE: No scoliosis or deformity SKIN: No rashes CENTRAL NERVOUS SYSTEM: Alert and oriented -3. No focal deficits, tone is normal in all 4 extremities. PSYCHIATRIC: Alert and oriented -3. Appropriate affect. Intact judgment and insight. - Labs CBC & Chem 7: 06/24/19 06:57 06/24/19 06:57 Labs: Abnormal Lab Results - Last 24 Hours (Table) 06/23/19 06/23/19 06/24/19 Range/Units 16:54 20:27 06:57 WBC 18.3 H (3.8-10.6) k/uL RBC 3.43 L (3.80-5.40) m/uL Hgb 10.3 L (11.4-16.0) gm/dL Hct 31.6 L (34.0-46.0) % Neutrophils # 17.0 H (1.3-7.7) k/uL Lymphocytes # 0.4 L (1.0-4.8) k/uL Sodium (137-145) mmol/L BUN (7-17) mg/dL POC Glucose (mg/dL) 145 H 161 H (75-99) mg/dL 06/24/19 Range/Units 06:57 WBC (3.8-10.6) k/uL RBC (3.80-5.40) m/uL Hgb (11.4-16.0) gm/dL Hct (34.0-46.0) % Neutrophils # (1.3-7.7) k/uL Lymphocytes # (1.0-4.8) k/uL Sodium 135 L (137-145) mmol/L BUN 32 H (7-17) mg/dL POC Glucose (mg/dL) (75-99) mg/dL Microbiology - Last 24 Hours (Table) 06/21/19 19:00 Blood Culture - Preliminary Blood No Growth after 48 hours 06/21/19 10:04 Urine Culture - Final Urine,Catheterized Klebsiella pneumoniae Assessment and Plan Plan: Assessment: #1. Acute on chronic back and hip pain related to spinal stenosis. Surgery is following #2. Severe and chronic obstructive pulmonary disease, with mild exacerbation #3. Enlarging mass in the right upper lung that may represent lung cancer #4. History of previous heavy tobacco use #5. History of congestive heart failure #6. History of pneumonia #7. History of cataract surgery Plan: Continue current medical treatment, vital signs are stable, continue oral prednisone, nebulized bronchodilators, breathing is stable, patient is being considered for discharge to rehab facility today or tomorrow. I performed a history & physical examination of the patient and discussed their management with my nurse practitioner, Fozia Zafar. I reviewed the nurse practitioner's note and agree with the documented findings and plan of care. Lung sounds are positive for diminished breath sounds. The findings and the impression was discussed with the patient. I attest to the documentation by the nurse practitioner. Time with Patient: Less than 30
--- NOTE | 2019-06-24 22:36 | PN ---
PROGRESS NOTE DATE OF SERVICE: 06/24/2019 This 83-year-old woman was admitted with severe leg pain and gait dysfunction also had history of DJD. The patient also had COPD acute exacerbation. Patient being closely monitored. PT/OT evaluation and evaluation in progress at this time. Pain management consulted. PAST MEDICAL HISTORY: Reviewed. REVIEW OF SYSTEMS: Cardiovascular system: No angina or palpitations. RESPIRATORY: As mentioned earlier. GI: As mentioned earlier. no numbness or weakness. CURRENT MEDICATIONS: Reviewed and include: 1. Tylenol p.r.n. 2. [place] 5 mg q.6h p.r.n. 3. DuoNeb q.i.d. and p.r.n. 4. Xanax 0.25 t.i.d. 5. Aspirin. 6. Pulmicort. 7. Rocephin 1 g IV daily. 8. Colace. 9. Perforomist. 10.Heparin. 11.Zestril 10 mg p.o. daily. 12.Narcan. 13.Protonix. 14.Prednisone taper. 15.Ultram. 16.P.r.n. medications. PHYSICAL EXAMINATION: Patient is alert, oriented x3. Pulse 80. Blood pressure 140/82, respiration 16, temperature 97.6, pulse ox 94% on 3 L. HEENT: Conjunctivae normal. Oral mucosa moist. NECK is no jugular venous distention. No carotid bruit. No lymph node enlargement. Cardiovascular systems: S1, S2 muffled. RESPIRATION: Breath sounds diminished in the bases. A few scattered rhonchi and crackles. ABDOMEN: Soft, nontender. LEGS are no edema, no swelling. CENTRAL NERVOUS SYSTEM: No focal deficits. LABS: WBC 18.2, hemoglobin 10.2, sodium 135. ASSESSMENT: 1. Severe leg pain as well as back pain with gait dysfunction with possible degenerative joint disease, multiple compression fractures of the lumbar vertebra. 2. Chronic obstructive pulmonary disease acute exacerbation with possible bibasilar pneumonia possibly gram-negative. 3. Large mass in the right upper lung, possibly lung cancer. 4. Acute urinary tract infection present on admission. 5. Right hydronephrosis. 6. Hypoalbuminemia. 7. Mild to moderate protein calorie malnutrition. 8. Increased WBC. 9. History of congestive heart failure, ejection fraction unknown. 10.History of pneumonia. 11.History of chronic hypoxic respiratory failure on 2 L nasal cannula. 12.History of osteopenia, back pain. 13.History of osteoporosis. 14.History of cataracts. 15.History of severe gait dysfunction. 16.History of nicotine dependence. 17.FULL CODE. RECOMMENDATIONS AND DISCUSSION: In this 83-year-old woman who presented with multiple complex medical issues, we will monitor the patient closely. Continue the current medical management, monitoring. We will initiate continue with broad-spectrum IV antibiotics bronchodilators, pain medications. PT/OT evaluation. DVT prophylaxis. IS. Increase ambulation. Possible ECF rehab. Guarded prognosis because of multiple complex medical issues. Further recommendations to follow. MMODL / IJN: [id number] /
[2019-06-25] MEDS: traMADol 50 MG TAB PO SCH ×2 (07:59→16:44)
[2019-06-25] MEDS: predniSONE 10 MG TAB PO SCH (08:00)
[2019-06-25] MEDS: LISINOPRIL 10 MG TAB PO SCH (08:04)
[2019-06-25] MEDS: HEPARIN SODIUM,PORCINE 5,000 UNIT/ML 1 ML VIAL SQ SCH ×2 (08:05→20:41)
[2019-06-25] MEDS: DOCUSATE 100 MG CAP PO SCH ×2 (08:05→20:41)
[2019-06-25] MEDS: CHOLECALCIFEROL 1,000 UNIT TAB PO SCH (08:05)
[2019-06-25] MEDS: ASPIRIN 81 MG PO SCH (08:05)
[2019-06-25] MEDS: BUDESONIDE 1 MG/2 ML NEBU INHALATION SCH ×2 (09:11→19:06)
[2019-06-25] MEDS: FORMOTEROL FUMARATE 20 MCG/2 ML NEBU INHALATION SCH ×2 (09:11→19:06)
[2019-06-25] MEDS: IPRATROPIUM-ALBUTEROL 3 ML NEB INHALATION SCH ×4 (09:11→19:06)
[2019-06-25] MEDS: PANTOPRAZOLE 40 MG TABLET PO SCH (11:12)
--- NOTE | 2019-06-25 13:52 | P.PN ---
Subjective Progress Note Date: 06/25/19 Principal diagnosis: Acute on chronic back pain and hip pain of unclear etiology, history of severe chronic COPD with very mild exacerbation The patient is seen today 06/25/2019 in follow-up on the regular medical floor. She's been up ambulating in the hallway with physical therapy. No worsening shortness of breath, cough or congestion. Maintaining good O2 saturations in t he 90s on 2 L/m per nasal cannula. She's been afebrile. Blood culture reveals no growth to date. Urine culture positive for Klebsiella pneumoniae. White count 18.3. Hemoglobin 10.3. Creatinine 0.90. She remains on prednisone, Pulmicort and Perforomist inhalations, DuoNeb inhalations, ceftriaxone. Objective - Vital Signs Vital signs: Vital Signs Temp 98.4 F 06/25/19 07:00 Pulse 92 06/25/19 12:18 Resp 16 06/25/19 07:00 BP 164/74 06/25/19 07:00 Pulse Ox 98 06/25/19 09:11 Intake & Output 06/24/19 06/25/19 06/25/19 18:59 06:59 18:59 Intake Total 720 200 Balance 720 200 Intake: Intake, IV Titration 720 Amount Sodium Chloride 0.9% 1, 720 000 ml @ 60 mls/hr IV . [id number] [facility] Rx#:[id number] Oral 200 Other: Voiding Method Toilet # Voids 2 1 2 - Exam GENERAL EXAM: Alert, frail looking, 83-year-old female patient, on 2 L of oxygen and the pulse ox 98% comfortable in no apparent distress. HEAD: Normocephalic/atraumatic. EYES: Normal reaction of pupils, equal size. Conjunctiva pink, sclera white. NOSE: Clear with pink turbinates. THROAT: No erythema or exudates. NECK: No masses, no JVD, no thyroid enlargement, no adenopathy. CHEST: No chest wall deformity. Symmetrical expansion. LUNGS: Equal air entry with diminished breath sounds bilaterally CVS: Regular rate and rhythm, normal S1 and S2, no gallops, no murmurs, no rubs ABDOMEN: Soft, nontender. No hepatosplenomegaly, normal bowel sounds, no guarding or rigidity. EXTREMITIES: No clubbing, no edema, no cyanosis, 2+ pulses and upper and lower extremities. MUSCULOSKELETAL: Muscle strength and tone normal. SPINE: No scoliosis or deformity SKIN: No rashes CENTRAL NERVOUS SYSTEM: No focal deficits, tone is normal in all 4 extremities. PSYCHIATRIC: Alert and oriented -3. Appropriate affect. Intact judgment and insight. - Labs CBC & Chem 7: 06/24/19 06:57 06/24/19 06:57 Labs: Microbiology - Last 24 Hours (Table) 06/21/19 19:00 Blood Culture - Preliminary Blood No Growth after 72 hours Assessment and Plan Assessment: #1. Acute on chronic back and hip pain related to spinal stenosis. Orthopedics is following #2. Severe and chronic obstructive pulmonary disease, with mild exacerbation #3. Enlarging mass in the right upper lung that may represent lung cancer #4. History of previous heavy tobacco use #5. History of congestive heart failure #6. History of pneumonia #7. History of cataract surgery #8. Urinary tract infection secondary to Klebsiella pneumoniae Plan: The patient was seen and evaluated by Dr. Lyon. The patient is currently stable from the pulmonary standpoint. The plan is to transfer to subacute rehabilitation. Continue bronchodilators and prednisone taper. Currently on ceftriaxone. I, the cosigning physician, performed a history & physical examination of the patient. Lungs sounds are clear, diminished Maintaining good O2 saturations in the 90s on 2 L/m per nasal cannula I discussed the assessment and plan of care with my nurse practitioner, Kelly Schumacher. I attest to the above note as dictated by her.
--- NOTE | 2019-06-25 16:01 | P.PN ---
Subjective Progress Note Date: 06/25/19 Principal diagnosis: This is an 83-year-old female who was recently admitted with severe leg pain and gait dysfunction also has a history of degenerative joint disease and is being closely monitored. Pulmonary is following the patient. Patient has a history of COPD and at present with an acute exacerbation. Patient is being maintained on bronchodilators and steroids and will continue at this time. Patient was evaluated by pain management and is scheduled to receive an epidural injection with Dr. Soto on Friday at 10:30 AM. Patient will likely be going to [facility] after her epidural injection. Family is at the bedside and aware of the treatment plan. Objective - Vital Signs Vital signs: Vital Signs Temp 98.3 F 06/25/19 15:00 Pulse 106 H 06/25/19 15:00 Resp 18 06/25/19 15:00 BP 116/71 06/25/19 15:00 Pulse Ox 95 06/25/19 15:00 Intake & Output 06/24/19 06/25/19 06/25/19 18:59 06:59 18:59 Intake Total 720 200 Balance 720 200 Intake: Intake, IV Titration 720 Amount Sodium Chloride 0.9% 1, 720 000 ml @ 60 mls/hr IV . [id number] [facility] Rx#:[id number] Oral 200 Other: Voiding Method Toilet # Voids 2 1 2 - Exam Gen: This is a 83-year-old female sitting up in the chair and appears to be in no acute distress eating lunch with family at the bedside. HEENT: Head is atraumatic, normocephalic. Pupils equal, round. Sclerae is anicteric. NECK: Supple. No JVD. No lymphadenopathy. No thyromegaly. LUNGS: Breath sounds diminished at the bases with a few scattered rhonchi noted. No intercostal retractions. HEART: S1, S2 are muffled ABDOMEN: Soft. Bowel sounds are present. No masses. No tenderness. EXTREMITIES: No pedal edema. No calf tenderness. NEUROLOGICAL: Patient is awake, alert and oriented x3. Cranial nerves 2 through 12 are grossly intact. - Labs CBC & Chem 7: 06/24/19 06:57 06/24/19 06:57 Labs: Microbiology - Last 24 Hours (Table) 06/21/19 19:00 Blood Culture - Preliminary Blood No Growth after 72 hours Assessment and Plan Assessment: Severe leg pain as well as back pain with gait dysfunction with possible degenerative joint disease, multiple compression fractures of the lumbar vertebrae Chronic obstructive pulmonary disease, acute exacerbation with possible bibasilar pneumonia possibly gram-negative Large mass in the right upper lung, possibly lung cancer Acute urinary tract infection, present on admission Right hydronephrosis Hypoalbuminemia Mild to moderate protein calorie malnutrition Increased WBC History of congestive heart failure, ejection fraction unknown History of pneumonia History of chronic hypoxic respiratory failure on 2 L via nasal cannula History of osteopenia, back pain History of osteoporosis History of cataracts History of severe gait dysfunction History of nicotine dependence Full code Recommendations and discussion: Recommend to continue current medications, management, and symptomatic treatment. Pulmonary is following. Patient will continue working with PT/OT. Case management and social work are following for ECF placement. Urine culture finalized showing Klebsiella pneumonia and will continue on IV Rocephin at this time. Patient is scheduled to undergo an epidural injection with Dr. Esteban Soto this Friday at 10:30 AM. Will continue to monitor closely. Will repeat a.m. labs. Continue with IV antibiotics as well as bronchodilators at this time. Further recommendations to follow. Guarded prognosis. Once patient is stabilized and discharged, the patient may be going to [facility] ECF.
[2019-06-25] MEDS: SODIUM CHLORIDE 0.9% 1,000 ML IV SCH (16:53)
[2019-06-25] MEDS: HYDROcodone/APAP 5-325MG 1 EACH TAB PO PRN (20:41)
[2019-06-26 06:28] LABS: Basophils % (A) 0 %; Eosinophils # (A) 0.1 k/uL (0-0.7); Eosinophils % (A) 1 %; HCT 35.7 % (34.0-46.0); HGB 11.4 gm/dL (11.4-16.0); Lymphocytes # (A) 1.3 k/uL (1.0-4.8); Lymphocytes % (A) 9 %; MCH 29.5 pg (25.0-35.0); MCHC 31.9 g/dL (31.0-37.0); MCV 92.5 fL (80.0-100.0); Mean Platelet Volume 6.7; Monocytes # (A) 0.8 k/uL (0-1.0); Monocytes % (A) 6 %; Neutrophils # (A) 12.2 k/uL (1.3-7.7); Neutrophils % (A) 83 %; Platelet Count 478 k/uL (150-450); RBC 3.86 m/uL (3.80-5.40); RDW 13.9 % (11.5-15.5); WBC 14.7 k/uL (3.8-10.6)
[2019-06-26 06:34] LABS: Calcium 9.5 mg/dL (8.4-10.2); Potassium 4.6 mmol/L (3.5-5.1)
[2019-06-26] MEDS: predniSONE 10 MG TAB PO SCH (08:08)
[2019-06-26] MEDS: traMADol 50 MG TAB PO SCH ×2 (08:09→17:49)
[2019-06-26] MEDS: CHOLECALCIFEROL 1,000 UNIT TAB PO SCH (08:10)
[2019-06-26] MEDS: ASPIRIN 81 MG PO SCH (08:10)
[2019-06-26] MEDS: LISINOPRIL 10 MG TAB PO SCH (08:10)
[2019-06-26] MEDS: DOCUSATE 100 MG CAP PO SCH ×2 (08:10→20:33)
[2019-06-26] MEDS: HEPARIN SODIUM,PORCINE 5,000 UNIT/ML 1 ML VIAL SQ SCH ×2 (08:11→20:33)
[2019-06-26] MEDS: PANTOPRAZOLE 40 MG TABLET PO SCH (09:22)
[2019-06-26] MEDS: FORMOTEROL FUMARATE 20 MCG/2 ML NEBU INHALATION SCH ×2 (09:53→21:59)
[2019-06-26] MEDS: IPRATROPIUM-ALBUTEROL 3 ML NEB INHALATION SCH ×4 (09:54→21:59)
[2019-06-26] MEDS: BUDESONIDE 1 MG/2 ML NEBU INHALATION SCH ×2 (09:54→21:59)
[2019-06-26] MEDS: SODIUM CHLORIDE 0.9% 1,000 ML IV SCH (10:35)
[2019-06-26 19:57] LABS: Glucose,Whole Blood 95 mg/dL (75-99)
--- NOTE | 2019-06-26 21:37 | PN ---
PROGRESS NOTE DATE OF SERVICE: 06/26/2019 This 83-year-old woman who was admitted with gait dysfunction and multiple compression fractures of the lumbar vertebra, also had COPD acute exacerbation with bibasilar pneumonia. The patient is being closely monitored. No chest pain. No palpitations. No fever. EXAM: Alert and oriented x3. Pulse is 98, blood pressure 100/64, respirations 16, temperature 97.4, pulse ox 94% on 2 L. HEENT: Conjunctivae normal. Oral mucosa moist. NECK: No jugular venous distention. No lymph node enlargement. CARDIOVASCULAR: S1, S2. RESPIRATORY: Diminished breath sounds at the bases. Bilateral scattered rhonchi and crackles. ABDOMEN: Soft, nontender. LEGS: No edema, no swelling. NERVOUS SYSTEM: No focal deficits. LAB STUDIES: WBC 14.2, hemoglobin 11.4. Other labs are noted. Urine culture showed Klebsiella pneumoniae. ASSESSMENT: 1. Severe leg pain as well as gait dysfunction with possible degenerative joint disease, multiple compression fractures. 2. Gastroesophageal reflux disease. 3. Chronic obstructive pulmonary disease acute exacerbation, possible bibasilar pneumonia, possibly gram-negative. 4. Klebsiella pneumoniae urinary tract infection. 5. Large mass in the right upper lung, possible lung cancer. 6. Right hydronephrosis. 7. Hypoalbuminemia. 8. Mild to moderate protein calorie malnutrition. 9. Increased WBC. 10.History of congestive heart failure with ejection fraction unknown. 11.History of pneumonia. 12.History of chronic hypoxic respiratory failure on 2 L nasal cannula. 13.History of osteopenia, back pain. 14.History of osteoporosis. 15.History of cataracts. 16.History of severe gait dysfunction. 17.History of nicotine dependence. 18.FULL CODE. RECOMMENDATIONS AND DISCUSSION: I recommend to continue current medications, continue to monitor, continue symptomatic treatment. Otherwise, at this time I recommend to continue with broad-spectrum IV antibiotics, PT/OT evaluation, possible ECF rehab. Otherwise, follow closely with Pulmonary. Guarded prognosis. Further recommendations to follow. MMODL / IJN: [id number] /
[2019-06-27] MEDS: SODIUM CHLORIDE 0.9% 1,000 ML IV SCH ×2 (03:01→17:39)
[2019-06-27 06:48] LABS: Glucose,Whole Blood 84 mg/dL (75-99)
[2019-06-27] MEDS: ASPIRIN 81 MG PO SCH (08:55)
[2019-06-27] MEDS: predniSONE 10 MG TAB PO SCH (08:55)
[2019-06-27] MEDS: LISINOPRIL 10 MG TAB PO SCH (08:55)
[2019-06-27] MEDS: CHOLECALCIFEROL 1,000 UNIT TAB PO SCH (08:55)
[2019-06-27] MEDS: HEPARIN SODIUM,PORCINE 5,000 UNIT/ML 1 ML VIAL SQ SCH ×2 (08:56→20:31)
[2019-06-27] MEDS: PANTOPRAZOLE 40 MG TABLET PO SCH (08:56)
[2019-06-27] MEDS: DOCUSATE 100 MG CAP PO SCH ×2 (08:56→20:31)
[2019-06-27] MEDS: traMADol 50 MG TAB PO SCH ×2 (08:56→16:58)
[2019-06-27] MEDS: FORMOTEROL FUMARATE 20 MCG/2 ML NEBU INHALATION SCH ×2 (09:09→20:31)
[2019-06-27] MEDS: IPRATROPIUM-ALBUTEROL 3 ML NEB INHALATION SCH ×4 (09:09→20:32)
[2019-06-27] MEDS: BUDESONIDE 1 MG/2 ML NEBU INHALATION SCH ×2 (09:09→20:31)
[2019-06-27] MEDS: HYDROcodone/APAP 5-325MG 1 EACH TAB PO PRN (23:27)
--- NOTE | 2019-06-28 05:17 | PN ---
PROGRESS NOTE DATE OF SERVICE: 06/27/2019 This 83-year-old woman was admitted with gait dysfunction as well as leg pains also had possible DJD and multiple compression fractures also. The patient was scheduled to have epidural injection possibly tomorrow. PT, OT is evaluating the patient for possible ECF rehab also. No fever, no cough. PHYSICAL EXAMINATION: On exam, alert and oriented x3. Pulse is 102, blood pressure 133/77, respiration 16, temperature 97.9, pulse ox 95% on 3 L. HEENT: Conjunctivae normal. NECK: No jugular venous distention. CARDIOVASCULAR: S1, S2 muffled. RESPIRATORY: Breath sounds diminished at the bases. A few scattered rhonchi and crackles. ABDOMEN: Soft. No tenderness. NERVOUS SYSTEM: No focal deficits. LABS: WBC 14.7, hemoglobin 11.4. ASSESSMENT: 1. Severe leg pain as well as gait dysfunction with possible degenerative joint disease, multiple compression fractures with radiculopathy. 2. Gastroesophageal reflux disease. 3. Chronic obstructive pulmonary disease acute exacerbation with possible bibasilar pneumonia possibly gram-negative. 4. Klebsiella pneumoniae urinary tract infection, acute. 5. Large mass in the right upper lobe, possible lung cancer. 6. Right hydronephrosis. 7. Hypoalbuminemia. 8. Mild to moderate protein calorie malnutrition. 9. Increased WBC. 10.History of congestive heart failure with ejection fraction unknown. 11.History of pneumonia. 12.History of chronic hypoxic respiratory failure on 2 L nasal cannula. 13.History of osteopenia, back pain. 14.History of osteoporosis. 15.History of cataracts. 16.History of severe gait dysfunction. 17.History of nicotine dependence. 18.FULL CODE. RECOMMENDATIONS AND DISCUSSION: This 83-year-old woman who presented with multiple complex medical issues, we will monitor the patient closely. Continue the current medications. Continue symptomatic treatment. Continue with bronchodilators. Otherwise, pain management is planning possible epidural injections tomorrow. Otherwise, continue with antibiotics. Discussed with the family. Once the patient is stabilized, we will make arrangements to offer the patient to be transferred to ECF for further management but otherwise the prognosis extremely guarded. Further recommendations to follow. MMODL / IJN: [id number] /
[2019-06-28] MEDS: HEPARIN SODIUM,PORCINE 5,000 UNIT/ML 1 ML VIAL SQ SCH ×2 (08:01→19:41)
[2019-06-28] MEDS: DOCUSATE 100 MG CAP PO SCH ×2 (08:04→19:41)
[2019-06-28] MEDS: CHOLECALCIFEROL 1,000 UNIT TAB PO SCH (08:04)
[2019-06-28] MEDS: ASPIRIN 81 MG PO SCH (08:04)
[2019-06-28] MEDS: LISINOPRIL 10 MG TAB PO SCH (08:04)
[2019-06-28] MEDS: PANTOPRAZOLE 40 MG TABLET PO SCH (08:04)
[2019-06-28] MEDS: traMADol 50 MG TAB PO SCH ×2 (08:04→17:49)
[2019-06-28] MEDS: predniSONE 10 MG TAB PO SCH (08:04)
[2019-06-28] MEDS: FORMOTEROL FUMARATE 20 MCG/2 ML NEBU INHALATION SCH ×2 (08:12→19:14)
[2019-06-28] MEDS: BUDESONIDE 1 MG/2 ML NEBU INHALATION SCH ×2 (08:12→19:02)
[2019-06-28] MEDS: IPRATROPIUM-ALBUTEROL 3 ML NEB INHALATION SCH ×4 (08:12→19:02)
[2019-06-28] MEDS ORDERED: IV FLUID CONTINUATION 1,000 ML IV ONE (10:01)
--- NOTE | 2019-06-28 10:18 | P.PN ---
Subjective Progress Note Date: 06/28/19 Principal diagnosis: This is an 83-year-old female who was recently admitted with severe leg pain and gait dysfunction also has a history of degenerative joint disease and is being closely monitored. Pulmonary is following the patient. Patient has a history of COPD and at present with an acute exacerbation. Patient is being maintained on bronchodilators and steroids and will continue at this time. Patient was evaluated by pain management and is scheduled to receive an epidural injection with Dr. Soto on Friday at 10:30 AM. Patient will likely be going to [facility] after her epidural injection. Family is at the bedside and aware of the treatment plan. 06/28/2019 Patient is sitting up in bed in no acute distress with daughter at the bedside. Patient is scheduled to undergo an epidural injection with Dr. Soto this morning and consent has been obtained per nursing staff. Currently patient denies any chest pain, shortness of breath, or palpitations. Patient is afebrile. Patient denies any nausea or vomiting and has been tolerating diet. Patient states that she has not had a bowel movement in 2 days but denies any abdominal discomfort at this time. Abdomen is soft and non-tender upon palpation. Objective - Vital Signs Vital signs: Vital Signs Temp 98 F 06/28/19 07:48 Pulse 94 06/28/19 08:35 Resp 16 06/28/19 07:48 BP 165/89 06/28/19 07:48 Pulse Ox 98 06/28/19 07:48 Intake & Output 06/27/19 06/28/19 06/28/19 18:59 06:59 18:59 Intake Total 400 Balance 400 Intake: IV 400 Other: Voiding Method Toilet Toilet Bedside Commode Bedside Commode # Voids 2 3 - Exam Gen: This is a 83-year-old female sitting up in bed and appears to be in no acute distress with daughter at the bedside. Temp is 98F, pulse is 87, respirations are 16, blood pressure is 165/89, oxygen saturation is 98% on 3 L via nasal cannula. HEENT: Head is atraumatic, normocephalic. Pupils equal, round. Sclerae is anicteric. NECK: Supple. No JVD. No lymphadenopathy. No thyromegaly. LUNGS: Breath sounds diminished at the bases with a few scattered rhonchi noted. No intercostal retractions. HEART: S1, S2 are muffled ABDOMEN: Soft. Bowel sounds are present. No masses. No tenderness upon palpation. EXTREMITIES: No pedal edema. No calf tenderness. NEUROLOGICAL: Patient is awake, alert and oriented x3. Cranial nerves 2 through 12 are grossly intact. - Labs CBC & Chem 7: 06/26/19 06:06 06/26/19 06:06 Labs: Microbiology - Last 24 Hours (Table) 06/21/19 19:00 Blood Culture - Final Blood No Growth after 144 hours Assessment and Plan Assessment: Severe leg pain as well as back pain with gait dysfunction with possible degenerative joint disease, multiple compression fractures with radiculopathy Gastroesophageal reflux disease Chronic obstructive pulmonary disease, acute exacerbation with possible bibasilar pneumonia possibly gram-negative Large mass in the right upper lobe, possibly lung cancer Klebsiella pneumonia acute urinary tract infection Right hydronephrosis Hypoalbuminemia Mild to moderate protein calorie malnutrition Increased WBC History of congestive heart failure, ejection fraction unknown History of pneumonia History of chronic hypoxic respiratory failure on 2 L via nasal cannula History of osteopenia, back pain History of osteoporosis History of cataracts History of severe gait dysfunction History of nicotine dependence Full code Recommendations and discussion: Recommend to continue current medications, management, and symptomatic treatment. Pulmonary is following. Patient will continue working with PT/OT. Case management and social work are following for ECF placement. Will continue on IV Rocephin at this time. Patient is awaiting transport to undergo an epidural injection with Dr. Esteban Soto this morning at 10:30 AM. Will continue to monitor closely. Continue with IV antibiotics as well as bronchodilators at this time. Further recommendations to follow. Guarded prognosis. Once patient is stabilized and discharged, [facility] Possible discharge in 24 hours.
[2019-06-28] MEDS: SODIUM CHLORIDE 0.9% 1,000 ML IV SCH (11:14)
--- NOTE | 2019-06-28 12:33 | FL ---
EXAMINATION TYPE: FL guided pain mgmt statistic DATE OF EXAM: 06/28/2019 HISTORY: Flouroscopy time 13 seconds of fluoroscopy provided. IMPRESSION: 1. Fluoroscopy time.
[2019-06-28] MEDS: HYDROcodone/APAP 5-325MG 1 EACH TAB PO PRN (19:41)
[2019-06-29] MEDS: SODIUM CHLORIDE 0.9% 1,000 ML IV SCH (05:49)
[2019-06-29 06:50] LABS: Glucose,Whole Blood 81 mg/dL (75-99)
[2019-06-29 07:53] VITALS: RESP 19; TEMP 98
[2019-06-29] MEDS: CHOLECALCIFEROL 1,000 UNIT TAB PO SCH (08:01)
[2019-06-29] MEDS: predniSONE 10 MG TAB PO SCH (08:01)
[2019-06-29] MEDS: ASPIRIN 81 MG PO SCH (08:01)
[2019-06-29] MEDS: DOCUSATE 100 MG CAP PO SCH (08:01)
[2019-06-29] MEDS: LISINOPRIL 10 MG TAB PO SCH (08:01)
[2019-06-29] MEDS: PANTOPRAZOLE 40 MG TABLET PO SCH (08:01)
[2019-06-29] MEDS: traMADol 50 MG TAB PO SCH (08:01)
[2019-06-29] MEDS: FORMOTEROL FUMARATE 20 MCG/2 ML NEBU INHALATION SCH (08:52)
[2019-06-29] MEDS: BUDESONIDE 1 MG/2 ML NEBU INHALATION SCH (08:52)
[2019-06-29] MEDS: IPRATROPIUM-ALBUTEROL 3 ML NEB INHALATION SCH ×2 (08:52→12:50)
--- NOTE | 2019-06-29 08:53 | P.PCN ---
Date of Procedure: 06/28/19 Procedure(s) Performed: PREOPERATIVE DIAGNOSIS: Lumbar radiculopathy POSTOPERATIVE DIAGNOSIS: Lumbar radiculopathy Attending physician: Yousif Soto M.D. PROCEDURE 1. Transforaminal epidural steroid injection under fluoroscopic guidance L2-3, L3-4 level, left side 2. Lumbar epidurogram ANESTHESIA: Local with 1% lidocaine 3 ml ; no IV sedation PROCEDURE INDICATION: The patient with low back pain and radiculopathy symptoms unresponsive to conservative treatment. Fluoroscopy was used for the procedure and fluoroscopic images were saved to the radiology portion of patient's chart. PROCEDURE DESCRIPTION / TECHNIQUE: The patient was seen and identified in the preoperative area. Risks, benefits, complications, and alternatives were discussed with the patient. The patient agreed to proceed with the procedure and signed the consent. IV was started, and vital signs were stable. Patient was taken to the OR and time out was completed. The patient was placed in the prone position on procedure table and a pillow was placed under the abdomen to reduce lumbar lordosis. The lumbosacral area was prepped and draped in the usual sterile fashion. Vital signs were closely monitored during the procedure. Conscious sedation was used. Using oblique fluoroscopy, the chin of the ``Nabil dog and the skin and deeper tissues just below was localized with 1% lidocaine. Subsequently, a 22- gauge 3.5-inch spinal needle was advanced under a tunneled view fluoroscopic guidance just underneath the chin of the ``Nabil dog . Under lateral fluoroscopy, the needle was then advanced to the posterior border of the foramen. After negative aspiration of CSF and blood and with no paresthesias, 1 mL of Isovue-200 contrast dye was injected under live fluoroscopy and there was no evidence of intravascular injection. The injectate solution consisting of 10 mg of dexamethasone with 2 mL of 1% lidocaine was then delivered- 1.5 mL at each level. The needle was withdrawn intact. At the end of the procedure, skin was cleansed, and bandages were applied. COMPLICATIONS: None COMMENTS: DISPOSITION / PLANS: The patient was placed in a supine position and transferred to her inpatient room. Home discharge instructions were given to the patient by the staff. The patient will follow up in clinic in 2-4 weeks.
[2019-06-29] MEDS: HEPARIN SODIUM,PORCINE 5,000 UNIT/ML 1 ML VIAL SQ SCH (09:41)
[2019-06-29 11:51] VITALS: BP 132/58; PULSE 96
[2019-06-29 12:01] LABS: Glucose,Whole Blood 138 mg/dL (75-99)
--- NOTE | 2019-06-29 12:35 | P.DS ---
Providers Date of admission: 06/22/19 15:01 Expected date of discharge: 06/29/19 Attending physician: Ashely Zee Consults: 06/21/19 12:04 Consult Physician Stat Consulting Provider: Brijesh Lyon Consult Reason/Comments: COPD exacerbation, lung mass Do you want consulting provider notified?: Yes 06/21/19 17:03 Consult Physician Routine Consulting Provider: Tiago Allen Consult Reason/Comments: back pain djd Do you want consulting provider notified?: Yes 06/22/19 12:14 Consult to Anesthesia Routine Consulting Provider: Anesthesia,Services Consult Reason/Comments: Left lower extremity radiculopathy, spinal stenosis for possible GLORIA Primary care physician: [facility] Course: Final diagnosis Severe leg pain as well as back pain with gait dysfunction with possible degenerative joint disease, multiple compression fractures with radiculopathy Gastroesophageal reflux disease Chronic obstructive pulmonary disease, acute exacerbation with possible bibasilar pneumonia possibly gram-negative Large mass in the right upper lobe, possibly lung cancer Klebsiella pneumonia acute urinary tract infection Right hydronephrosis Hypoalbuminemia Mild to moderate protein calorie malnutrition Increased WBC History of congestive heart failure, ejection fraction unknown History of pneumonia History of chronic hypoxic respiratory failure on 2 L via nasal cannula History of osteopenia, back pain History of osteoporosis History of cataracts History of severe gait dysfunction History of nicotine dependence Full code Discharge disposition Patient is being discharged in a stable condition with guarded prognosis to [facility] for continued PT/OT therapy. Patient will continue her short course of oral antibiotics in the form of Ceftin 500 mg twice daily for the next 3 days and then may discontinue. Patient will follow-up with Dr. Allen in the outpatient setting along with pain management as discussed and scheduled. Total time taken is 35 minutes. History of present illness This is an 83-year-old female who was recently admitted with severe leg pain and gait dysfunction with a history of degenerative joint disease and was being closely monitored. Patient was also having acute exacerbation of her COPD and pulmonary was following closely as well. Patient will continue on bronchodilators along with a steroid taper in the outpatient setting upon discharge. During hospitalization patient underwent an epidural injection with Dr. Soto and will be following up with them in the outpatient setting in 1-2 weeks. Currently patient's condition is stable and is ready for discharge to [facility] today. Daughter at the bedside and is agreeable with this treatment plan. Currently patient denies any chest pain, shortness of breath, or palpitations. Patient is afebrile. Patient denies any nausea or vomiting and has been tolerating diet. Discussed with the patient at length about continuing to work with physical therapy at [facility] along with continuing to cough and deep breathe. Guarded prognosis. On exam vital signs are stable. Temp is 98F, pulse is 96, respirations are 19, blood pressure is 132/58 , pulse ox is 94% on 3 L via nasal cannula. She normally wears 2-3 L via nasal cannula at home. Cardio S1, S2 are present. Respiratory system shows diminished breath sounds at the bases with a few scattered rhonchi noted. Abdomen is soft, thin, nontender. Nervous system shows no focal deficits with a moderate diffuse weakness. Please refer to medication reconciliation sheet for a list of medications. Patient Condition at Discharge: Good Plan - Discharge Summary Discharge Rx Participant: No New Discharge Prescriptions: New Cefuroxime Axetil [Ceftin] 500 mg PO BID 3 Days #6 tab Docusate [Colace] 100 mg PO BID cap Pantoprazole [Protonix] 40 mg PO AC-BRKFST tablet.dr Shrestha [Senokot] 8.6 mg PO BID PRN tab PRN Reason: Constipation Budesonide/Formoterol Fumarate [Symbicort 160-4.5 Mcg Inhaler] 1 puff IH BID #1 hfa.aer.ad Acetaminophen Tab [Tylenol] 650 mg PO Q6HR PRN tab PRN Reason: Mild Pain Or Fever > 100.5 traMADol HCl [Ultram] 50 mg PO Q6H PRN #6 tab PRN Reason: Moderate Pain Lisinopril [Zestril] 10 mg PO DAILY tab HYDROcodone/APAP 5-325MG [[place] 5-325] 1 each PO Q6HR PRN #3 tab PRN Reason: Moderate Pain Continue Aspirin [Adult Low Dose Aspirin EC] 81 mg PO DAILY Albuterol Nebulized [Ventolin Nebulized] 2.5 mg INHALATION RT-TID Budesonide [Pulmicort] 0.5 mg INHALATION RT-BID #60 nebu Cholecalciferol [Vitamin D3 (25 Mcg = 1000 Iu)] 1,000 unit PO DAILY predniSONE See Taper PO DAILY Discontinued traMADol HCL [Ultram] 50 mg PO BID-W/MEALS Formoterol Fumarate [Perforomist] 20 mcg INHALATION RT-BID Discharge Medication List Aspirin [Adult Low Dose Aspirin EC] 81 mg PO DAILY 03/21/19 [History] Albuterol Nebulized [Ventolin Nebulized] 2.5 mg INHALATION RT-TID 04/20/19 [History] Budesonide [Pulmicort] 0.5 mg INHALATION RT-BID #60 nebu 04/24/19 [Rx] Cholecalciferol [Vitamin D3 (25 Mcg = 1000 Iu)] 1,000 unit PO DAILY 06/21/19 [History] predniSONE See Taper PO DAILY 06/21/19 [History] Acetaminophen Tab [Tylenol] 650 mg PO Q6HR PRN tab 06/25/19 [Rx] Budesonide/Formoterol Fumarate [Symbicort 160-4.5 Mcg Inhaler] 1 puff IH BID #1 hfa.aer.ad 06/25/19 [Rx] Cefuroxime Axetil [Ceftin] 500 mg PO BID 3 Days #6 tab 06/25/19 [Rx] Docusate [Colace] 100 mg PO BID cap 06/25/19 [Rx] Lisinopril [Zestril] 10 mg PO DAILY tab 06/25/19 [Rx] Pantoprazole [Protonix] 40 mg PO AC-BRKFST tablet. 06/25/19 [Rx] Sennosides [Senokot] 8.6 mg PO BID PRN tab 06/25/19 [Rx] traMADol HCl [Ultram] 50 mg PO Q6H PRN #6 tab 06/25/19 [Rx] HYDROcodone/APAP 5-325MG [[place] 5-325] 1 each PO Q6HR PRN #3 tab 06/29/19 [Rx] Follow up Appointment(s)/Referral(s): Jp Caraballo DO [Primary Care Provider] - 1-2 days Tiago Allen DO [Doctor of Osteopathic Medicine] - 07/20/19 1:00 pm [facility] [NON-STAFF] - 07/26/19 12:15 pm (Please follow up with the Pain Clinic on [facility] 3rd Floor on Friday at 1215 pm. ) Ambulatory/Diagnostic Orders: Complete Blood Count w/diff [LAB.AMB] Time Frame: 3 Days, Location: None Selected Patient Instructions/Handouts: Sciatica (DC), COPD (Chronic Obstructive Pulmonary Disease) (DC) Activity/Diet/Wound Care/Special Instructions: Patient home med in pharmacy in [facility]. Patient is going to [facility] for continued PT/OT therapy Continue antibiotics for the next 3 days and may discontinue Follow-up with primary care provider upon discharge Follow-up with pain management is discussed and scheduled Continue current diet Discharge Disposition: TRANSFER TO SNF/ECF
== END 2019-06-29 13:40 | DRG 551 ==
LOC: EC 08:44 → 5NMEDONC 11:58 → 4SSUR 20:09 → OBSVTOIN 06-22 15:01 → 4SSUR 06-27 23:29
PROVIDERS: ADMIT Hospitalist; ATTEND Hospitalist
PROC: 3E0R33Z Introduction of Anti-inflammatory into Spinal Canal, Percutaneous Approach (ICD-10-PCS; 2019-06-28)
PROC: 00HU33Z Insertion of Infusion Device into Spinal Canal, Percutaneous Approach (ICD-10-PCS; principal; 2019-06-28 11:30)
PROC: 3E0R3BZ Introduction of Anesthetic Agent into Spinal Canal, Percutaneous Approach (ICD-10-PCS; 2019-06-28 11:30)
DX: M51.16 Intervertebral disc disorders with radiculopathy, lumbar region (principal); J15.6 Pneumonia due to other Gram-negative bacteria; G93.41 Metabolic encephalopathy; M80.88XA Other osteoporosis with current pathological fracture, vertebra(e), initial encounter for fracture; J44.1 Chronic obstructive pulmonary disease with (acute) exacerbation; J44.0 Chronic obstructive pulmonary disease with (acute) lower respiratory infection; E44.0 Moderate protein-calorie malnutrition; J96.11 Chronic respiratory failure with hypoxia; N13.6 Pyonephrosis; C34.11 Malignant neoplasm of upper lobe, right bronchus or lung; M48.061 Spinal stenosis, lumbar region without neurogenic claudication; Z87.01 Personal history of pneumonia (recurrent); B96.1 Klebsiella pneumoniae [K. pneumoniae] as the cause of diseases classified elsewhere; G89.29 Other chronic pain; I50.9 Heart failure, unspecified; K21.9 Gastro-esophageal reflux disease without esophagitis; M19.90 Unspecified osteoarthritis, unspecified site; R26.9 Unspecified abnormalities of gait and mobility; R32 Unspecified urinary incontinence; Z79.52 Long term (current) use of systemic steroids; Z79.82 Long term (current) use of aspirin; Z82.49 Family history of ischemic heart disease and other diseases of the circulatory system; Z87.891 Personal history of nicotine dependence; Z90.710 Acquired absence of both cervix and uterus; Z99.81 Dependence on supplemental oxygen; E88.09 Other disorders of plasma-protein metabolism, not elsewhere classified; Z98.42 Cataract extraction status, left eye; Z98.41 Cataract extraction status, right eye; Z79.899 Other long term (current) drug therapy
CPT/HCPCS: 36415; 64483; 64484; 70450; 71046; 74176; 80048; 80053; 81001; 82652; 85025; 85610; 85652; 85730; 86140; 87040; 87077; 87086; 87186; 94640; 94760; 96361; 96372; 96374; 96375; 99285